=== PATIENT | male | born 1970 | race African-American/Black ===

== ENCOUNTER 2024-01-14 08:51 | Emergency (ER) | payer OTHER, SELFPAY ==
--- NOTE | 2024-01-14 08:54 | ED.EYEPROB ---
HPI - Eye Problem General Chief complaint: Eye Problems Stated complaint: Right Eye Irritation Time Seen by Provider: 01/14/24 08:54 Source: patient Mode of arrival: ambulatory Limitations: no limitations History of Present Illness HPI Narrative: Patient is a 53-year-old male that presents with right eye irritation since Saturday. Reports eye redness and mild drainage. Denies any pain, vision changes or foreign body sensation. Related Data Allergies Allergy/AdvReac Type Severity Reaction Status Date / Time No Known Allergies Allergy Verified 01/14/24 09:26 Review of Systems Review of Systems: All systems reviewed & are unremarkable except as noted in HPI and below Constitutional: Constitutional: Denies body ache(s), Denies fever(s), Denies headache(s), Denies malaise and Denies weakness Eyes: Eyes: Denies blurry vision, Reports eye discharge, Reports irritation, Reports itchy eyes, Denies loss of vision and Denies eye pain ENT: Denies otalgia, Denies headache(s), Denies nasal discharge, Denies sinus pain and Denies sore throat Cardiovascular: Cardiovascular: Denies chest pain, Denies irregular heart rhythm and Denies dyspnea Respiratory: Respiratory: Denies dyspnea Gastrointestinal: Gastrointestinal: Denies abdominal pain, Denies diarrhea, Denies nausea and Denies vomiting Musculoskeletal: Musculoskeletal: Denies back pain, Denies myalgias and Denies arthralgias Integumentary/Breasts: Skin/Breast: Denies pruritus and Denies rash Neurologic: Denies headache(s), Denies loss of vision and Denies weakness Psychiatric: Psychiatric: Reports no additional psychiatric complaints Allergic/Immunologic: Allergic/Immunologic: Reports itchy eyes PMFSH Comments At time of signature, agree with nursing past medical, surgical, social and family history. There is no relevant family history pertinent to the presenting complaint. Exam Const: General: cooperative, healthy appearing, comfortable, no acute distress and well nourished Nutritional Appearance: well nourished Orientation/consciousness: patient oriented x3 Limitations: no limitations HENMT: Head: normal to inspection, normocephalic and atraumatic Ears: external ears normal Face/Nose/Sinus: Normal external nose present, normal facial exam and face symmetric Face and sinus: normal facial exam and face symmetric Mouth: Yes lip normal Eyes: General: appearance normal, both eyes and all related structures Visual Lorenzana: normal visual lorenzana by confrontation Alignment and Position: alignment normal and position normal Periorbital: periorbital findings normal Eyelids: eyelids normal Conjunctivae: conjunctival abnormality right conjunctival injection diffuse Sclera: scleral abnormality right scleral injection diffuse Pupils: Equal, round and reactive pupils present EOM: EOMs intact bilaterally Direct Ophthalmoscopy: no photophobia Other: No hyphema, no foreign body under the lids. Neck: Neck: normal visual inspection, full ROM, no lymphadenopathy and no meningeal signs Chest: Chest palpation & inspection: normal inspection of the chest Resp: Effort & Inspection: normal respiratory effort and able to speak in complete sentences Auscultation: clear to auscultation bilaterally Cardio: Rate: regular rate Rhythm: regular rhythm Heart sounds: S1 normal heart sound present and S2 normal heart sound present GI: Inspection: normal to inspection Skin: General skin exam: normal color and no rashes or lesions noted Neuro: General: patient oriented x3, moves all extremities and no meningeal signs Cranial nerves: Yes Equal, round and reactive pupils present Speech: normal speech Gait exam (Neuro): Normal gait present Extrem: General: normal to inspection, full ROM and no edema Psych: Appearance: grossly normal and well kempt Mental Status: mental status grossly normal Speech and movement: Normal speech and movement present Affect: normal affect Attitude: cooperat
[2024-01-14 09:03] VITALS: BP 120/78; PULSE 90; RESP 18; TEMP 36.9; O2SAT 100
== END 2024-01-14 09:30 | disposition home or self-care (01) ==
PROVIDERS: Emergency Provider Nurse Practitioner Family
DX: H10.89 Other conjunctivitis (principal)
CPT/HCPCS: 99203; G0463

== ENCOUNTER 2024-06-23 17:04 | Inpatient (IN) | payer OTHER, SELFPAY ==
[2024-06-23] VITALS (11 sets, daily range): BP systolic 127–165; BP diastolic 76–93; PULSE 115–123; RESP 16–23; TEMP 37.1–38.3; O2SAT 97–99; BMI 24.6
--- NOTE | ~2024-06-23 | CT_ITS ---
EXAMINATION: CT LE RT wo con DATE: 06/23/2024 22:06 INDICATION: Right foot cellulitis. TECHNIQUE: Computed tomography (CT) of the right lower limb was performed without intravenous contras t. Automated exposure control and iterative reconstruction technique were employed. The dose-length p roduct was 772.27 mGy-cm. COMPARISON: Right foot radiographs 06/23/2024 FINDINGS: Partially visualizes da and screw fixation of right tibia. No acute fracture. There is a s oft tissue defect of the second digit. There is soft tissue gas in the second digit and dorsal to the second metatarsal. There is gas within the bones of the second proximal, middle, and distal phalange s, consistent with osteomyelitis. There is mild osteoarthritis of some of the midfoot joints and inte rphalangeal joints. IMPRESSION: 1. Osteomyelitis involving second proximal, middle, and distal phalanges. Reviewed, dictated and finalized at location A.
--- NOTE | ~2024-06-23 | US_ITS ---
EXAMINATION: US soft tissue LE RT DATE: 06/23/2024 20:34 INDICATION: Right upper thigh lump. TECHNIQUE: Multiple grayscale and Doppler ultrasound images of the right lower limb were obtained. COMPARISON: None FINDINGS: In the right upper thigh, there is a 3.1 x 1.7 x 3.2 cm lymph node. IMPRESSION: 1. Enlarged lymph node in the right upper thigh, likely reactive. Reviewed, dictated and finalized at location A.
--- NOTE | ~2024-06-23 | XR_ITS ---
EXAMINATION: XR foot RT min 3V DATE: 06/23/2024 18:55 INDICATION: Right foot infection. Diabetes. TECHNIQUE: 3 views of right foot were obtained. COMPARISON: None. FINDINGS: Alignment is normal. No fracture. There is mild osteoarthritis of many of the midfoot joint s and interphalangeal joint. There is rightward and screw fixation of tibia. There is an enthesophyte at aspect of calcaneal tuberosity. There is a soft tissue defect involving the second digit. There i s soft tissue gas in the second digit. IMPRESSION: 1. Soft tissue defect and soft tissue gas involving the second digit. No specific evidence of osteomy elitis. Reviewed, dictated and finalized at location A. IMPRESSION: 1. Soft tissue defect and soft tissue gas involving the second digit. No specif ic evidence of osteomyelitis.
--- NOTE | 2024-06-23 17:16 | ED.WOUNDLAC ---
HPI - Wound/Laceration General Chief Complaint: Wound/Laceration <Charu House APRN - Last Filed: 06/23/24 17:23> Stated Complaint: DIABETIC FOOT WOUND <Charu House APRN - Last Filed: 06/23/24 17:23> Time Seen by Provider: 06/23/24 17:15 <Charu House APRN - Last Filed: 06/23/24 17:23> Focused HPI: Patient is a 53-year-old male presents to the ER with a right foot wound. He reports he is diabetic but does not take medication to control his blood sugar. Patient reports I wore the wrong shoes about 30 days ago and now my big toe and 2nd toe are infected. He reports he has not had much to eat over the last couple of days besides some orange juice. Patient denies pain in his right foot, but reports he does have feeling in that foot. He also endorses having a right upper thigh boil. Patient reports he has a primary care doctor but does not have any method of checking his blood sugar at home. He denies chest pain, shortness of breath, other signs/symptoms of illness. GENERAL: Well-appearing, well-nourished, and in no acute distress. HEAD: Normocephalic, atraumatic. CHEST: Clear to auscultation. ?No respiratory distress. HEART: Tachycardia and regular rhythm.? NEURO: ?Alert and oriented x3. SKIN: Patient's 1st digit on his right foot is boggy with whitened skin. It is not warm to the touch. Cap refill returns in approximately 3 seconds. Patient's 2nd digit on his right foot is necrotic, unable to assess skin on this digit d/t necrosis. Patient screened in triage and initial orders placed.? ?Additional care and disposition to be based upon?diagnostic testing and treatment. <Charu House APRN - Last Filed: 06/23/24 17:23> Focused HPI: Patient is a 53-year-old male presents to the ER with a right foot wound. He reports he is diabetic but does not take medication to control his blood sugar. Patient reports I wore the wrong shoes about 30 days ago and now my big toe and 2nd toe are infected. He reports he has not had much to eat over the last couple of days besides some orange juice. Patient denies pain in his right foot, but reports he does have feeling in that foot. He also endorses having a right upper thigh boil. Patient reports he has a primary care doctor but does not have any method of checking his blood sugar at home. He denies chest pain, shortness of breath, other signs/symptoms of illness. GENERAL: Well-appearing, well-nourished, and in no acute distress. HEAD: Normocephalic, atraumatic. CHEST: Clear to auscultation. ?No respiratory distress. HEART: Tachycardia and regular rhythm.? NEURO: ?Alert and oriented x3. SKIN: Patient's 1st digit on his right foot is boggy with whitened skin. It is not warm to the touch. Cap refill returns in approximately 3 seconds. Patient's 2nd digit on his right foot is necrotic, unable to assess skin on this digit d/t necrosis. Patient screened in triage and initial orders placed.? ?Additional care and disposition to be based upon?diagnostic testing and treatment. <Grace Montoya PA-C - Last Filed: 06/23/24 21:59> Source: patient <Grace Montoya PA-C - Last Filed: 06/23/24 21:59> Mode of arrival: ambulatory <Grace Montoya PA-C - Last Filed: 06/23/24 21:59> Limitations: no limitations <Grace Montoya PA-C - Last Filed: 06/23/24 21:59> History of Present Illness HPI narrative: Agree with above HPI. The patient reports it has been over 1 year that he has been on diabetic medication. <Grace Montoya PA-C - Last Filed: 06/23/24 21:59> Related Data Home Medications: Home Medications Medication Instructions Recorded Confirmed No Home Medications 06/23/24 06/23/24 <Charu House APRN - Last Filed: 06/23/24 17:23> Allergies/Adverse Reactions: Allergies Allergy/AdvReac Type Severity Reaction Status Date / Time No Kno
[2024-06-23 17:17] LABS: Glucose Point of Care 305 mg/dl (65-105)
--- NOTE | 2024-06-23 17:30 | ECG_ITS ---
Test Date: 2024-06-23 17:25:34 Measurements Intervals [place] Rate: 119 P: 62 GA: 139 QRS: 251 QRSD: 140 T: 30 QT: 320 QTc: 451 Interpretive Statements SINUS TACHYCARDIA POSSIBLE LEFT ATRIAL ENLARGEMENT [-0.1mV P WAVE IN V1/V2] RIGHT BUNDLE BRANCH BLOCK No previous ECG available for comparison Electronically Signed On 06-24-2024 09:38:53 CDT by Amrita Rangel M.D.
[2024-06-23] MEDS: SODIUM CHLORIDE 0.9% IV 1,000 ML 999 ML IV CONT ×2 (17:59→18:23)
[2024-06-23 18:00] LABS: Hematocrit 31.9 % (42.0-52.0); Hemoglobin 11.3 g/dL (14.0-18.0); Mean Corpuscular HGB Conc 35.4 g/dl (32-36); Mean Corpuscular Hemoglobin 26.8 pg (26-34); Mean Corpuscular Volume 75.8 fl (80-100); Mean Platelet Volume 10.6 fl (7.4-10.4); Platelet Count Result 347 k/mm3 (150-375); Red Blood Count 4.21 M/mm3 (4.6-6.20); Red Cell Distribution Width 12.3 % (11.5-14.5); White Blood Count 24.9 K/mm3 (4.5-10.0)
[2024-06-23] MEDS: CEFEPIME 2 GM/NS 50 ML 2 GM/50 ML BAG IVPB (18:00)
[2024-06-23 18:11] LABS: INR 1.2; Prothrombin Time 15.3 Seconds (11.1-14.7)
[2024-06-23 18:12] LABS: Partial Thromboplastin Time 37.3 Seconds (22.3-36.8)
[2024-06-23 18:14] LABS: Lactic Acid Reflex 1.3 mmol/L (0.7-2.0)
[2024-06-23 18:15] LABS: Alanine Aminotransferase 19 U/L (6-50); Albumin Level 4.1 g/dL (3.5-5.1); Alkaline Phosphatase 120 U/L (38-126); Anion Gap 11 mmol/L (4-12); Aspartate Amino Transferase 23 U/L (17-59); Bilirubin,Total 1.1 mg/dL (0.2-1.3); Blood Urea Nitrogen 17 mg/dL (9-20); Calcium 9.4 mg/dL (8.4-10.2); Carbon Dioxide 26 mmol/L (22-30); Chloride 90 mmol/L (98-107); Estimated CRCL calculation 50 ml/min; Estimated Glomerular Filt Rate 52; Glucose 300 mg/dL (65-110); Potassium 4.4 mmol/L (3.4-5.0); Sodium 127 mmol/L (137-145)
[2024-06-23 18:21] LABS: Hemoglobin A1C 10.8 % (<5.7)
[2024-06-23] MEDS: metroNIDAZOLE 500 MG/ISO 100ML 500 MG/100 ML BAG 100 MG IVPB (18:23)
[2024-06-23 18:34] LABS: Band Neutrophils Percent 3 % (0-6); Basophils Absolute Manual 0.24 K/mm3 (0.0-0.1); Basophils Percent Manual 1 % (0-1); Eosinophils Absolute Manual 0.24 K/mm3 (0.02-0.50); Eosinophils Percent Manual 1 % (0-4); Lymphocytes Absolute Manual 0.99 K/mm3 (1.1-4.5); Monocytes Absolute Manual 1.24 K/mm3 (0.1-0.90); Monocytes Percent Manual 5 % (3-9); Neutrophils Absolute Manual 22.16 K/mm3 (1.3-6.7); Neutrophils Percent Manual 86 % (46-73); Total Cells Counted 100
[2024-06-23 18:35] LABS: Beta-Hydroxybutyrate/Acetoacetate 0.63 mmol/L (0.02-0.27); Platelet Estimate Adequate (Adequate); Schistocytes None Seen
[2024-06-23] MEDS: VANCOMYCIN 2,000 MG/NS 500 ML 2,000 MG/500 ML BAG 250 MG IVPB (19:11)
[2024-06-23 19:15] LABS: CRP 37.1 mg/dL (<1.0)
[2024-06-23] MEDS: ACETAMINOPHEN 500 MG TABLET 1000 MG PO (21:38)
[2024-06-23] MEDS: CLINDAMYCIN 900 MG/D5W 50 ML 900 MG/50 ML PIGGYBACK 50 MG IVPB (21:38)
--- NOTE | 2024-06-23 21:52 | PC.NURSE ---
pt states they are still unable to urinate at this time and is educated to use call light with any urge to provide UA
--- NOTE | 2024-06-23 22:06 | PM.IMHP ---
H&P: HPI History of Present Illness Date/Time: 06/23/24 20:06 Chief Complaint: Foot wound Narrative: 53-year-old noncompliant diabetic with associated diabetic peripheral neuropathy who presented to the ER with worsening foot wound. The patient reports that approximately month ago he noticed a blister on his left toe which he popped. He was applying dressings every other day to the toe. Approximately 2 weeks ago he noticed that his 2nd toe acutely became black and as time progressed he noticed that the shape of the toe which changing. He states that he was suspicious that the toe was already beyond the point of saving but he still the not come in to the ER. Over the last 2 weeks knee developed swelling up into the ankle and anterior riojas. Over the last 5-6 days he has had increasing malodorous drainage from the base of the 1st and 2nd toe. The great toe has remained moist white in swollen. The area of abnormal shape that he referred to on his toe is where he has bone exposed from the tip of the medial 2nd toe down to the base of said toe. He has minimal sensation in the foot he can feel his foot being touched but denies having pain. He has had associated weakness and intermittent fevers up to 102. He has been having fevers for at least 5 days. He told the ER provider that he has not actually seen his primary care doctor in year. He told me he last saw his primary care doctor in May but I assume that this was likely May 2023. He stated at that time the pharmacy did not have his insurance information and by the time he gave the pharmacy is insurance information he has same day had put the medications back in never bothered to follow-up. He has not been taking any medications for his diabetes. He denies a history of hypertension. In the ER patient's blood pressures have been ranging between 130/70 up to 160/86. On arrival to the ER patient was significantly tachycardic with heart rates in the 120s to 130s. Initially he was afebrile but repeat temperature was 101?. He does report associated fatigue, body aches and has had nausea vomiting and diarrhea for the last day or 2. He has acute kidney injury on labs. He denies history of kidney disease but again has not followed up with his doctor in a year. In the ER he received 2 L of isotonic fluids, cefepime and vancomycin. At the time of my evaluation I requested the addition of clindamycin. Patient's glucose in the ER was elevated to 300 which correlated with his hemoglobin A1c of 10.8. He denies any associated pain in the foot or leg. He did mention an area of lump in the right anterior thigh with soft tissue ultrasound demonstrating reactive lymph noted that location. Review of Systems Review of Systems: 12 systems were reviewed with pertinent positives and negatives per HPI. Except as documented in the HPI, all other systems were reviewed and are negative. [facility] Past Medical History Medical History (Updated 06/23/24 @ 22:39 by Cecile Matthews DO) Diabetic neuropathy Erectile dysfunction associated with type 2 diabetes mellitus Full dentures Type 2 diabetes mellitus Surgical History Surgical History (Updated 06/23/24 @ 22:39 by Cecile Matthews DO) Status post open reduction with internal fixation of fracture Right Tibial fracture Family History Family History (Updated 06/23/24 @ 22:35 by Cecile Matthews DO) Mother , At age 74 Diabetes mellitus Father Age older than 80 years Social History Social History (Updated 06/23/24 @ 22:44 by Cecile Matthews DO) Social History: Patient lives in his own home. He is engaged. He is a lifelong nonsmoker. He does drink approximately 2 alcoholic beverages a week. He used to smoke marijuana but has not done so in many years. 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 He has 4 adult daughters and several grandchildren. Code status: Full code Surrogate decision maker: Dario benavides)
--- NOTE | 2024-06-23 23:15 | ADMGEN ---
This patient, Cristofer Farnsworth Jr., was admitted to Medical Room 258-01. Patient/family oriented to hospital policies and general routines including ID bracelet, bed and alarms, visiting hours, pain management, procedures, bathroom and other care routines, personal items, smoking policy, room service/diet, and visiting hours. Information on how to activate the Rapid Response Team has been discussed. Patient/Family are encouraged to report perceived risks to care and to ask questions if they do not understand what they are told or what they should do.
[2024-06-23] MEDS: SODIUM CHLORIDE 0.9% IV 1,000 ML 150 ML IV CONT (23:46)
[2024-06-24] VITALS (9 sets, daily range): BP systolic 130–135; BP diastolic 64–74; PULSE 64–115; RESP 16–20; TEMP 36.2–38.2; O2SAT 97–100
[2024-06-24 00:09] LABS: Add Urine Microscopic? YES; Appearance Urine Cloudy (Clear); Bilirubin Urine Negative (Negative); Blood Urine 2+ (Negative); Color Urine Yellow (Yellow); Glucose Urine UA Trace mg/dL (Negative); Hyaline Casts Urine Present /lpf; Ketones Urine 1+ mg/dL (Negative); Leukocyte Esterase Ur 1+ LEU/UL (Negative); Need Manual Microscopic Reviewed; Nitrate Urine Negative (Negative); Non Pathogenic Casts >20; Protein Urine 2+ mg/dL (Negative); RBC Urine 0-2 /hpf (0-2); Specific Grav Ur 1.016 (1.001-1.035); Squamous Epithelial Cell Urine Few /hpf (Few); WBC Urine 21-50 /hpf (0-3)
[2024-06-24 00:12] LABS: Bacteria Urine Trace /hpf
[2024-06-24] MEDS: CLINDAMYCIN 900 MG/D5W 50 ML 900 MG/50 ML PIGGYBACK 50 MG IVPB (05:01)
[2024-06-24 05:14] LABS: Basophils Absolute Auto 0.1 K/mm3 (0.0-0.1); Basophils Percent Auto 0.3 % (0.2-1.2); Eosinophils Percent Auto 0.1 % (0-4.4); Hematocrit 26.6 % (42.0-52.0); Hemoglobin 9.1 g/dL (14.0-18.0); Immature Granulocyte Absolute 0.23 K/mm3 (0.00-0.031); Immature Granulocyte Percent A 1.2 % (0-0.5); Lymphocytes Absolute Auto 1.56 K/mm3 (0.9-3.2); Lymphocytes Percent Auto 8.3 % (18.3-44.2); Mean Corpuscular HGB Conc 34.2 g/dl (32-36); Mean Corpuscular Hemoglobin 26.2 pg (26-34); Mean Corpuscular Volume 76.7 fl (80-100); Mean Platelet Volume 10.4 fl (7.4-10.4); Monocytes Absolute Auto 1.6 K/mm3 (0.1-0.6); Monocytes Percent Auto 8.7 % (2.6-8.5); Neutrophils Absolute Auto 15.4 K/mm3 (1.3-6.7); Neutrophils Percent Auto 81.4 % (45.5-73.1); Platelet Count Result 274 k/mm3 (150-375); Red Blood Count 3.47 M/mm3 (4.6-6.20); Red Cell Distribution Width 12.5 % (11.5-14.5); White Blood Count 18.9 K/mm3 (4.5-10.0)
[2024-06-24 05:34] LABS: Anion Gap 7 mmol/L (4-12); Blood Urea Nitrogen 16 mg/dL (9-20); Calcium 8.6 mg/dL (8.4-10.2); Carbon Dioxide 24 mmol/L (22-30); Chloride 99 mmol/L (98-107); Estimated CRCL calculation 69 ml/min; Estimated Glomerular Filt Rate > 60; Glucose 226 mg/dL (65-110); Potassium 4.3 mmol/L (3.4-5.0); Sodium 130 mmol/L (137-145)
--- NOTE | 2024-06-24 07:33 | P.PNIM_ITS ---
Progress Note: A&P Assessment and Plan (1) Sepsis: Qualifiers: Sepsis acute organ dysfunction status: unspecified Sepsis type: sepsis due to unspecified organism Qualified Code(s): A41.9 - Sepsis, unspecified o rganism Code(s): A41.9 - Sepsis, unspecified organism Status: Acute Assessment and Plan: 06/24/24: * Patient initially meeting sepsis criteria with WBC 24.9,Temp 101, HR 123, RR 21, NORMAN with creatinine 1.70. * After receiving 2L NS heart rate improved to 99, RR 16, temp 97.2, creatinine 1.20 * Right lower extremity CT showing osteomyelitis involving the 2nd proximal, middle, and distal phalanges * Initial white blood cell count 24.9, now down to 18.9 today * Creatinine 2.2 0 today * CRP 37.1 initially * Blood and urine cultures were obtained and pending * Continue vancomycin, Flagyl, cefepime * Will discontinue Clindamycin * Continue cardiac monitoring for now (2) Osteomyelitis of foot, right, acute: Code(s): M86.171 - Other acute osteomyelitis, right ankle and foot Status: Acute Assessment and Plan: 06/24/24: * Right foot x-ray showing soft tissue defect and soft tissue gas involving the 2nd digit * Soft tissue ultrasound of the right lower extremity shows an enlarged lymph node in the right upper thigh likely reactive * Right lower extremity CT showing osteomyelitis involving 2nd proximal, middle, and distal phalanges * Continue pain control * General surgery consulted * Continue NPO status for now * Continue IV antibiotics * Blood sugar controlled (3) Diabetic wet gangrene of the foot: Code(s): E11.52 - Type 2 diabetes mellitus with diabetic peripheral angiopathy with gangrene Status: Acute Assessment and Plan: See above (4) Uncontrolled diabetes mellitus: Qualifiers: Diabetes mellitus type: type 2 Glycemic state: with hyperglycemia Qualified Code(s): E11.65 - Type 2 diabetes mellitus with hyperglycemia Status: Acute Assessment and Plan: 06/24/24: * Blood sugars ranging 226-300 * Hgb A1C 10.8 * Accu checks AC/HS * Mid dose SSI ordered * hypoglycemic protocol in place * Diabetic diet ordered * Patient not on any home medication * conservation educator consult * Dietitian consult (5) Elevated blood pressure reading: Code(s): R03.0 - Elevated blood-pressure reading, without diagnosis of hypertension Status: Acute Assessment and Plan: 06/24/24: * Blood pressure ranging 127/89-160/86 * Patient currently does not take any home medications * hypertension with diabetes education. * Patient started on amlodipine 5 mg daily (6) Acute kidney injury: Code(s): N17.9 - Acute kidney failure, unspecified Status: Acute Assessment and Plan: 06/24/24: * Initial creatinine 1.70 * After 2 L of normal saline creatinine corrected to 1.20 * Continue to trend (7) Anemia: Code(s): D64.9 - Anemia, unspecified Status: Acute Assessment and Plan: 06/24/24: * Hgb 11.3 initially, now down to 9.1 * Check Iron, Ferritin, Vitamin B12, folic acid, and TSH Time Spent With Patient Time with patient: Greater than 35 minutes Subjective Date/time seen: 06/24/24 07:33 Interval history: Interval history: This is a 53-year-old male who presented to the hospital on 06/23/2024 for evaluation of a left foot wound. Workup in the hospital included right foot x- ray which showed soft tissue defect and soft tissue gas involving the 2nd digit no specific evidence of osteomyelitis. Soft tissue
--- NOTE | 2024-06-24 07:33 | PM.IMPN ---
Progress Note: A&P Assessment and Plan (1) Sepsis: Qualifiers: Sepsis acute organ dysfunction status: unspecified Sepsis type: sepsis due to unspecified organism Qualified Code(s): A41.9 - Sepsis, unspecified organism Code(s): A41.9 - Sepsis, unspecified organism Status: Acute Assessment and Plan: 06/24/24: Patient initially meeting sepsis criteria with WBC 24.9,Temp 101, HR 123, RR 21, NORMAN with creatinine 1.70. After receiving 2L NS heart rate improved to 99, RR 16, temp 97.2, creatinine 1.[address] showing osteomyelitis involving the 2nd proximal, middle, and distal phalanges Initial white blood cell count 24.9, now down to 18.9 today Creatinine 2.2 0 today CRP 37.1 initially Blood and urine cultures were obtained and pending Continue vancomycin, Flagyl, cefepime Will discontinue Clindamycin Continue cardiac monitoring for now (2) Osteomyelitis of foot, right, acute: Code(s): M86.171 - Other acute osteomyelitis, right ankle and foot Status: Acute Assessment and Plan: 06/24/24: Right foot x-ray showing soft tissue defect and soft tissue gas involving the 2nd digit Soft tissue ultrasound of the right lower extremity shows an enlarged lymph node in the right upper thigh likely reactive Right lower extremity CT showing osteomyelitis involving 2nd proximal, middle, and distal phalanges Continue pain control General surgery consulted Continue NPO status for now Continue IV antibiotics Blood sugar controlled (3) Diabetic wet gangrene of the foot: Code(s): E11.52 - Type 2 diabetes mellitus with diabetic peripheral angiopathy with gangrene Status: Acute Assessment and Plan: See above (4) Uncontrolled diabetes mellitus: Qualifiers: Diabetes mellitus type: type 2 Glycemic state: with hyperglycemia Qualified Code(s): E11.65 - Type 2 diabetes mellitus with hyperglycemia Status: Acute Assessment and Plan: 06/24/24: Blood sugars ranging 226-300 Hgb A1C 10.8 Accu checks AC/HS Mid dose SSI ordered hypoglycemic protocol in place Diabetic diet ordered Patient not on any home medication coding educator consult Dietitian consult (5) Elevated blood pressure reading: Code(s): R03.0 - Elevated blood-pressure reading, without diagnosis of hypertension Status: Acute Assessment and Plan: 06/24/24: Blood pressure ranging 127/89-160/86 Patient currently does not take any home medications hypertension with diabetes education. Patient started on amlodipine 5 mg daily (6) Acute kidney injury: Code(s): N17.9 - Acute kidney failure, unspecified Status: Acute Assessment and Plan: 06/24/24: Initial creatinine 1.70 After 2 L of normal saline creatinine corrected to 1.20 Continue to trend (7) Anemia: Code(s): D64.9 - Anemia, unspecified Status: Acute Assessment and Plan: 06/24/24: Hgb 11.3 initially, now down to 9.1 Check Iron, Ferritin, Vitamin B12, folic acid, and TSH Time Spent With Patient Time with patient: Greater than 35 minutes Subjective Date/time seen: 06/24/24 07:33 Interval history: Interval history: This is a 53-year-old male who presented to the hospital on 06/23/2024 for evaluation of a left foot wound. Workup in the hospital included right foot x-ray which showed soft tissue defect and soft tissue gas involving the 2nd digit no specific evidence of osteomyelitis. Soft tissue ultrasound showed an enlarged lymph node in the right upper thigh likely reactive. Lower extremity CT showing osteomyelitis involving 2nd proximal, middle, and distal phalanges. Initial labs showed a white blood cell count of 24.9, hemoglobin 11.3, band neutrophils 3, sodium 127, chloride 90, creatinine 1.7, EGFR 52, blood sugar ranging 226-305, hemoglobin A1c 10.8, C reactive protein 37.1, beta hydroxybutyrate 0.63. UA showed cloudy appearance, 2+
[2024-06-24 08:20] LABS: Glucose Point of Care 256 mg/dl (65-105)
[2024-06-24] MEDS: SODIUM CHLORIDE 0.9% IV 1,000 ML 150 ML IV CONT (08:30)
[2024-06-24 09:01] LABS: Cholesterol 99 mg/dL (0-200); HDL Direct 18 mg/dL; Triglycerides 96 mg/dL (<150)
[2024-06-24 09:15] LABS: LDL Cholesterol Direct 51 mg/dL
[2024-06-24 09:32] LABS: Iron 25 ug/dL (49-181)
[2024-06-24 09:42] LABS: Percent Iron Saturation 15 % (20-50)
[2024-06-24] MEDS: INSULIN ASPART (*BKC) 100 UNITS/ML SUB-Q ×3 (09:47→17:38)
[2024-06-24] MEDS: amLODIPine BESYLATE 5 MG TABLET PO (09:47)
[2024-06-24 10:02] LABS: Vitamin B12 > 1000.0 pg/mL (239-931)
[2024-06-24 12:11] LABS: Glucose Point of Care 216 mg/dl (65-105)
[2024-06-24] MEDS: CEFEPIME 2 GM/NS 50 ML 2 GM/50 ML BAG IVPB (12:43)
[2024-06-24] MEDS: SACCHAROMYCES BOULARDII 250 MG CAPSULE PO ×2 (14:00→17:37)
[2024-06-24] MEDS: metroNIDAZOLE 500 MG/ISO 100ML 500 MG/100 ML BAG 100 MG IVPB ×2 (14:00→21:44)
[2024-06-24] MEDS: VANCOMYCIN 1,500 MG/NS 500 ML 1,500 MG/500 ML BAG 250 MG IVPB (15:07)
--- NOTE | 2024-06-24 15:10 | PM.CNGS ---
Assessment and Plan Assessment and plan (1) Gangrene of toe of right foot: Code(s): I96 - Gangrene, not elsewhere classified Status: Acute Assessment and Plan: I have reviewed the CT and discussed the findings with the patient. He has a gangrenous necrotic 2nd toe right foot require amputation. CT does show proximally to the other digits. Will attempt to perform amputation the 2nd toe and avoid any further amputations at this time. I discussed with patient that this may require the wound to be left open to continue healing due to the infection. This might also require further amputations if the infection is not under control. Patient has hardware in his right tibia which would make below-knee amputation very difficult. I stressed the importance to the patient about adequate diabetes control to prevent future wound complications like this. Will plan for right 2nd toe ray amputation and incision and drainage of right 1st toe tomorrow. I discussed the procedure, risks, benefits, alternatives. Questions were answered. (2) Osteomyelitis of foot, right, acute: Code(s): M86.171 - Other acute osteomyelitis, right ankle and foot Status: Acute (3) Uncontrolled diabetes mellitus: Qualifiers: Diabetes mellitus type: type 2 Glycemic state: with hyperglycemia Qualified Code(s): E11.65 - Type 2 diabetes mellitus with hyperglycemia Status: Acute (4) Sepsis: Qualifiers: Sepsis acute organ dysfunction status: unspecified Sepsis type: sepsis due to unspecified organism Qualified Code(s): A41.9 - Sepsis, unspecified organism Code(s): A41.9 - Sepsis, unspecified organism Status: Acute History of Present Illness Consult details Consult date: 06/24/24 Reason for consult: other (Gangrene of 2nd toe of right foot) Requesting physician: Grace Montoya PA-C Narrative: This is a 53-year-old man who presented to the emergency department overnight with a right foot wound that was worsening. His right 2nd toe become turning necrotic about 1 month ago. He tried just treating this on his own at home but the toe continued to worsen. Over the past week there has been a very foul smell to the toe. He is also now getting some swelling and pain to the 1st and 3rd digits. He is diabetic has not been on any medication for long period of time. He was on metformin before this was causing significant diarrhea and he was then switched to [place] but had difficulty with insurance coverage. He knows that he has not been taking care this blood sugars. He was found to necrotic 2nd toe emergency depart x-ray confirmed evidence of osteomyelitis involving that toe. He was also showing signs of sepsis. Was then admitted for further treatment. Review of Systems Review of Systems: All systems reviewed & are unremarkable except as noted in HPI and below Constitutional: Constitutional: Reports fever(s) Eyes: Eyes: Denies change in vision ENT: Denies hearing loss, Denies neck pain and Denies sore throat Cardiovascular: Cardiovascular: Denies chest pain and Denies dyspnea Respiratory: Respiratory: Denies cough, Denies dyspnea and Denies wheezing Gastrointestinal: Gastrointestinal: Denies abdominal pain and Denies change in bowel habits Genitourinary: Genitourinary: Denies hematuria and Denies dysuria Musculoskeletal: Musculoskeletal: Reports as per HPI and Denies neck pain Allergic/Immunologic: Allergic/Immunologic: Denies wheezing [facility], [facility] Past Medical History Medical History (Updated 06/24/24 @ 08:22 by Bonnie York APRN) Diabetic neuropathy Erectile dysfunction associated with type 2 diabetes mellitus Full dentures Type 2 diabetes mellitus Surgical History Surgical History (Updated 06/23/24 @ 22:39 by Cecile Matthews DO) Status post open reduction with internal fixation of fracture Right Tibial fracture Family History Family History (Updated 06/23/24 @ 22:35 by Shannan
[2024-06-24 17:07] LABS: Glucose Point of Care 213 mg/dl (65-105)
[2024-06-24 20:16] LABS: Glucose Point of Care 181 mg/dl (65-105)
[2024-06-25] VITALS (19 sets, daily range): BP systolic 95–158; BP diastolic 65–80; PULSE 88–106; RESP 14–18; TEMP 36.2–38.3; O2SAT 95–100
[2024-06-25] MEDS: SODIUM CHLORIDE 0.9% IV 1,000 ML 100 ML IV CONT (00:01)
[2024-06-25] MEDS: ACETAMINOPHEN 500 MG TABLET 1000 MG PO (00:08)
[2024-06-25] MEDS: CEFEPIME 2 GM/NS 50 ML 2 GM/50 ML BAG IVPB ×2 (00:50→13:00)
[2024-06-25] MEDS: metroNIDAZOLE 500 MG/ISO 100ML 500 MG/100 ML BAG 100 MG IVPB ×3 (05:54→22:42)
[2024-06-25 05:59] LABS: Basophils Absolute Auto 0.1 K/mm3 (0.0-0.1); Basophils Percent Auto 0.3 % (0.2-1.2); Eosinophils Percent Auto 0.2 % (0-4.4); Hematocrit 26.8 % (42.0-52.0); Hemoglobin 9.3 g/dL (14.0-18.0); Immature Granulocyte Absolute 0.18 K/mm3 (0.00-0.031); Lymphocytes Absolute Auto 1.34 K/mm3 (0.9-3.2); Lymphocytes Percent Auto 7.7 % (18.3-44.2); Mean Corpuscular HGB Conc 34.7 g/dl (32-36); Mean Corpuscular Hemoglobin 26.7 pg (26-34); Mean Platelet Volume 10.1 fl (7.4-10.4); Monocytes Absolute Auto 1.5 K/mm3 (0.1-0.6); Monocytes Percent Auto 8.5 % (2.6-8.5); Neutrophils Absolute Auto 14.3 K/mm3 (1.3-6.7); Neutrophils Percent Auto 82.3 % (45.5-73.1); Platelet Count Result 269 k/mm3 (150-375); Red Blood Count 3.48 M/mm3 (4.6-6.20); Red Cell Distribution Width 12.6 % (11.5-14.5); White Blood Count 17.4 K/mm3 (4.5-10.0)
[2024-06-25 06:14] LABS: Alanine Aminotransferase 18 U/L (6-50); Albumin Level 3.2 g/dL (3.5-5.1); Alkaline Phosphatase 99 U/L (38-126); Anion Gap 6 mmol/L (4-12); Aspartate Amino Transferase 26 U/L (17-59); Bilirubin,Total 0.7 mg/dL (0.2-1.3); Blood Urea Nitrogen 12 mg/dL (9-20); Calcium 8.6 mg/dL (8.4-10.2); Carbon Dioxide 25 mmol/L (22-30); Chloride 101 mmol/L (98-107); Estimated CRCL calculation 91 ml/min; Estimated Glomerular Filt Rate > 60; Glucose 194 mg/dL (65-110); Sodium 132 mmol/L (137-145)
[2024-06-25 06:20] LABS: Vancomycin Trough 7.8 ug/mL (10.0-20.0)
[2024-06-25] MEDS: VANCOMYCIN 2,000 MG/NS 500 ML 2,000 MG/500 ML BAG 250 MG IVPB (07:37)
--- NOTE | 2024-06-25 07:49 | P.PNIM_ITS ---
Progress Note: A&P Assessment and Plan (1) Sepsis: Qualifiers: Sepsis acute organ dysfunction status: unspecified Sepsis type: sepsis due to unspecified organism Qualified Code(s): A41.9 - Sepsis, unspecified o rganism Code(s): A41.9 - Sepsis, unspecified organism Status: Acute Assessment and Plan: 06/24/24: * Patient initially meeting sepsis criteria with WBC 24.9,Temp 101, HR 123, RR 21, NORMAN with creatinine 1.70. * After receiving 2L NS heart rate improved to 99, RR 16, temp 97.2, creatinine 1.20 * Right lower extremity CT showing osteomyelitis involving the 2nd proximal, middle, and distal phalanges * Initial white blood cell count 24.9, now down to 18.9 today * Creatinine 2.2 today * CRP 37.1 initially * Blood and urine cultures were obtained and pending * Continue vancomycin, Flagyl, cefepime * Will discontinue Clindamycin * Continue cardiac monitoring for now 06/25/24: * Blood culture showing no growth today on preliminary read. * Urine culture negative. * Continue vancomycin, Flagyl, cefepime * White blood cell count down to 17.4, creatinine 0.90 * We can go ahead and DC continuous process mechanic (2) Osteomyelitis of foot, right, acute: Code(s): M86.171 - Other acute osteomyelitis, right ankle and foot Status: Acute Assessment and Plan: 06/24/24: * Right foot x-ray showing soft tissue defect and soft tissue gas involving the 2nd digit * Soft tissue ultrasound of the right lower extremity shows an enlarged lymph node in the right upper thigh likely reactive * Right lower extremity CT showing osteomyelitis involving 2nd proximal, middle, and distal phalanges * Continue pain control * General surgery consulted * Continue NPO status for now * Continue IV antibiotics * Blood sugar controlled 06/25/24: * Plan for surgery today with General surgery * Remain NPO * Continue IV fluids for now * Continue IV antibiotics * Continue pain control (3) Diabetic wet gangrene of the foot: Code(s): E11.52 - Type 2 diabetes mellitus with diabetic peripheral angiopathy with gangrene Status: Acute Assessment and Plan: See above (4) Uncontrolled diabetes mellitus: Qualifiers: Diabetes mellitus type: type 2 Glycemic state: with hyperglycemia Qualified Code(s): E11.65 - Type 2 diabetes mellitus with hyperglycemia Status: Acute Assessment and Plan: 06/24/24: * Blood sugars ranging 226-300 * Hgb A1C 10.8 * Accu checks AC/HS * Mid dose SSI ordered * hypoglycemic protocol in place * Diabetic diet ordered * Patient not on any home medication * geothermal powerplant mechanic helper consult * Dietitian consult 06/25/24: * Blood sugars ranging 181-197 * Will add Lantus 8 units tonight (5) Elevated blood pressure reading: Code(s): R03.0 - Elevated blood-pressure reading, without diagnosis of hypertension Status: Acute Assessment and Plan: 06/24/24: * Blood pressure ranging 127/89-160/86 * Patient currently does not take any home medications * hypertension with diabetes education. * Patient started on amlodipine 5 mg daily 06/25/24: * Continue amlodipine (6) Acute kidney injury: Code(s): N17.9 - Acute kidney failure, unspecified Status: Acute Assessment and Plan: 06/24/24: * Initial creatinine 1.70 * After 2 L of normal saline creatinine corrected to 1.20 * Continue to trend 06/25/24: * Creatinine 0.90 today (7) Anemia: Code(s): D64.9 - Anemia, unspecified
--- NOTE | 2024-06-25 07:49 | PM.IMPN ---
Progress Note: A&P Assessment and Plan (1) Sepsis: Qualifiers: Sepsis acute organ dysfunction status: unspecified Sepsis type: sepsis due to unspecified organism Qualified Code(s): A41.9 - Sepsis, unspecified organism Code(s): A41.9 - Sepsis, unspecified organism Status: Acute Assessment and Plan: 06/24/24: Patient initially meeting sepsis criteria with WBC 24.9,Temp 101, HR 123, RR 21, NORMAN with creatinine 1.70. After receiving 2L NS heart rate improved to 99, RR 16, temp 97.2, creatinine 1.[address] showing osteomyelitis involving the 2nd proximal, middle, and distal phalanges Initial white blood cell count 24.9, now down to 18.9 today Creatinine 2.2 today CRP 37.1 initially Blood and urine cultures were obtained and pending Continue vancomycin, Flagyl, cefepime Will discontinue Clindamycin Continue cardiac monitoring for now 06/25/24: Blood culture showing no growth today on preliminary read. Urine culture negative. Continue vancomycin, Flagyl, cefepime White blood cell count down to 17.4, creatinine 0.90 We can go ahead and DC continuous naturalization examiner (2) Osteomyelitis of foot, right, acute: Code(s): M86.171 - Other acute osteomyelitis, right ankle and foot Status: Acute Assessment and Plan: 06/24/24: Right foot x-ray showing soft tissue defect and soft tissue gas involving the 2nd digit Soft tissue ultrasound of the right lower extremity shows an enlarged lymph node in the right upper thigh likely reactive Right lower extremity CT showing osteomyelitis involving 2nd proximal, middle, and distal phalanges Continue pain control General surgery consulted Continue NPO status for now Continue IV antibiotics Blood sugar controlled 06/25/24: Plan for surgery today with General surgery Remain NPO Continue IV fluids for now Continue IV antibiotics Continue pain control (3) Diabetic wet gangrene of the foot: Code(s): E11.52 - Type 2 diabetes mellitus with diabetic peripheral angiopathy with gangrene Status: Acute Assessment and Plan: See above (4) Uncontrolled diabetes mellitus: Qualifiers: Diabetes mellitus type: type 2 Glycemic state: with hyperglycemia Qualified Code(s): E11.65 - Type 2 diabetes mellitus with hyperglycemia Status: Acute Assessment and Plan: 06/24/24: Blood sugars ranging 226-300 Hgb A1C 10.8 Accu checks AC/HS Mid dose SSI ordered hypoglycemic protocol in place Diabetic diet ordered Patient not on any home medication peer educator consult Dietitian consult 06/25/24: Blood sugars ranging 181-197 Will add Lantus 8 units tonight (5) Elevated blood pressure reading: Code(s): R03.0 - Elevated blood-pressure reading, without diagnosis of hypertension Status: Acute Assessment and Plan: 06/24/24: Blood pressure ranging 127/89-160/86 Patient currently does not take any home medications hypertension with diabetes education. Patient started on amlodipine 5 mg daily 06/25/24: Continue amlodipine (6) Acute kidney injury: Code(s): N17.9 - Acute kidney failure, unspecified Status: Acute Assessment and Plan: 06/24/24: Initial creatinine 1.70 After 2 L of normal saline creatinine corrected to 1.20 Continue to trend 06/25/24: Creatinine 0.90 today (7) Anemia: Code(s): D64.9 - Anemia, unspecified Status: Acute Assessment and Plan: 06/24/24: Hgb 11.3 initially, now down to 9.1 Check Iron, Ferritin, Vitamin B12, folic acid, and TSH 06/25/24: Iron 25, TIBC 165, iron saturation 15, ferritin 928, vitamin B 12 greater than a 1000, folate 12.0, TSH 1.850 Continue to trend Time Spent With Patient Time with patient: 25 - 35 minutes Subjective Date/time seen: 06/25/24 07:49 Interval history: Interval history: This is a 53-year-old male who presented to the hospital on
[2024-06-25 08:00] LABS: Glucose Point of Care 197 mg/dl (65-105)
[2024-06-25] MEDS: amLODIPine BESYLATE 5 MG TABLET PO (08:11)
[2024-06-25 12:23] LABS: Glucose Point of Care 172 mg/dl (65-105)
[2024-06-25] MEDS: LACTATED RINGERS 1,000 ML 30 ML IV CONT (12:30)
--- NOTE | 2024-06-25 12:47 | WPDHPUPDATE1 ---
History and Physical Update Update Date/Time: 06/25/24 12:47 History and Physical has been reviewed, including an updated exam of the patient. There are NO changes in the patient's condition. Risks, benefits, and alternatives have been discussed and questions answered. Patient agrees to proceed with procedure.
--- NOTE | 2024-06-25 13:00 | WPDANESEPPF ---
Anes - Initial Pre Proc Eval Procedure: Operation Date: 06/25/24 12:30 Proposed Procedures p Right Second Toe Ray Amputation, - Tevin Briscoe DO s Incision and Drainage Right First Toe - Tevin Briscoe DO Date/Time: 06/25/24 13:00 Surgeon: Cecile Matthews DO Pre Op Diagnosis: Necrotic Diabetic Toe Wounds/Sepsis Patient Data Age: 53 Gender: M Height: 1.8 m Weight: 80.1 kg Last Vital Signs Temp 36.4 C L 06/25/24 08:09 Pulse 96 06/25/24 08:09 Resp 16 06/25/24 08:09 BP 158/80 H 06/25/24 08:09 Pulse Ox 100 06/25/24 08:09 O2 Del Method Room Air 06/25/24 07:37 Allergies Allergy/AdvReac Type Severity Reaction Status Date / Time No Known Allergies Allergy Verified 06/23/24 22:36 Home Medications Medication Instructions Recorded Confirmed Type No Home Medications 06/23/24 06/23/24 History Laboratory Tests 06/24/24 06/24/24 06/25/24 16:58 19:44 05:53 WBC 17.4 H K/mm3 (4.5-10.0) RBC 3.48 L M/mm3 (4.6-6.20) Hgb 9.3 L g/dL (14.0-18.0) Hct 26.8 L % (42.0-52.0) MCV 77.0 L fl (80-100) MCH 26.7 pg (26-34) MCHC 34.7 g/dl (32-36) RDW 12.6 % (11.5-14.5) Plt Count 269 k/mm3 (150-375) MPV 10.1 fl (7.4-10.4) Immature Gran % (Auto) 1.0 H % (0-0.5) Neut % (Auto) 82.3 H % (45.5-73.1) Lymph % (Auto) 7.7 L % (18.3-44.2) Chester % (Auto) 8.5 % (2.6-8.5) Eos % (Auto) 0.2 % (0-4.4) Baso % (Auto) 0.3 % (0.2-1.2) Lymph # (Auto) 1.34 K/mm3 (0.9-3.2) Chester # (Auto) 1.5 H K/mm3 (0.1-0.6) Eos # (Auto) 0.0 K/mm3 (0-0.3) Baso # (Auto) 0.1 K/mm3 (0.0-0.1) Abs Immat Gran (auto) 0.18 H K/mm3 (0.00-0.031) Absolute Neuts (auto) 14.3 H K/mm3 (1.3-6.7) Absolute Nucleated RBC 0.000 K/mm3 (0.0-0.012) Nucleated RBC % 0.0 % (0.0-0.2) Sodium 132 L mmol/L (137-145) Potassium 4.0 mmol/L (3.4-5.0) Chloride 101 mmol/L (98-107) Carbon Dioxide 25 mmol/L (22-30) Anion Gap 6 mmol/L (4-12) BUN 12 mg/dL (9-20) Creatinine 0.90 mg/dL (0.7-1.3) Estim Creat Clear Calc 91 ml/min Estimated GFR > 60 (59 - ) Glucose 194 H mg/dL (65-110) POC Capillary Glucose 213 H mg/dl 181 H mg/dl (65-105) (65-105) Calcium 8.6 mg/dL (8.4-10.2) Total Bilirubin 0.7 mg/dL (0.2-1.3) AST 26 U/L (17-59) ALT 18 U/L (6-50) Alkaline Phosphatase 99 U/L (38-126) Total Protein 7.0 g/dL (6.3-8.2) Albumin 3.2 L g/dL (3.5-5.1) Vancomycin Trough 7.8 L ug/mL (10.0-20.0) 06/25/24 06/25/24 07:51 12:04 WBC RBC Hgb Hct MCV MCH MCHC RDW Plt Count MPV Immature Gran % (Auto) Neut % (Auto) Lymph % (Auto) Chester % (Auto) Eos % (Auto) Baso % (Auto) Lymph # (Auto) Chester # (Auto) Eos # (Auto) Baso # (Auto) Abs Immat Gran (auto) Absolute Neuts (auto) Absolute Nucleated RBC Nucleated RBC % Sodium Potassium Chloride Carbon Dioxide Anion Gap BUN Creatinine Estim Creat Clear Calc Estimated GFR Glucose POC Capillary Glucose 197 H mg/dl 172 H mg/dl (65-105) (65-105) Calcium Total Bilirubin AST ALT Alkaline Phosphatase Total Protein Albumin Vancomycin Trough Patient hx anesthesia problems: none Family hx anesthesia problems: none Results Review: All pre-operati
[2024-06-25] MEDS: BUPIVACAINE/EPINEPHRINE 0.5% 50 ML VIAL 20 ML INFILTRATE (13:32)
--- NOTE | 2024-06-25 14:23 | W.PM.PROC2 ---
Procedure Note - Detailed Date of Procedure 06/25/24 Pre-op Diagnosis Necrotic Diabetic Toe Wounds/Sepsis Post-op Diagnosis Same Procedure Performed Right 2nd toe ray amputation, incision and drainage of right 1st toe abscess Surgeon Tevin Briscoe, DO Anesthesia General and Local (0.5% bupivacaine with epinephrine) Indications This is a 53-year-old man who presented to the emergency department with a necrotic right 2nd toe. This was showing signs of with gangrene and x-rays confirmed osteomyelitis involving the phalanx as well. The infection was spreading proximally onto the base of the toe and there was also some swelling and fluctuance to the right 1st toe. He was admitted and placed on broad-spectrum IV antibiotics. Discussed with patient treatment options and decision was made to proceed with right 2nd toe ray amputation and incision and drainage of right 1st toe abscess. Findings Right 2nd toe ray amputation was performed. The infection was predominantly within the right 2nd toe but also was progressing proximally on to the subcutaneous space within forefoot. A ray amputation was performed of the right 2nd toe and I transected the metatarsal just proximal to the metatarsal head. I also made an incision over the lateral surface of the right great toe and drained some of the infection involving the right great toe. There was also a lot of callus that was carefully peeled away to adequately visualized the skin around the toe and forefoot. Due to the ongoing infection, I placed a Barby drain within the subcutaneous space of the forefoot and partially closed the incision with 3-0 nylon simple interrupted sutures. The right 2nd toe was sent to the lab for pathology. Description of Procedure Procedure as well as risks, benefits, and alternatives were discussed with the patient. Written consent was obtained prior to procedure. Patient was brought back to surgical suite. He was placed supine on operating table. Time-out was done to confirm patient and procedure. He was then intubated by anesthesia department. His right foot was prepped and draped in sterile fashion using Betadine prep. 0.5% bupivacaine with epinephrine was infiltrated locally around the forefoot and toe. A racquet incision was made around the right 2nd toe using a 15 blade scalpel. Electrocautery was used for hemostasis and for dissection through the subcutaneous tissue. I dissected through the tendinous and ligamentous attachments down to the metatarsal head. I then dissected just proximal to the 2nd metatarsal head using electrocautery. I then used a bone elevator to free up the tissue around the metatarsal. A small Haslet saw was then used to transect the metatarsal bone just proximal to the metatarsal head. The remaining tendinous attachments were taken down using electrocautery. This freed up the toe completely and it was removed and sent the lab for pathology. The wound was then probed for any further areas of purulent fluid. There was some tunneling along subcutaneous space on the proximal dorsal surface of forefoot. This was then irrigated with sterile saline. No other abnormalities were identified. I then made an incision over the lateral surface of the right great toe using a 15 blade scalpel. A curette was then used to strip away some of the necrotic skin on the surface. No deeper areas of purulent fluid were identified. The callus around the great toe and forefoot the 1st and 2nd digits was carefully peeled away. No other significant abnormalities were seen. The wound was then irrigated 1 final time. Barby drain was then placed within the subcutaneous space of forefoot this was then secured in place using a 3-0 nylon drain stitch. I then partially closed the incision along the dorsum and plantar surface using 3-0 nylon simple interrupted sutures. This was left partially open to allow infection to continue to drain. Xeroform gauze was then applied followed
[2024-06-25 14:25] LABS: Glucose Point of Care 165 mg/dl (65-105)
[2024-06-25 16:31] LABS: Glucose Point of Care 139 mg/dl (65-105)
[2024-06-25] MEDS: LACTATED RINGERS 1,000 ML 100 ML IV CONT (16:47)
[2024-06-25] MEDS: SACCHAROMYCES BOULARDII 250 MG CAPSULE PO (16:50)
[2024-06-25] MEDS: VANCOMYCIN 2,000 MG/NS 500 ML 2,000 MG/500 ML BAG 200 MG IVPB (20:09)
[2024-06-25 20:32] LABS: Glucose Point of Care 194 mg/dl (65-105)
[2024-06-25] MEDS: INSULIN GLARGINE (*BKC) 100 UNITS/ML 8 UNITS SUB-Q (20:52)
[2024-06-26] MEDS: CEFEPIME 2 GM/NS 50 ML 2 GM/50 ML BAG IVPB ×2 (00:37→13:06)
[2024-06-26 00:53] VITALS: BP 162/77; PULSE 106; RESP 18; TEMP 36.9; O2SAT 98
[2024-06-26 04:10] VITALS: BP 150/61; PULSE 95; RESP 18; TEMP 36.8; O2SAT 97
[2024-06-26 05:13] LABS: Basophils Percent Auto 0.3 % (0.2-1.2); Eosinophils Percent Auto 0.3 % (0-4.4); Hematocrit 26.7 % (42.0-52.0); Hemoglobin 9.2 g/dL (14.0-18.0); Immature Granulocyte Absolute 0.15 K/mm3 (0.00-0.031); Lymphocytes Absolute Auto 1.36 K/mm3 (0.9-3.2); Lymphocytes Percent Auto 9.4 % (18.3-44.2); Mean Corpuscular HGB Conc 34.5 g/dl (32-36); Mean Corpuscular Hemoglobin 26.4 pg (26-34); Mean Corpuscular Volume 76.7 fl (80-100); Mean Platelet Volume 10.2 fl (7.4-10.4); Monocytes Absolute Auto 1.3 K/mm3 (0.1-0.6); Monocytes Percent Auto 8.9 % (2.6-8.5); Neutrophils Absolute Auto 11.6 K/mm3 (1.3-6.7); Neutrophils Percent Auto 80.1 % (45.5-73.1); Platelet Count Result 306 k/mm3 (150-375); Red Blood Count 3.48 M/mm3 (4.6-6.20); Red Cell Distribution Width 12.7 % (11.5-14.5); White Blood Count 14.5 K/mm3 (4.5-10.0)
[2024-06-26 05:20] LABS: Alanine Aminotransferase 18 U/L (6-50); Albumin Level 3.2 g/dL (3.5-5.1); Alkaline Phosphatase 112 U/L (38-126); Anion Gap 7 mmol/L (4-12); Aspartate Amino Transferase 21 U/L (17-59); Bilirubin,Total 0.6 mg/dL (0.2-1.3); Blood Urea Nitrogen 10 mg/dL (9-20); Calcium 8.6 mg/dL (8.4-10.2); Carbon Dioxide 26 mmol/L (22-30); Chloride 98 mmol/L (98-107); Estimated CRCL calculation 82 ml/min; Estimated Glomerular Filt Rate > 60; Glucose 175 mg/dL (65-110); Potassium 3.7 mmol/L (3.4-5.0); Sodium 131 mmol/L (137-145)
[2024-06-26] MEDS: metroNIDAZOLE 500 MG/ISO 100ML 500 MG/100 ML BAG 100 MG IVPB (06:23)
[2024-06-26 07:54] LABS: Glucose Point of Care 194 mg/dl (65-105)
--- NOTE | 2024-06-26 08:00 | P.PNIM_ITS ---
Progress Note: A&P Assessment and Plan (1) Sepsis: Qualifiers: Sepsis acute organ dysfunction status: unspecified Sepsis type: sepsis due to unspecified organism Qualified Code(s): A41.9 - Sepsis, unspecified o rganism Code(s): A41.9 - Sepsis, unspecified organism Status: Acute Assessment and Plan: 06/24/24: * Patient initially meeting sepsis criteria with WBC 24.9,Temp 101, HR 123, RR 21, NORMAN with creatinine 1.70. * After receiving 2L NS heart rate improved to 99, RR 16, temp 97.2, creatinine 1.20 * Right lower extremity CT showing osteomyelitis involving the 2nd proximal, middle, and distal phalanges * Initial white blood cell count 24.9, now down to 18.9 today * Creatinine 2.2 today * CRP 37.1 initially * Blood and urine cultures were obtained and pending * Continue vancomycin, Flagyl, cefepime * Will discontinue Clindamycin * Continue cardiac monitoring for now 06/25/24: * Blood culture showing no growth today on preliminary read. * Urine culture negative. * Continue vancomycin, Flagyl, cefepime * White blood cell count down to 17.4, creatinine 0.90 * We can go ahead and DC continuous mine production engineer 06/26/24: * Blood cultures still showing no growth on preliminary read * Urine culture was negative * Continue vancomycin, Flagyl, cefepime * White blood cell count continues to trend down currently 14.5 (2) Osteomyelitis of foot, right, acute: Code(s): M86.171 - Other acute osteomyelitis, right ankle and foot Status: Acute Assessment and Plan: 06/24/24: * Right foot x-ray showing soft tissue defect and soft tissue gas involving the 2nd digit * Soft tissue ultrasound of the right lower extremity shows an enlarged lymph node in the right upper thigh likely reactive * Right lower extremity CT showing osteomyelitis involving 2nd proximal, middle, and distal phalanges * Continue pain control * General surgery consulted * Continue NPO status for now * Continue IV antibiotics * Blood sugar controlled 06/25/24: * Plan for surgery today with General surgery * Remain NPO * Continue IV fluids for now * Continue IV antibiotics * Continue pain control 06/26/24: * Patient is postop day 1 from a right 2nd toe amputation, incision and drainage of right 1st toe abscess * Continue IV antibiotics * DC IV fluids * Increase diet back to regular diabetic diet * Continue pain control * General surgery following (3) Diabetic wet gangrene of the foot: Code(s): E11.52 - Type 2 diabetes mellitus with diabetic peripheral angiopathy with gangrene Status: Acute Assessment and Plan: See above (4) Uncontrolled diabetes mellitus: Qualifiers: Diabetes mellitus type: type 2 Glycemic state: with hyperglycemia Qualified Code(s): E11.65 - Type 2 diabetes mellitus with hyperglycemia Status: Acute Assessment and Plan: 06/24/24: * Blood sugars ranging 226-300 * Hgb A1C 10.8 * Accu checks AC/HS * Mid dose SSI ordered * hypoglycemic protocol in place * Diabetic diet ordered * Patient not on any home medication * wealth management director consult * Dietitian consult 06/25/24: * Blood sugars ranging 181-197 * Will add Lantus 8 units tonight 06/26/24: * Blood sugars ranging 108 to 150 * Continue with current treatment plan (5) Elevated blood pressure reading: Code(s): R03.0 - Elevated blood-pressure reading, without diagnosis of hypertension Status: Acute Assessment and Plan: 06/24/24: * Blood pressure ran
--- NOTE | 2024-06-26 08:00 | PM.IMPN ---
Progress Note: A&P Assessment and Plan (1) Sepsis: Qualifiers: Sepsis acute organ dysfunction status: unspecified Sepsis type: sepsis due to unspecified organism Qualified Code(s): A41.9 - Sepsis, unspecified organism Code(s): A41.9 - Sepsis, unspecified organism Status: Acute Assessment and Plan: 06/24/24: Patient initially meeting sepsis criteria with WBC 24.9,Temp 101, HR 123, RR 21, NORMAN with creatinine 1.70. After receiving 2L NS heart rate improved to 99, RR 16, temp 97.2, creatinine 1.[address] showing osteomyelitis involving the 2nd proximal, middle, and distal phalanges Initial white blood cell count 24.9, now down to 18.9 today Creatinine 2.2 today CRP 37.1 initially Blood and urine cultures were obtained and pending Continue vancomycin, Flagyl, cefepime Will discontinue Clindamycin Continue cardiac monitoring for now 06/25/24: Blood culture showing no growth today on preliminary read. Urine culture negative. Continue vancomycin, Flagyl, cefepime White blood cell count down to 17.4, creatinine 0.90 We can go ahead and DC continuous radiographer cardiac catheterization 06/26/24: Blood cultures still showing no growth on preliminary read Urine culture was negative Continue vancomycin, Flagyl, cefepime White blood cell count continues to trend down currently 14.5 (2) Osteomyelitis of foot, right, acute: Code(s): M86.171 - Other acute osteomyelitis, right ankle and foot Status: Acute Assessment and Plan: 06/24/24: Right foot x-ray showing soft tissue defect and soft tissue gas involving the 2nd digit Soft tissue ultrasound of the right lower extremity shows an enlarged lymph node in the right upper thigh likely reactive Right lower extremity CT showing osteomyelitis involving 2nd proximal, middle, and distal phalanges Continue pain control General surgery consulted Continue NPO status for now Continue IV antibiotics Blood sugar controlled 06/25/24: Plan for surgery today with General surgery Remain NPO Continue IV fluids for now Continue IV antibiotics Continue pain control 06/26/24: Patient is postop day 1 from a right 2nd toe amputation, incision and drainage of right 1st toe abscess Continue IV antibiotics DC IV fluids Increase diet back to regular diabetic diet Continue pain control General surgery following (3) Diabetic wet gangrene of the foot: Code(s): E11.52 - Type 2 diabetes mellitus with diabetic peripheral angiopathy with gangrene Status: Acute Assessment and Plan: See above (4) Uncontrolled diabetes mellitus: Qualifiers: Diabetes mellitus type: type 2 Glycemic state: with hyperglycemia Qualified Code(s): E11.65 - Type 2 diabetes mellitus with hyperglycemia Status: Acute Assessment and Plan: 06/24/24: Blood sugars ranging 226-300 Hgb A1C 10.8 Accu checks AC/HS Mid dose SSI ordered hypoglycemic protocol in place Diabetic diet ordered Patient not on any home medication certified diabetes educator consult Dietitian consult 06/25/24: Blood sugars ranging 181-197 Will add Lantus 8 units tonight 06/26/24: Blood sugars ranging 108 to 150 Continue with current treatment plan (5) Elevated blood pressure reading: Code(s): R03.0 - Elevated blood-pressure reading, without diagnosis of hypertension Status: Acute Assessment and Plan: 06/24/24: Blood pressure ranging 127/89-160/86 Patient currently does not take any home medications hypertension with diabetes education. Patient started on amlodipine 5 mg daily 06/25/24: Continue amlodipine 06/26/24: Blood pressures ranging 106/41 to 158/78 Continue amlodipine (6) Acute kidney injury: Code(s): N17.9 - Acute kidney failure, unspecified Status: Acute Assessment and Plan: 06/24/24: Initial creatinine 1.70 After 2 L of normal saline creatinine corrected to 1.20
[2024-06-26 09:26] VITALS: BP 158/78; PULSE 100; RESP 16; TEMP 36.9; O2SAT 98
[2024-06-26] MEDS: amLODIPine BESYLATE 5 MG TABLET PO (09:30)
[2024-06-26] MEDS: SACCHAROMYCES BOULARDII 250 MG CAPSULE PO ×3 (09:30→17:37)
[2024-06-26] MEDS: ENOXAPARIN 40 MG/0.4 ML SYRINGE SUB-Q (09:30)
[2024-06-26] MEDS: VANCOMYCIN 2,000 MG/NS 500 ML 2,000 MG/500 ML BAG 200 MG IVPB ×2 (09:30→21:14)
[2024-06-26] MEDS: EMPAGLIFLOZIN 10 MG TABLET PO (09:30)
[2024-06-26 11:30] LABS: Glucose Point of Care 150 mg/dl (65-105)
--- NOTE | 2024-06-26 11:41 | WPDANESPN ---
Anes - Prog Note Post-Op Date/Time: 06/26/24 11:41 Cardiovascular status: normal Respiratory status: normal Airway patency: baseline Mental status: baseline Post-Op hydration status: normal Vital Signs: Last Vital Signs Temp 36.9 C 06/26/24 09:26 Pulse 100 06/26/24 09:26 Resp 16 06/26/24 09:26 BP 158/78 H 06/26/24 09:26 Pulse Ox 98 06/26/24 09:26 O2 Del Method Room Air 06/26/24 09:30 O2 Flow Rate 10 06/25/24 14:45 Pain Score (VAS): 2 I/O: Intake & Output 06/25/24 06/26/24 06/26/24 23:59 07:59 15:59 Intake Total 2200 700 480 Output Total 1700 Balance 2200 -1000 480 Laboratory Tests 06/26/24 04:41 06/26/24 04:41 06/25/24 06/25/24 06/25/24 12:04 14:22 16:27 WBC RBC Hgb Hct MCV MCH MCHC RDW Plt Count MPV Immature Gran % (Auto) Neut % (Auto) Lymph % (Auto) [place] % (Auto) Eos % (Auto) Baso % (Auto) Lymph # (Auto) [place] # (Auto) Eos # (Auto) Baso # (Auto) Abs Immat Gran (auto) Absolute Neuts (auto) Absolute Nucleated RBC Nucleated RBC % Sodium Potassium Chloride Carbon Dioxide Anion Gap BUN Creatinine Estim Creat Clear Calc Estimated GFR Glucose POC Capillary Glucose 172 H 165 H 139 H Calcium Total Bilirubin AST ALT Alkaline Phosphatase Total Protein Albumin 06/25/24 06/26/24 06/26/24 20:18 04:41 07:44 WBC 14.5 H RBC 3.48 L Hgb 9.2 L Hct 26.7 L MCV 76.7 L MCH 26.4 MCHC 34.5 RDW 12.7 Plt Count 306 MPV 10.2 Immature Gran % (Auto) 1.0 H Neut % (Auto) 80.1 H Lymph % (Auto) 9.4 L [place] % (Auto) 8.9 H Eos % (Auto) 0.3 Baso % (Auto) 0.3 Lymph # (Auto) 1.36 [place] # (Auto) 1.3 H Eos # (Auto) 0.0 Baso # (Auto) 0.0 Abs Immat Gran (auto) 0.15 H Absolute Neuts (auto) 11.6 H Absolute Nucleated RBC 0.000 Nucleated RBC % 0.0 Sodium 131 L Potassium 3.7 Chloride 98 Carbon Dioxide 26 Anion Gap 7 BUN 10 Creatinine 1.00 Estim Creat Clear Calc 82 Estimated GFR > 60 Glucose 175 H POC Capillary Glucose 194 H 194 H Calcium 8.6 Total Bilirubin 0.6 AST 21 ALT 18 Alkaline Phosphatase 112 Total Protein 7.0 Albumin 3.2 L 06/26/24 11:27 WBC RBC Hgb Hct MCV MCH MCHC RDW Plt Count MPV Immature Gran % (Auto) Neut % (Auto) Lymph % (Auto) [place] % (Auto) Eos % (Auto) Baso % (Auto) Lymph # (Auto) [place] # (Auto) Eos # (Auto) Baso # (Auto) Abs Immat Gran (auto) Absolute Neuts (auto) Absolute Nucleated RBC Nucleated RBC % Sodium Potassium Chloride Carbon Dioxide Anion Gap BUN Creatinine Estim Creat Clear Calc Estimated GFR Glucose POC Capillary Glucose 150 H Calcium Total Bilirubin AST ALT Alkaline Phosphatase Total Protein Albumin Microbiology 06/23/24 23:40 Urine Clean Catch Urine Culture - Final Post-procedural complaints: none Patient Feedback: Patient satisfied with anesthetic care.
[2024-06-26] MEDS: metroNIDAZOLE 500 MG TABLET PO ×2 (13:06→21:13)
--- NOTE | 2024-06-26 13:18 | PM.PNGS ---
Progress Note: A&P Assessment and Plan (1) Gangrene of toe of right foot: Code(s): I96 - Gangrene, not elsewhere classified Status: Acute Assessment and Plan: Continue local wound care. Apply silver gel to great toe wounds, followed by Xerofoam gauze, 4x4s, and Kerlix wrap. Continue antibiotics Non-weight bearing, PT eval for crutch use and ambulation. (2) Osteomyelitis of foot, right, acute: Code(s): M86.171 - Other acute osteomyelitis, right ankle and foot Status: Acute (3) Uncontrolled diabetes mellitus: Qualifiers: Diabetes mellitus type: type 2 Glycemic state: with hyperglycemia Qualified Code(s): E11.65 - Type 2 diabetes mellitus with hyperglycemia Status: Acute Subjective Subjective Date/Time Seen: 06/26/24 13:18 Interval history: Doing well on POD#1. Pain controlled. No fevers. Exam Extrem: Other: Right foot dressing removed. Serous drainage with scant purulence. Bar[place] drain in place. Minimal erythema along incision. Great toe with yellow exudate at wound base along medial and lateral side. No signs of necrosis. Objective Data Vital Signs Vital Signs: Vital Signs - 24 hr 06/25/24 14:16 06/25/24 14:30 06/25/24 14:45 Temperature 97.2 F L Pulse Rate 90 88 92 Respiratory Rate 15 15 16 Blood Pressure 97/66 L 95/67 L 110/70 Pulse Oximetry 100 100 100 Oxygen Delivery Simple Face Mask Simple Face Mask Simple Face Mask Oxygen Flow Rate 10 10 10 06/25/24 15:00 06/25/24 15:15 06/25/24 15:30 Temperature Pulse Rate 94 93 Respiratory Rate 14 14 14 Blood Pressure 108/69 108/72 117/74 Pulse Oximetry 97 97 97 Oxygen Delivery Room Air Room Air Room Air Oxygen Flow Rate 06/25/24 15:41 06/25/24 16:07 06/25/24 16:26 Temperature 98.2 F 97.1 F L 98.0 F Pulse Rate 94 93 95 Respiratory Rate 14 16 16 Blood Pressure 129/74 141/76 H 127/71 Pulse Oximetry 97 96 97 Oxygen Delivery Oxygen Flow Rate 06/25/24 17:26 06/25/24 21:26 06/26/24 00:53 Temperature 97.6 F 99.3 F 98.4 F Pulse Rate 95 100 106 H Respiratory Rate 16 18 18 Blood Pressure 142/79 H 142/65 H 162/77 H Pulse Oximetry 97 97 98 Oxygen Delivery Oxygen Flow Rate 06/26/24 04:10 06/26/24 09:26 06/26/24 09:30 Temperature 98.3 F 98.4 F Pulse Rate 95 100 Respiratory Rate 18 16 Blood Pressure 150/61 H 158/78 H Pulse Oximetry 97 98 Oxygen Delivery Room Air Oxygen Flow Rate Intake/Output Intake/Output: Intake & Output 06/23/24 06/24/24 06/25/24 06/26/24 23:59 23:59 23:59 23:59 Intake Total 2700 2000 3180 1730 Output Total 200 1700 2400 1700 Balance 2500 300 780 30 Meds/Results Medications: Active Medications Generic Name Dose Route Start Last Admin Trade Name Freq PRN Reason Stop Dose Admin Acetaminophen 500 mg 06/25/24 15:41 Acetaminophen 500 Mg Tablet PO Q6H PRN Pain Rated 1-3 Hydrocodone Bitart/Acetaminophen 1 tab 06/25/24 15:41 Hydrocodone/Acetaminophen (*Crx) 5-325 Mg Tablet PO Q4H PRN Pain Rated 4-6 Hydrocodone Bitart/Acetaminophen 1 tab 06/25/24 15:41 Hydrocodone/Acetaminophen (*Crx) 7.5-325 Mg Tablet PO Q4H PRN Pain Rated 7-10 Amlodipine Besylate 5 mg 06/24/24 09:00 06/26/24 09:30 Amlodipine Besylate 5 Mg Tablet PO 5 mg DAILY MALINI Administration Dextrose 12.5 gm 06/23/24 23:05 Dextrose 50% 25 Gm/50 Ml Syringe IV PUSH PRN PRN Hypoglycemia Protocol Empagliflozin 10 mg 06/25/24 09:00 06/26/24 09:30 Empagliflozin 10 Mg Tablet PO 10 mg DAILY MALINI Administration Enoxaparin Sodium 40 mg 06/26/24 09:00 06/26/24 09:30 Enoxaparin 40 Mg/0.4 Ml Syringe SUB-Q 40 mg DAILY MALINI Administration Glucagon 1 mg 06/23/24 23:05 Glucagon For Inj 1 Mg Vial IM PRN PRN Hypoglycemia Protocol Glucose 15 gm 06/23/24 23:05 Glucose Oral Gel 15 Gm Of Glucse In 37.5 Gm Tube PO PRN PRN Hypoglycemia Pr
[2024-06-26 13:26] VITALS: BP 106/41; PULSE 98; RESP 18; TEMP 37.1; O2SAT 100
[2024-06-26 15:35] VITALS: BMI 24.6
[2024-06-26 16:31] LABS: Glucose Point of Care 108 mg/dl (65-105)
[2024-06-26 17:26] VITALS: BP 156/79; PULSE 98; RESP 16; TEMP 37.1; O2SAT 98
[2024-06-26 19:55] LABS: Vancomycin Trough 18.2 ug/mL (10.0-20.0)
[2024-06-26 20:46] LABS: Glucose Point of Care 97 mg/dl (65-105)
[2024-06-26 21:08] VITALS: BP 157/83; PULSE 101; RESP 18; TEMP 36.6; O2SAT 98
[2024-06-27] MEDS: CEFEPIME 2 GM/NS 50 ML 2 GM/50 ML BAG IVPB ×2 (01:17→13:39)
[2024-06-27 05:53] VITALS: BP 144/81; PULSE 97; RESP 18; TEMP 36.2; O2SAT 99
[2024-06-27 06:08] LABS: Basophils Absolute Auto 0.1 K/mm3 (0.0-0.1); Basophils Percent Auto 0.3 % (0.2-1.2); Eosinophils Absolute Auto 0.1 K/mm3 (0-0.3); Eosinophils Percent Auto 0.8 % (0-4.4); Hematocrit 26.6 % (42.0-52.0); Hemoglobin 9.1 g/dL (14.0-18.0); Immature Granulocyte Absolute 0.16 K/mm3 (0.00-0.031); Lymphocytes Absolute Auto 1.54 K/mm3 (0.9-3.2); Lymphocytes Percent Auto 9.8 % (18.3-44.2); Mean Corpuscular HGB Conc 34.2 g/dl (32-36); Mean Corpuscular Hemoglobin 26.3 pg (26-34); Mean Corpuscular Volume 76.9 fl (80-100); Mean Platelet Volume 9.7 fl (7.4-10.4); Monocytes Absolute Auto 1.5 K/mm3 (0.1-0.6); Monocytes Percent Auto 9.3 % (2.6-8.5); Neutrophils Absolute Auto 12.3 K/mm3 (1.3-6.7); Neutrophils Percent Auto 78.8 % (45.5-73.1); Platelet Count Result 367 k/mm3 (150-375); Red Blood Count 3.46 M/mm3 (4.6-6.20); Red Cell Distribution Width 12.8 % (11.5-14.5); White Blood Count 15.7 K/mm3 (4.5-10.0)
[2024-06-27 06:23] LABS: Alanine Aminotransferase 24 U/L (6-50); Albumin Level 3.2 g/dL (3.5-5.1); Alkaline Phosphatase 132 U/L (38-126); Anion Gap 9 mmol/L (4-12); Aspartate Amino Transferase 34 U/L (17-59); Bilirubin,Total 0.6 mg/dL (0.2-1.3); Blood Urea Nitrogen 11 mg/dL (9-20); Calcium 8.9 mg/dL (8.4-10.2); Carbon Dioxide 27 mmol/L (22-30); Chloride 97 mmol/L (98-107); Estimated CRCL calculation 91 ml/min; Estimated Glomerular Filt Rate > 60; Glucose 93 mg/dL (65-110); Potassium 3.8 mmol/L (3.4-5.0); Sodium 133 mmol/L (137-145)
[2024-06-27] MEDS: metroNIDAZOLE 500 MG TABLET PO ×3 (06:27→20:55)
--- NOTE | 2024-06-27 06:51 | P.PNIM_ITS ---
Progress Note: A&P Assessment and Plan (1) Sepsis: Qualifiers: Sepsis acute organ dysfunction status: unspecified Sepsis type: sepsis due to unspecified organism Qualified Code(s): A41.9 - Sepsis, unspecified o rganism Code(s): A41.9 - Sepsis, unspecified organism Status: Acute Assessment and Plan: 06/24/24: * Patient initially meeting sepsis criteria with WBC 24.9,Temp 101, HR 123, RR 21, NORMAN with creatinine 1.70. * After receiving 2L NS heart rate improved to 99, RR 16, temp 97.2, creatinine 1.20 * Right lower extremity CT showing osteomyelitis involving the 2nd proximal, middle, and distal phalanges * Initial white blood cell count 24.9, now down to 18.9 today * Creatinine 2.2 today * CRP 37.1 initially * Blood and urine cultures were obtained and pending * Continue vancomycin, Flagyl, cefepime * Will discontinue Clindamycin * Continue cardiac monitoring for now 06/25/24: * Blood culture showing no growth today on preliminary read. * Urine culture negative. * Continue vancomycin, Flagyl, cefepime * White blood cell count down to 17.4, creatinine 0.90 * We can go ahead and DC continuous monitoring manager 06/26/24: * Blood cultures still showing no growth on preliminary read * Urine culture was negative * Continue vancomycin, Flagyl, cefepime * White blood cell count continues to trend down currently 14.5 06/27/24: * Blood culture still showing no growth on preliminary read * Continue vancomycin, Flagyl, cefepime * White blood cell count 15.7 * Continue wound care (2) Osteomyelitis of foot, right, acute: Code(s): M86.171 - Other acute osteomyelitis, right ankle and foot Status: Acute Assessment and Plan: 06/24/24: * Right foot x-ray showing soft tissue defect and soft tissue gas involving the 2nd digit * Soft tissue ultrasound of the right lower extremity shows an enlarged lymph node in the right upper thigh likely reactive * Right lower extremity CT showing osteomyelitis involving 2nd proximal, middle, and distal phalanges * Continue pain control * General surgery consulted * Continue NPO status for now * Continue IV antibiotics * Blood sugar controlled 06/25/24: * Plan for surgery today with General surgery * Remain NPO * Continue IV fluids for now * Continue IV antibiotics * Continue pain control 06/26/24: * Patient is postop day 1 from a right 2nd toe amputation, incision and drainage of right 1st toe abscess * Continue IV antibiotics * DC IV fluids * Increase diet back to regular diabetic diet * Continue pain control * General surgery following 06/27/24: * Patient is postop day 2 * Continue IV antibiotics * Advanced diet as tolerated to a regular diabetic diet * Continue glycemic control * Continue pain control * General surgery following * Blood cultures showing no growth on preliminary read (3) Diabetic wet gangrene of the foot: Code(s): E11.52 - Type 2 diabetes mellitus with diabetic peripheral angiopathy with gangrene Status: Acute Assessment and Plan: See above (4) Uncontrolled diabetes mellitus: Qualifiers: Diabetes mellitus type: type 2 Glycemic state: with hyperglycemia Qualified Code(s): E11.65 - Type 2 diabetes mellitus with hyperglycemia Status: Acute Assessment and Plan: 06/24/24: * Blood sugars ranging 226-300 * Hgb A1C 10.8 * Accu checks AC/HS * Mid dose SSI ordered * hypoglycemic protocol in place * Diabetic diet ordered * Patient not on any home medication *
--- NOTE | 2024-06-27 06:51 | PM.IMPN ---
Progress Note: A&P Assessment and Plan (1) Sepsis: Qualifiers: Sepsis acute organ dysfunction status: unspecified Sepsis type: sepsis due to unspecified organism Qualified Code(s): A41.9 - Sepsis, unspecified organism Code(s): A41.9 - Sepsis, unspecified organism Status: Acute Assessment and Plan: 06/24/24: Patient initially meeting sepsis criteria with WBC 24.9,Temp 101, HR 123, RR 21, NORMAN with creatinine 1.70. After receiving 2L NS heart rate improved to 99, RR 16, temp 97.2, creatinine 1.[address] showing osteomyelitis involving the 2nd proximal, middle, and distal phalanges Initial white blood cell count 24.9, now down to 18.9 today Creatinine 2.2 today CRP 37.1 initially Blood and urine cultures were obtained and pending Continue vancomycin, Flagyl, cefepime Will discontinue Clindamycin Continue cardiac monitoring for now 06/25/24: Blood culture showing no growth today on preliminary read. Urine culture negative. Continue vancomycin, Flagyl, cefepime White blood cell count down to 17.4, creatinine 0.90 We can go ahead and DC continuous potato peeler 06/26/24: Blood cultures still showing no growth on preliminary read Urine culture was negative Continue vancomycin, Flagyl, cefepime White blood cell count continues to trend down currently 14.5 06/27/24: Blood culture still showing no growth on preliminary read Continue vancomycin, Flagyl, cefepime White blood cell count 15.7 Continue wound care (2) Osteomyelitis of foot, right, acute: Code(s): M86.171 - Other acute osteomyelitis, right ankle and foot Status: Acute Assessment and Plan: 06/24/24: Right foot x-ray showing soft tissue defect and soft tissue gas involving the 2nd digit Soft tissue ultrasound of the right lower extremity shows an enlarged lymph node in the right upper thigh likely reactive Right lower extremity CT showing osteomyelitis involving 2nd proximal, middle, and distal phalanges Continue pain control General surgery consulted Continue NPO status for now Continue IV antibiotics Blood sugar controlled 06/25/24: Plan for surgery today with General surgery Remain NPO Continue IV fluids for now Continue IV antibiotics Continue pain control 06/26/24: Patient is postop day 1 from a right 2nd toe amputation, incision and drainage of right 1st toe abscess Continue IV antibiotics DC IV fluids Increase diet back to regular diabetic diet Continue pain control General surgery following 06/27/24: Patient is postop day 2 Continue IV antibiotics Advanced diet as tolerated to a regular diabetic diet Continue glycemic control Continue pain control General surgery following Blood cultures showing no growth on preliminary read (3) Diabetic wet gangrene of the foot: Code(s): E11.52 - Type 2 diabetes mellitus with diabetic peripheral angiopathy with gangrene Status: Acute Assessment and Plan: See above (4) Uncontrolled diabetes mellitus: Qualifiers: Diabetes mellitus type: type 2 Glycemic state: with hyperglycemia Qualified Code(s): E11.65 - Type 2 diabetes mellitus with hyperglycemia Status: Acute Assessment and Plan: 06/24/24: Blood sugars ranging 226-300 Hgb A1C 10.8 Accu checks AC/HS Mid dose SSI ordered hypoglycemic protocol in place Diabetic diet ordered Patient not on any home medication adaptive physical educator consult Dietitian consult 06/25/24: Blood sugars ranging 181-197 Will add Lantus 8 units tonight 06/26/24: Blood sugars ranging 108 to 150 Continue with current treatment plan 06/27/24: Blood sugars ranging 93-108 Hold Jardiance for now (5) Elevated blood pressure reading: Code(s): R03.0 - Elevated blood-pressure reading, without diagnosis of hypertension Status: Acute Assessment and Plan: 06/24/24: Blood pressure ranging 127/89-16
[2024-06-27 08:08] LABS: Glucose Point of Care 89 mg/dl (65-105)
[2024-06-27 09:38] VITALS: BP 146/81; PULSE 98
[2024-06-27] MEDS: ENOXAPARIN 40 MG/0.4 ML SYRINGE SUB-Q (09:39)
[2024-06-27] MEDS: SACCHAROMYCES BOULARDII 250 MG CAPSULE PO ×3 (09:39→17:53)
[2024-06-27] MEDS: hydroCHLOROthiazide 6.25 MG TABLET PO (09:39)
[2024-06-27] MEDS: VANCOMYCIN 2,000 MG/NS 500 ML 2,000 MG/500 ML BAG 200 MG IVPB ×2 (09:39→20:55)
[2024-06-27] MEDS: amLODIPine BESYLATE 5 MG TABLET PO (09:39)
[2024-06-27 12:03] LABS: Glucose Point of Care 84 mg/dl (65-105)
--- NOTE | 2024-06-27 14:08 | PM.PNGS ---
Progress Note: A&P Assessment and Plan (1) Gangrene of toe of right foot: Code(s): I96 - Gangrene, not elsewhere classified Status: Acute Assessment and Plan: Amputation looked wound looks good. Patient has little sensation in the foot so no discomfort. Continue silver gel to open area 1st and 3rd toes. Continue Xeroform gauze to wound. Wound redressed and doing well. (2) Uncontrolled diabetes mellitus: Qualifiers: Diabetes mellitus type: type 2 Glycemic state: with hyperglycemia Qualified Code(s): E11.65 - Type 2 diabetes mellitus with hyperglycemia Status: Acute Assessment and Plan: Blood sugars improving steadily since admission. Subjective Subjective Date/Time Seen: 06/27/24 14:08 Post Op day: 2 Patient reports: no new complaints Exam Extrem: Right lower extremity: foot ([place] in place, wound sutured closed, no purulent drainage, doing well) Objective Data Vital Signs Vital Signs: Vital Signs - 24 hr 06/26/24 17:26 06/26/24 21:08 06/26/24 20:00 Temperature 37.1 C 36.6 C Pulse Rate 98 101 H Respiratory Rate 16 18 Blood Pressure 156/79 H 157/83 H Pulse Oximetry 98 98 Oxygen Delivery Room Air 06/27/24 05:53 06/27/24 09:38 06/27/24 09:45 Temperature 36.2 C L Pulse Rate 97 98 Respiratory Rate 18 Blood Pressure 144/81 H 146/81 H Pulse Oximetry 99 Oxygen Delivery Room Air Intake/Output Intake/Output: Intake & Output 06/24/24 06/25/24 06/26/24 06/27/24 23:59 23:59 23:59 23:59 Intake Total 1999 3180 2280 950 Output Total 1700 2400 1700 700 Balance 300 780 580 250 Meds/Results Medications: Active Medications Generic Name Dose Route Start Last Admin Trade Name Freq PRN Reason Stop Dose Admin Acetaminophen 500 mg 06/25/24 15:41 Acetaminophen 500 Mg Tablet PO Q6H PRN Pain Rated 1-3 Hydrocodone Bitart/Acetaminophen 1 tab 06/25/24 15:41 Hydrocodone/Acetaminophen (*Crx) 5-325 Mg Tablet PO Q4H PRN Pain Rated 4-6 Hydrocodone Bitart/Acetaminophen 1 tab 06/25/24 15:41 Hydrocodone/Acetaminophen (*Crx) 7.5-325 Mg Tablet PO Q4H PRN Pain Rated 7-10 Amlodipine Besylate 5 mg 06/24/24 09:00 06/27/24 09:39 Amlodipine Besylate 5 Mg Tablet PO 5 mg DAILY MALINI Administration Dextrose 12.5 gm 06/23/24 23:05 Dextrose 50% 25 Gm/50 Ml Syringe IV PUSH PRN PRN Hypoglycemia Protocol Empagliflozin 10 mg 06/25/24 09:00 06/26/24 09:30 Empagliflozin 10 Mg Tablet PO 10 mg DAILY MALINI Administration Enoxaparin Sodium 40 mg 06/26/24 09:00 06/27/24 09:39 Enoxaparin 40 Mg/0.4 Ml Syringe SUB-Q 40 mg DAILY MALINI Administration Glucagon 1 mg 06/23/24 23:05 Glucagon For Inj 1 Mg Vial IM PRN PRN Hypoglycemia Protocol Glucose 15 gm 06/23/24 23:05 Glucose Oral Gel 15 Gm Of Glucse In 37.5 Gm Tube PO PRN PRN Hypoglycemia Protocol Hydrochlorothiazide 6.25 mg 06/27/24 09:00 06/27/24 09:39 Hydrochlorothiazide 6.25 Mg Tablet PO 6.25 mg QAM MALINI Administration Dextrose 1,000 mls @ 100 mls/hr 06/23/24 23:05 Dextrose 5% 1,000 Ml IVPB PRN PRN Hypoglycemia Protocol Cefepime HCl 2 gm in 50 mls @ 100 mls/hr 06/24/24 13:00 06/27/24 13:39 Maxipime 2 Gm/Ns 50 Ml IVPB 100 mls/hr Q12H MALINI Administration Vancomycin HCl 2,000 mg in 500 mls @ 250 mls/hr 06/26/24 22:00 06/27/24 12:09 Vancomycin 2,000 Mg/Ns 500 Ml IVPB Infused Q12H MALINI Infusion Insulin Aspart 3 - 6 units 06/24/24 08:00 06/27/24 12:28 Insulin Aspart (*Bkc) 100 Units/Ml SUB-Q Not Given TIDWM [facility] Protocol Insulin Aspart 1 - 3 units 06/24/24 21:00 06/26/24 21:36 Insulin Aspart (*Bkc) 100 Units/Ml SUB-Q Not Given HS [facility] Protocol Insulin Glargine 8 units 06/25/24 21:00 06/26/24 21:36 Insulin Glargine (*Bkc) 100 Units/Ml SUB-Q Not Given HS [facility] Metronidazole 500 mg 06/26/24 14:
[2024-06-27 15:07] VITALS: BP 151/77; PULSE 92; RESP 28; TEMP 36.3; O2SAT 100
[2024-06-27 16:44] LABS: Glucose Point of Care 94 mg/dl (65-105)
[2024-06-27 18:48] VITALS: RESP 20; O2SAT 96
[2024-06-27 19:57] LABS: Glucose Point of Care 132 mg/dl (65-105)
[2024-06-27] MEDS: INSULIN GLARGINE (*BKC) 100 UNITS/ML 8 UNITS SUB-Q (20:55)
[2024-06-28] MEDS: CEFEPIME 2 GM/NS 50 ML 2 GM/50 ML BAG IVPB ×2 (00:58→12:36)
[2024-06-28 06:07] LABS: Basophils Absolute Auto 0.1 K/mm3 (0.0-0.1); Basophils Percent Auto 0.3 % (0.2-1.2); Eosinophils Absolute Auto 0.2 K/mm3 (0-0.3); Eosinophils Percent Auto 1.2 % (0-4.4); Hematocrit 27.3 % (42.0-52.0); Hemoglobin 9.4 g/dL (14.0-18.0); Immature Granulocyte Percent A 1.4 % (0-0.5); Lymphocytes Absolute Auto 1.53 K/mm3 (0.9-3.2); Lymphocytes Percent Auto 10.4 % (18.3-44.2); Mean Corpuscular HGB Conc 34.4 g/dl (32-36); Mean Corpuscular Hemoglobin 26.3 pg (26-34); Mean Corpuscular Volume 76.3 fl (80-100); Mean Platelet Volume 9.7 fl (7.4-10.4); Monocytes Absolute Auto 1.6 K/mm3 (0.1-0.6); Monocytes Percent Auto 10.8 % (2.6-8.5); Neutrophils Absolute Auto 11.2 K/mm3 (1.3-6.7); Neutrophils Percent Auto 75.9 % (45.5-73.1); Platelet Count Result 414 k/mm3 (150-375); Red Blood Count 3.58 M/mm3 (4.6-6.20); Red Cell Distribution Width 12.6 % (11.5-14.5); White Blood Count 14.8 K/mm3 (4.5-10.0)
[2024-06-28] MEDS: metroNIDAZOLE 500 MG TABLET PO ×3 (06:16→20:33)
[2024-06-28 06:21] LABS: Alanine Aminotransferase 27 U/L (6-50); Albumin Level 3.2 g/dL (3.5-5.1); Alkaline Phosphatase 115 U/L (38-126); Anion Gap 7 mmol/L (4-12); Aspartate Amino Transferase 38 U/L (17-59); Bilirubin,Total 0.5 mg/dL (0.2-1.3); Blood Urea Nitrogen 12 mg/dL (9-20); Calcium 8.8 mg/dL (8.4-10.2); Carbon Dioxide 28 mmol/L (22-30); Chloride 96 mmol/L (98-107); Estimated CRCL calculation 91 ml/min; Estimated Glomerular Filt Rate > 60; Glucose 112 mg/dL (65-110); Potassium 3.4 mmol/L (3.4-5.0); Sodium 131 mmol/L (137-145)
[2024-06-28 06:39] VITALS: BP 151/80; PULSE 93; RESP 18; TEMP 36.9; O2SAT 99
[2024-06-28 07:48] LABS: Glucose Point of Care 122 mg/dl (65-105)
[2024-06-28 09:18] VITALS: BP 157/74; PULSE 95; RESP 16; TEMP 36.3; O2SAT 100
[2024-06-28] MEDS: hydroCHLOROthiazide 6.25 MG TABLET PO (09:20)
[2024-06-28] MEDS: amLODIPine BESYLATE 5 MG TABLET PO (09:20)
[2024-06-28] MEDS: SACCHAROMYCES BOULARDII 250 MG CAPSULE PO ×3 (09:20→17:13)
[2024-06-28] MEDS: ENOXAPARIN 40 MG/0.4 ML SYRINGE SUB-Q (09:20)
[2024-06-28] MEDS: VANCOMYCIN 2,000 MG/NS 500 ML 2,000 MG/500 ML BAG 250 MG IVPB (09:24)
--- NOTE | 2024-06-28 10:25 | P.PNIM_ITS ---
Progress Note: A&P Assessment and Plan (1) Sepsis: Qualifiers: Sepsis acute organ dysfunction status: unspecified Sepsis type: sepsis due to unspecified organism Qualified Code(s): A41.9 - Sepsis, unspecified o rganism Code(s): A41.9 - Sepsis, unspecified organism Status: Acute Assessment and Plan: 06/24/24: * Patient initially meeting sepsis criteria with WBC 24.9,Temp 101, HR 123, RR 21, NORMAN with creatinine 1.70. * After receiving 2L NS heart rate improved to 99, RR 16, temp 97.2, creatinine 1.20 * Right lower extremity CT showing osteomyelitis involving the 2nd proximal, middle, and distal phalanges * Initial white blood cell count 24.9, now down to 18.9 today * Creatinine 2.2 today * CRP 37.1 initially * Blood and urine cultures were obtained and pending * Continue vancomycin, Flagyl, cefepime * Will discontinue Clindamycin * Continue cardiac monitoring for now 06/25/24: * Blood culture showing no growth today on preliminary read. * Urine culture negative. * Continue vancomycin, Flagyl, cefepime * White blood cell count down to 17.4, creatinine 0.90 * We can go ahead and DC continuous radiation monitor 06/26/24: * Blood cultures still showing no growth on preliminary read * Urine culture was negative * Continue vancomycin, Flagyl, cefepime * White blood cell count continues to trend down currently 14.5 06/27/24: * Blood culture still showing no growth on preliminary read * Continue vancomycin, Flagyl, cefepime * White blood cell count 15.7 * Continue wound care 06/28/24: * Blood culture still showing no growth to date on preliminary read * Continue vancomycin, cefepime, Flagyl per general surgery team they would still like to stick with the IV antibiotics for now * White blood cell count down to 14.8 today * Nursing to teach wound care to patient and significant other * Will touch base with Dr. Greene tomorrow regarding antibiotics (2) Osteomyelitis of foot, right, acute: Code(s): M86.171 - Other acute osteomyelitis, right ankle and foot Status: Acute Assessment and Plan: 06/24/24: * Right foot x-ray showing soft tissue defect and soft tissue gas involving the 2nd digit * Soft tissue ultrasound of the right lower extremity shows an enlarged lymph node in the right upper thigh likely reactive * Right lower extremity CT showing osteomyelitis involving 2nd proximal, middle, and distal phalanges * Continue pain control * General surgery consulted * Continue NPO status for now * Continue IV antibiotics * Blood sugar controlled 06/25/24: * Plan for surgery today with General surgery * Remain NPO * Continue IV fluids for now * Continue IV antibiotics * Continue pain control 06/26/24: * Patient is postop day 1 from a right 2nd toe amputation, incision and drainage of right 1st toe abscess * Continue IV antibiotics * DC IV fluids * Increase diet back to regular diabetic diet * Continue pain control * General surgery following 06/27/24: * Patient is postop day 2 * Continue IV antibiotics * Advanced diet as tolerated to a regular diabetic diet * Continue glycemic control * Continue pain control * General surgery following * Blood cultures showing no growth on preliminary read 06/28/24: * Post op day 3 * Continue IV antibiotics per general surgery recommendation * General surgery following * Teach wound care and dressing changes to patient and significant other (3) Diabetic wet gangrene of the foot: Code(s): E11.52 - Type 2 diabetes mellitus with d
--- NOTE | 2024-06-28 10:25 | PM.IMPN ---
Progress Note: A&P Assessment and Plan (1) Sepsis: Qualifiers: Sepsis acute organ dysfunction status: unspecified Sepsis type: sepsis due to unspecified organism Qualified Code(s): A41.9 - Sepsis, unspecified organism Code(s): A41.9 - Sepsis, unspecified organism Status: Acute Assessment and Plan: 06/24/24: Patient initially meeting sepsis criteria with WBC 24.9,Temp 101, HR 123, RR 21, NORMAN with creatinine 1.70. After receiving 2L NS heart rate improved to 99, RR 16, temp 97.2, creatinine 1.[address] showing osteomyelitis involving the 2nd proximal, middle, and distal phalanges Initial white blood cell count 24.9, now down to 18.9 today Creatinine 2.2 today CRP 37.1 initially Blood and urine cultures were obtained and pending Continue vancomycin, Flagyl, cefepime Will discontinue Clindamycin Continue cardiac monitoring for now 06/25/24: Blood culture showing no growth today on preliminary read. Urine culture negative. Continue vancomycin, Flagyl, cefepime White blood cell count down to 17.4, creatinine 0.90 We can go ahead and DC continuous radiation monitor 06/26/24: Blood cultures still showing no growth on preliminary read Urine culture was negative Continue vancomycin, Flagyl, cefepime White blood cell count continues to trend down currently 14.5 06/27/24: Blood culture still showing no growth on preliminary read Continue vancomycin, Flagyl, cefepime White blood cell count 15.7 Continue wound care 06/28/24: Blood culture still showing no growth to date on preliminary read Continue vancomycin, cefepime, Flagyl per general surgery team they would still like to stick with the IV antibiotics for now White blood cell count down to 14.8 today Nursing to teach wound care to patient and significant other Will touch base with Dr. Greene tomorrow regarding antibiotics (2) Osteomyelitis of foot, right, acute: Code(s): M86.171 - Other acute osteomyelitis, right ankle and foot Status: Acute Assessment and Plan: 06/24/24: Right foot x-ray showing soft tissue defect and soft tissue gas involving the 2nd digit Soft tissue ultrasound of the right lower extremity shows an enlarged lymph node in the right upper thigh likely reactive Right lower extremity CT showing osteomyelitis involving 2nd proximal, middle, and distal phalanges Continue pain control General surgery consulted Continue NPO status for now Continue IV antibiotics Blood sugar controlled 06/25/24: Plan for surgery today with General surgery Remain NPO Continue IV fluids for now Continue IV antibiotics Continue pain control 06/26/24: Patient is postop day 1 from a right 2nd toe amputation, incision and drainage of right 1st toe abscess Continue IV antibiotics DC IV fluids Increase diet back to regular diabetic diet Continue pain control General surgery following 06/27/24: Patient is postop day 2 Continue IV antibiotics Advanced diet as tolerated to a regular diabetic diet Continue glycemic control Continue pain control General surgery following Blood cultures showing no growth on preliminary read 06/28/24: Post op day 3 Continue IV antibiotics per general surgery recommendation General surgery following Teach wound care and dressing changes to patient and significant other (3) Diabetic wet gangrene of the foot: Code(s): E11.52 - Type 2 diabetes mellitus with diabetic peripheral angiopathy with gangrene Status: Acute Assessment and Plan: See above (4) Uncontrolled diabetes mellitus: Qualifiers: Diabetes mellitus type: type 2 Glycemic state: with hyperglycemia Qualified Code(s): E11.65 - Type 2 diabetes mellitus with hyperglycemia Status: Acute Assessment and Plan: 06/24/24: Blood sugars ranging 226-300 Hgb A1C 10.8 Accu checks AC/HS Mid dose SSI ordered hypoglycemic protocol in
[2024-06-28 12:01] LABS: Glucose Point of Care 136 mg/dl (65-105)
[2024-06-28 12:39] VITALS: BP 139/80; PULSE 85; RESP 16; O2SAT 97
[2024-06-28] MEDS: amLODIPine BESYLATE 2.5 MG TABLET PO (12:40)
--- NOTE | 2024-06-28 13:28 | PM.PNGS ---
Progress Note: A&P Assessment and Plan (1) Sepsis: Qualifiers: Sepsis acute organ dysfunction status: unspecified Sepsis type: sepsis due to unspecified organism Qualified Code(s): A41.9 - Sepsis, unspecified organism Code(s): A41.9 - Sepsis, unspecified organism Status: Acute Assessment and Plan: White blood cell count continues to decrease, 14,800 today. On cefepime, vancomycin, metronidazole. (2) Gangrene of toe of right foot: Code(s): I96 - Gangrene, not elsewhere classified Status: Acute Assessment and Plan: Second toe amputation healing well for the most part, plantar aspect of incision shows darkened skin and very soft under the incision. May need a suture or 2 removed from here. (3) Diabetic toe ulcer: Qualifiers: Diabetes mellitus type: type 2 Laterality: right Non-pressure ulcer stage: unspecified non-pressure ulcer stage Qualified Code(s): E11.621 - Type 2 diabetes mellitus with foot ulcer; L97.519 - Non-pressure chronic ulcer of other part of right foot with unspecified severity Code(s): E11.621 - Type 2 diabetes mellitus with foot ulcer; L97.509 - Non-pressure chronic ulcer of other part of unspecified foot with unspecified severity Status: Chronic Assessment and Plan: First and 3rd toe ulcers clean and slowly healing Subjective Subjective Date/Time Seen: 06/28/24 13:28 Post Op day: 3 Patient reports: no new complaints, tolerating a regular diet and afebrile Exam Const: General: cooperative and comfortable Extrem: Right lower extremity: foot (Posterior or plantar wound with darkened skin, soft) Details: no edema and other (Barby intact, anterior incision good, toe wounds clean); no tenderness and no unusual warmth Objective Data Vital Signs Vital Signs: Vital Signs - 24 hr 06/27/24 14:42 06/27/24 15:07 06/27/24 18:48 Temperature 36.3 C L Pulse Rate 92 Respiratory Rate 28 H 20 Blood Pressure 151/77 H Pulse Oximetry 100 96 Oxygen Delivery Room Air 06/27/24 20:00 06/28/24 06:39 06/28/24 09:18 Temperature 36.9 C 36.3 C L Pulse Rate 93 95 Respiratory Rate 18 16 Blood Pressure 151/80 H 157/74 H Pulse Oximetry 99 100 Oxygen Delivery Room Air 06/28/24 09:20 06/28/24 12:39 Temperature Pulse Rate 85 Respiratory Rate 16 Blood Pressure 139/80 Pulse Oximetry 97 Oxygen Delivery Room Air Intake/Output Intake/Output: Intake & Output 06/25/24 06/26/24 06/27/24 06/28/24 23:59 23:59 23:59 23:59 Intake Total 3180 2280 2220 170 Output Total 2400 1700 700 Balance 099 493 3236 170 Meds/Results Medications: Active Medications Generic Name Dose Route Start Last Admin Trade Name Freq PRN Reason Stop Dose Admin Acetaminophen 500 mg 06/25/24 15:41 Acetaminophen 500 Mg Tablet PO Q6H PRN Pain Rated 1-3 Hydrocodone Bitart/Acetaminophen 1 tab 06/25/24 15:41 Hydrocodone/Acetaminophen (*Crx) 5-325 Mg Tablet PO Q4H PRN Pain Rated 4-6 Hydrocodone Bitart/Acetaminophen 1 tab 06/25/24 15:41 Hydrocodone/Acetaminophen (*Crx) 7.5-325 Mg Tablet PO Q4H PRN Pain Rated 7-10 Amlodipine Besylate 7.5 mg 06/29/24 09:00 Amlodipine Besylate 2.5 Mg Tablet PO DAILY MALINI Dextrose 12.5 gm 06/23/24 23:05 Dextrose 50% 25 Gm/50 Ml Syringe IV PUSH PRN PRN Hypoglycemia Protocol Empagliflozin 10 mg 06/25/24 09:00 06/26/24 09:30 Empagliflozin 10 Mg Tablet PO 10 mg DAILY MALINI Administration Enoxaparin Sodium 40 mg 06/26/24 09:00 06/28/24 09:20 Enoxaparin 40 Mg/0.4 Ml Syringe SUB-Q 40 mg DAILY MALINI Administration Glucagon 1 mg 06/23/24 23:05 Glucagon For Inj 1 Mg Vial IM PRN PRN Hypoglycemia Protocol Glucose 15 gm 06/23/24 23:05 Glucose Oral Gel 15 Gm Of Glucse In 37.5 Gm Tube PO PRN PRN Hypoglycemia Protocol Hydrochlorothiazide 12.5 mg 06/29/24 09:00 Hydr
[2024-06-28 16:41] LABS: Glucose Point of Care 142 mg/dl (65-105)
[2024-06-28] MEDS: METOCLOPRAMIDE HCL INJ 10 MG/2 ML VIAL 5 MG IV PUSH (17:13)
[2024-06-28 20:00] VITALS: PULSE 92; RESP 20; O2SAT 99
[2024-06-28 20:08] VITALS: BP 158/79; PULSE 92; RESP 20; TEMP 37; O2SAT 99
[2024-06-28] MEDS: INSULIN GLARGINE (*BKC) 100 UNITS/ML 8 UNITS SUB-Q (20:33)
[2024-06-28 20:50] LABS: Glucose Point of Care 157 mg/dl (65-105)
[2024-06-28 21:44] LABS: Vancomycin Trough 19.3 ug/mL (10.0-20.0)
[2024-06-28] MEDS: VANCOMYCIN 1,750 MG/NS 500 ML 1,750 MG/500 ML BAG 250 MG IVPB (22:50)
[2024-06-29] VITALS (7 sets, daily range): BP systolic 129–153; BP diastolic 61–77; PULSE 86–90; RESP 12–16; TEMP 36.2–36.7; O2SAT 95–100
[2024-06-29] MEDS: METOCLOPRAMIDE HCL INJ 10 MG/2 ML VIAL 5 MG IV PUSH ×4 (00:34→17:10)
[2024-06-29] MEDS: CEFEPIME 2 GM/NS 50 ML 2 GM/50 ML BAG IVPB ×2 (00:34→13:19)
[2024-06-29 05:41] LABS: Basophils Absolute Auto 0.1 K/mm3 (0.0-0.1); Basophils Percent Auto 0.6 % (0.2-1.2); Eosinophils Absolute Auto 0.1 K/mm3 (0-0.3); Eosinophils Percent Auto 1.2 % (0-4.4); Hematocrit 30.6 % (42.0-52.0); Hemoglobin 10.2 g/dL (14.0-18.0); Immature Granulocyte Absolute 0.19 K/mm3 (0.00-0.031); Immature Granulocyte Percent A 1.6 % (0-0.5); Lymphocytes Percent Auto 12.8 % (18.3-44.2); Mean Corpuscular HGB Conc 33.3 g/dl (32-36); Mean Corpuscular Hemoglobin 25.6 pg (26-34); Mean Corpuscular Volume 76.9 fl (80-100); Mean Platelet Volume 9.5 fl (7.4-10.4); Monocytes Absolute Auto 1.6 K/mm3 (0.1-0.6); Monocytes Percent Auto 13.3 % (2.6-8.5); Neutrophils Absolute Auto 8.2 K/mm3 (1.3-6.7); Neutrophils Percent Auto 70.5 % (45.5-73.1); Platelet Count Result 470 k/mm3 (150-375); Red Blood Count 3.98 M/mm3 (4.6-6.20); Red Cell Distribution Width 12.7 % (11.5-14.5); White Blood Count 11.7 K/mm3 (4.5-10.0)
[2024-06-29 05:50] LABS: Alanine Aminotransferase 27 U/L (6-50); Albumin Level 3.3 g/dL (3.5-5.1); Alkaline Phosphatase 115 U/L (38-126); Anion Gap 6 mmol/L (4-12); Aspartate Amino Transferase 37 U/L (17-59); Bilirubin,Total 0.5 mg/dL (0.2-1.3); Blood Urea Nitrogen 9 mg/dL (9-20); Calcium 8.7 mg/dL (8.4-10.2); Carbon Dioxide 31 mmol/L (22-30); Chloride 95 mmol/L (98-107); Estimated CRCL calculation 82 ml/min; Estimated Glomerular Filt Rate > 60; Glucose 202 mg/dL (65-110); Potassium 3.1 mmol/L (3.4-5.0); Sodium 132 mmol/L (137-145)
[2024-06-29] MEDS: metroNIDAZOLE 500 MG TABLET PO ×3 (06:32→20:38)
[2024-06-29 07:14] LABS: Glucose Point of Care 174 mg/dl (65-105)
[2024-06-29 08:11] LABS: Glucose Point of Care 174 mg/dl (65-105)
[2024-06-29] MEDS: POTASSIUM CHLORIDE 20 MEQ ER TABLET 40 MEQ PO (09:35)
[2024-06-29] MEDS: ENOXAPARIN 40 MG/0.4 ML SYRINGE SUB-Q (09:36)
[2024-06-29] MEDS: hydroCHLOROthiazide 12.5 MG CAPSULE PO (09:36)
[2024-06-29] MEDS: SACCHAROMYCES BOULARDII 250 MG CAPSULE PO ×3 (09:36→17:11)
[2024-06-29] MEDS: amLODIPine BESYLATE 2.5 MG TABLET 7.5 MG PO (09:36)
[2024-06-29 11:47] LABS: Glucose Point of Care 166 mg/dl (65-105)
[2024-06-29] MEDS: VANCOMYCIN 1,750 MG/NS 500 ML 1,750 MG/500 ML BAG 250 MG IVPB ×2 (13:52→23:15)
--- NOTE | 2024-06-29 14:29 | P.PNIM_ITS ---
Progress Note: A&P Assessment and Plan (1) Sepsis: Qualifiers: Sepsis acute organ dysfunction status: unspecified Sepsis type: sepsis due to unspecified organism Qualified Code(s): A41.9 - Sepsis, unspecified o rganism Code(s): A41.9 - Sepsis, unspecified organism Status: Acute Assessment and Plan: 06/24/24: * Patient initially meeting sepsis criteria with WBC 24.9,Temp 101, HR 123, RR 21, NORMAN with creatinine 1.70. * After receiving 2L NS heart rate improved to 99, RR 16, temp 97.2, creatinine 1.20 * Right lower extremity CT showing osteomyelitis involving the 2nd proximal, middle, and distal phalanges * Initial white blood cell count 24.9, now down to 18.9 today * Creatinine 2.2 today * CRP 37.1 initially * Blood and urine cultures were obtained and pending * Continue vancomycin, Flagyl, cefepime * Will discontinue Clindamycin * Continue cardiac monitoring for now 06/25/24: * Blood culture showing no growth today on preliminary read. * Urine culture negative. * Continue vancomycin, Flagyl, cefepime * White blood cell count down to 17.4, creatinine 0.90 * We can go ahead and DC continuous threat monitoring analyst 06/26/24: * Blood cultures still showing no growth on preliminary read * Urine culture was negative * Continue vancomycin, Flagyl, cefepime * White blood cell count continues to trend down currently 14.5 06/27/24: * Blood culture still showing no growth on preliminary read * Continue vancomycin, Flagyl, cefepime * White blood cell count 15.7 * Continue wound care 06/28/24: * Blood culture still showing no growth to date on preliminary read * Continue vancomycin, cefepime, Flagyl per general surgery team they would still like to stick with the IV antibiotics for now * White blood cell count down to 14.8 today * Nursing to teach wound care to patient and significant other * Will touch base with Dr. Greene tomorrow regarding antibiotics 06/29/24: * Blood cultures negative on final read * Will discuss antibiotic choice with General surgery team today and will plan to transition to oral if okay with the general surgery team * White blood cell count down to 11.7 today (2) Osteomyelitis of foot, right, acute: Code(s): M86.171 - Other acute osteomyelitis, right ankle and foot Status: Acute Assessment and Plan: 06/24/24: * Right foot x-ray showing soft tissue defect and soft tissue gas involving the 2nd digit * Soft tissue ultrasound of the right lower extremity shows an enlarged lymph node in the right upper thigh likely reactive * Right lower extremity CT showing osteomyelitis involving 2nd proximal, middle, and distal phalanges * Continue pain control * General surgery consulted * Continue NPO status for now * Continue IV antibiotics * Blood sugar controlled 06/25/24: * Plan for surgery today with General surgery * Remain NPO * Continue IV fluids for now * Continue IV antibiotics * Continue pain control 06/26/24: * Patient is postop day 1 from a right 2nd toe amputation, incision and drainage of right 1st toe abscess * Continue IV antibiotics * DC IV fluids * Increase diet back to regular diabetic diet * Continue pain control * General surgery following 06/27/24: * Patient is postop day 2 * Continue IV antibiotics * Advanced diet as tolerated to a regular diabetic diet * Continue glycemic control * Continue pain control * General surgery following * Blood cultures showing no growth on preliminary read 06/28/24: * Post op day 3 * Continue IV antibiotics per
--- NOTE | 2024-06-29 14:29 | PM.IMPN ---
Progress Note: A&P Assessment and Plan (1) Sepsis: Qualifiers: Sepsis acute organ dysfunction status: unspecified Sepsis type: sepsis due to unspecified organism Qualified Code(s): A41.9 - Sepsis, unspecified organism Code(s): A41.9 - Sepsis, unspecified organism Status: Acute Assessment and Plan: 06/24/24: Patient initially meeting sepsis criteria with WBC 24.9,Temp 101, HR 123, RR 21, ONRMAN with creatinine 1.70. After receiving 2L NS heart rate improved to 99, RR 16, temp 97.2, creatinine 1.[address] showing osteomyelitis involving the 2nd proximal, middle, and distal phalanges Initial white blood cell count 24.9, now down to 18.9 today Creatinine 2.2 today CRP 37.1 initially Blood and urine cultures were obtained and pending Continue vancomycin, Flagyl, cefepime Will discontinue Clindamycin Continue cardiac monitoring for now 06/25/24: Blood culture showing no growth today on preliminary read. Urine culture negative. Continue vancomycin, Flagyl, cefepime White blood cell count down to 17.4, creatinine 0.90 We can go ahead and DC continuous lunchroom monitor 06/26/24: Blood cultures still showing no growth on preliminary read Urine culture was negative Continue vancomycin, Flagyl, cefepime White blood cell count continues to trend down currently 14.5 06/27/24: Blood culture still showing no growth on preliminary read Continue vancomycin, Flagyl, cefepime White blood cell count 15.7 Continue wound care 06/28/24: Blood culture still showing no growth to date on preliminary read Continue vancomycin, cefepime, Flagyl per general surgery team they would still like to stick with the IV antibiotics for now White blood cell count down to 14.8 today Nursing to teach wound care to patient and significant other Will touch base with Dr. Greene tomorrow regarding antibiotics 06/29/24: Blood cultures negative on final read Will discuss antibiotic choice with General surgery team today and will plan to transition to oral if okay with the general surgery team White blood cell count down to 11.7 today (2) Osteomyelitis of foot, right, acute: Code(s): M86.171 - Other acute osteomyelitis, right ankle and foot Status: Acute Assessment and Plan: 06/24/24: Right foot x-ray showing soft tissue defect and soft tissue gas involving the 2nd digit Soft tissue ultrasound of the right lower extremity shows an enlarged lymph node in the right upper thigh likely reactive Right lower extremity CT showing osteomyelitis involving 2nd proximal, middle, and distal phalanges Continue pain control General surgery consulted Continue NPO status for now Continue IV antibiotics Blood sugar controlled 06/25/24: Plan for surgery today with General surgery Remain NPO Continue IV fluids for now Continue IV antibiotics Continue pain control 06/26/24: Patient is postop day 1 from a right 2nd toe amputation, incision and drainage of right 1st toe abscess Continue IV antibiotics DC IV fluids Increase diet back to regular diabetic diet Continue pain control General surgery following 06/27/24: Patient is postop day 2 Continue IV antibiotics Advanced diet as tolerated to a regular diabetic diet Continue glycemic control Continue pain control General surgery following Blood cultures showing no growth on preliminary read 06/28/24: Post op day 3 Continue IV antibiotics per general surgery recommendation General surgery following Teach wound care and dressing changes to patient and significant other 06/29/24: Postop day 4 Will discuss antibiotics with General surgery team General surgery following Continue wound care (3) Diabetic wet gangrene of the foot: Code(s): E11.52 - Type 2 diabetes mellitus with diabetic peripheral angiopathy with gangrene Status: Acute Assessment and Plan: See above (4) Uncontrolle
--- NOTE | 2024-06-29 15:47 | PM.PNGS ---
Progress Note: A&P Assessment and Plan (1) Sepsis: Qualifiers: Sepsis acute organ dysfunction status: unspecified Sepsis type: sepsis due to unspecified organism Qualified Code(s): A41.9 - Sepsis, unspecified organism Code(s): A41.9 - Sepsis, unspecified organism Status: Acute Assessment and Plan: Resolving s/p source control. WBC continues to trend down. Continue IV antibiotics. Blood cx negative. (2) Gangrene of toe of right foot: Code(s): I96 - Gangrene, not elsewhere classified Status: Acute Assessment and Plan: Status post right 2nd toe ray amputation with inder drain in place. Overall improving and doing well. WBC count trending down. Will reassess again tomorrow and may need to remove a few sutures on the plantar aspect of the wound or between the toes. Continue local wound care Continue IV antibiotics (3) Diabetic toe ulcer: Qualifiers: Diabetes mellitus type: type 2 Laterality: right Non-pressure ulcer stage: unspecified non-pressure ulcer stage Qualified Code(s): E11.621 - Type 2 diabetes mellitus with foot ulcer; L97.519 - Non-pressure chronic ulcer of other part of right foot with unspecified severity Code(s): E11.621 - Type 2 diabetes mellitus with foot ulcer; L97.509 - Non-pressure chronic ulcer of other part of unspecified foot with unspecified severity Status: Chronic Plan I have discussed the patient's case and plan of care with Dr. Briscoe. Subjective Subjective Date/Time Seen: 06/29/24 15:47 Post Op day: 4 (Right 2nd toe ray amputation, incision and drainage of right 1st toe abscess) Patient reports: afebrile Interval history: No new complaints overnight. Denies any pain. White blood cell count down to 11,000 today. Exam Const: General: comfortable and no acute distress Orientation/consciousness: patient oriented x3 Extrem: Right lower extremity: foot Details: normal capillary refill and vascular exam Details: dorsalis pedis pulse present and posterior tibial pulse present Left lower extremity: foot Details: edema and vascular exam Details: dorsalis pedis pulse present and posterior tibial pulse present Other: Right foot dressing removed. Minimal serosanguineous drainage on the dressing. Inder drain in place. Great toe wound extending to the medial and lateral side with minimal yellow slough in the wound bed on the medial side and dry, firm tran wound base on the medial side. Amputation incision with suture intact and inder drain in place, there is a small amount of cloudy serosanguineous drainage coming from between the 1st and 3rd toe at the incision when expressed. The bottom of the incision on the plantar aspect has a small circular area of dark skin that is soft and boggy, no purulent drainage or crepitus. The dorsal aspect of the incision is dry and sutures intact. The 3rd toe is darkened with some erythema and blistering of the skin. No tenderness on exam. Sensation greatly decreased with no light-touch sensation of his toes. Objective Data Vital Signs Vital Signs: Vital Signs - 24 hr 06/28/24 20:08 06/28/24 20:00 06/29/24 09:09 Temperature 98.6 F Pulse Rate 92 92 Respiratory Rate 20 20 Blood Pressure 158/79 H Pulse Oximetry 99 99 95 Oxygen Delivery Room Air Room Air Fraction of Inspired Oxygen 21 06/29/24 09:33 06/29/24 09:36 06/29/24 13:53 Temperature 97.6 F 97.2 F L Pulse Rate 86 90 Respiratory Rate 16 12 Blood Pressure 153/77 H 138/76 Pulse Oximetry 99 99 99 Oxygen Delivery Room Air Fraction of Inspired Oxygen Intake/Output Intake/Output: Intake & Output 06/26/24 06/27/24 06/28/24 06/29/24 23:59 23:59 23:59 23:59 Intake Total 2280 2220 1080 1270 Output Total 1700 700 Balance 580 1520 1080 1270 Meds/Results Medications: Active Medications Generic Name Dose Route Start Last Admin Trade Name Freq PRN Reason Stop Dose Admin Acetaminophen 500 m
[2024-06-29 17:03] LABS: Glucose Point of Care 232 mg/dl (65-105)
[2024-06-29] MEDS: INSULIN ASPART (*BKC) 100 UNITS/ML SUB-Q (17:14)
[2024-06-29] MEDS: INSULIN GLARGINE (*BKC) 100 UNITS/ML 10 UNITS SUB-Q (20:38)
[2024-06-29 20:51] LABS: Glucose Point of Care 191 mg/dl (65-105)
[2024-06-29 23:06] LABS: Vancomycin Trough 20.3 ug/mL (10.0-20.0)
[2024-06-30] MEDS: CEFEPIME 2 GM/NS 50 ML 2 GM/50 ML BAG IVPB ×2 (01:29→12:13)
[2024-06-30] MEDS: METOCLOPRAMIDE HCL INJ 10 MG/2 ML VIAL 5 MG IV PUSH ×4 (01:29→17:16)
[2024-06-30 04:24] VITALS: BP 126/75; PULSE 84; RESP 18; TEMP 36.9; O2SAT 99
[2024-06-30 04:35] LABS: Glucose Point of Care 141 mg/dl (65-105)
[2024-06-30 05:02] LABS: Basophils Absolute Auto 0.1 K/mm3 (0.0-0.1); Basophils Percent Auto 0.5 % (0.2-1.2); Eosinophils Absolute Auto 0.1 K/mm3 (0-0.3); Eosinophils Percent Auto 1.2 % (0-4.4); Hematocrit 30.1 % (42.0-52.0); Hemoglobin 10.1 g/dL (14.0-18.0); Immature Granulocyte Absolute 0.21 K/mm3 (0.00-0.031); Immature Granulocyte Percent A 1.9 % (0-0.5); Lymphocytes Absolute Auto 1.85 K/mm3 (0.9-3.2); Lymphocytes Percent Auto 16.9 % (18.3-44.2); Mean Corpuscular HGB Conc 33.6 g/dl (32-36); Mean Corpuscular Hemoglobin 26.1 pg (26-34); Mean Corpuscular Volume 77.8 fl (80-100); Mean Platelet Volume 9.3 fl (7.4-10.4); Monocytes Absolute Auto 1.3 K/mm3 (0.1-0.6); Neutrophils Absolute Auto 7.4 K/mm3 (1.3-6.7); Neutrophils Percent Auto 67.5 % (45.5-73.1); Platelet Count Result 453 k/mm3 (150-375); Red Blood Count 3.87 M/mm3 (4.6-6.20); Red Cell Distribution Width 12.7 % (11.5-14.5)
[2024-06-30 05:15] LABS: Alanine Aminotransferase 28 U/L (6-50); Albumin Level 3.3 g/dL (3.5-5.1); Alkaline Phosphatase 105 U/L (38-126); Anion Gap 5 mmol/L (4-12); Aspartate Amino Transferase 41 U/L (17-59); Bilirubin,Total 0.5 mg/dL (0.2-1.3); Blood Urea Nitrogen 7 mg/dL (9-20); Calcium 8.6 mg/dL (8.4-10.2); Carbon Dioxide 32 mmol/L (22-30); Chloride 95 mmol/L (98-107); Estimated CRCL calculation 82 ml/min; Estimated Glomerular Filt Rate > 60; Glucose 143 mg/dL (65-110); Potassium 3.2 mmol/L (3.4-5.0); Sodium 132 mmol/L (137-145)
[2024-06-30] MEDS: metroNIDAZOLE 500 MG TABLET PO ×3 (05:53→20:59)
[2024-06-30 07:50] LABS: Glucose Point of Care 129 mg/dl (65-105)
[2024-06-30 08:53] VITALS: BP 118/73; PULSE 85; RESP 14; TEMP 36.2; O2SAT 99
[2024-06-30] MEDS: VANCOMYCIN 1,750 MG/NS 500 ML 1,750 MG/500 ML BAG 250 MG IVPB (08:55)
[2024-06-30 08:58] VITALS: O2SAT 99
[2024-06-30] MEDS: hydroCHLOROthiazide 12.5 MG CAPSULE PO (08:58)
[2024-06-30] MEDS: SACCHAROMYCES BOULARDII 250 MG CAPSULE PO ×3 (08:58→17:17)
[2024-06-30] MEDS: amLODIPine BESYLATE 2.5 MG TABLET 7.5 MG PO (08:59)
[2024-06-30] MEDS: ENOXAPARIN 40 MG/0.4 ML SYRINGE SUB-Q (09:00)
--- NOTE | 2024-06-30 10:41 | PCNWS ---
Weekly nutritional screen. Patient is tolerating current Diabetic diet with adequate intake 100% of meals. No questions or concerns regarding diet. No weight loss reported. No nutritional needs at this time.
[2024-06-30 11:44] LABS: Glucose Point of Care 130 mg/dl (65-105)
[2024-06-30 13:45] VITALS: BP 121/66; PULSE 92; RESP 18; TEMP 36.4; O2SAT 100
--- NOTE | 2024-06-30 14:36 | PM.IMPN ---
Progress Note: A&P Assessment and Plan (1) Sepsis: Qualifiers: Sepsis acute organ dysfunction status: unspecified Sepsis type: sepsis due to unspecified organism Qualified Code(s): A41.9 - Sepsis, unspecified organism Code(s): A41.9 - Sepsis, unspecified organism Status: Acute Assessment and Plan: Patient met sepsis criteria with WBC 24.9 temperature 101? heart rate 123 respiratory rate 21 NORMAN with creatinine of 1.7 received IV fluid resuscitation Right lower extremity CT showed osteomyelitis involving 2nd proximal middle and distal phalanges. CRP 37.1 WBC continues to improve Panculture Vancomycin Flagyl and cefepime started. Blood culture no growth to date status post amputation of Right 2nd to ray amputation I&D of right 1st toe abscess Oral antibiotics would be broad-spectrum as well as no cultures positive which would include Levaquin Flagyl and doxycycline to cover potential bacteria. anticipate Two weeks from date of surgery (2) Osteomyelitis of foot, right, acute: Code(s): M86.171 - Other acute osteomyelitis, right ankle and foot Status: Acute Assessment and Plan: Right foot x-ray showing soft tissue defect and soft tissue gas involving the 2nd digit Soft tissue ultrasound of the right lower extremity shows an enlarged lymph node in the right upper thigh likely reactive Right lower extremity CT showing osteomyelitis involving 2nd proximal, middle, and distal phalanges status post right 2nd toe amputation, incision and drainage of right 1st toe abscess 06/25/2024 continue antibiotics as above (3) Diabetic wet gangrene of the foot: Code(s): E11.52 - Type 2 diabetes mellitus with diabetic peripheral angiopathy with gangrene Status: Acute Assessment and Plan: See above (4) Uncontrolled diabetes mellitus: Qualifiers: Diabetes mellitus type: type 2 Glycemic state: with hyperglycemia Qualified Code(s): E11.65 - Type 2 diabetes mellitus with hyperglycemia Status: Acute Assessment and Plan: Hgb A1C 10.8 Accu-Cheks AC and HS On Jardiance Lantus (5) Elevated blood pressure reading: Code(s): R03.0 - Elevated blood-pressure reading, without diagnosis of hypertension Status: Acute Assessment and Plan: on amlodipine hydrochlorothiazide (6) Anemia: Code(s): D64.9 - Anemia, unspecified Status: Acute Assessment and Plan: mild some postoperative anemia Continue to monitor Subjective Date/time seen: 10/22/24 14:36 Interval history: No overnight events. Postoperative day 5 remains on IV antibiotics. Pain controlled. No shortness of breath or chest pain. Review of Systems Review of Systems: All systems reviewed & are unremarkable except as noted in HPI and below Exam Narrative: General: In no acute distress Cardiac: Normal S1 and S2. Irregular rhythm, audible gallop. Respiratory: Lungs clear to auscultation, no adventitious lung sounds, currently on room air Gastrointestinal: soft, non-distended, non-tender, normoactive bowel sounds. : voiding without difficulty. Extremities: moves all extremities well, mild right LE edema Skin: Dressing in place, inder drain in place to great toe. Neuro: Alert and oriented x4 Objective Data Vital Signs Vital Signs: Vital Signs - 24 hr 06/29/24 20:00 06/29/24 20:23 06/29/24 23:03 Temperature 98.1 F 97.7 F Pulse Rate 90 88 88 Respiratory Rate 12 16 16 Blood Pressure 129/61 139/76 Pulse Oximetry 99 99 100 Oxygen Delivery Room Air Fraction of Inspired Oxygen 21 06/30/24 04:24 06/30/24 08:53 06/30/24 08:58 Temperature 98.5 F 97.2 F L Pulse Rate 84 85 Respiratory Rate 18 14 Blood Pressure 126/75 118/73 Pulse Oximetry 99 99 99 Oxygen Delivery Room Air Fraction of Inspired Oxygen 06/30/24 13:45 Temperature 97.5 F L Pulse Rate 92 Respiratory Rate 18 Blood Pressure 121/66 Pulse Oxim
--- NOTE | 2024-06-30 14:40 | PM.PNGS ---
Progress Note: A&P Assessment and Plan (1) Gangrene of toe of right foot: Code(s): I96 - Gangrene, not elsewhere classified Status: Acute Assessment and Plan: Status post right 2nd toe ray amputation with inder drain in place. Two sutures removed today. Overall healing well. WBC count trending down. Continue local wound care with silver gel dressing changes Continue IV antibiotics If he continues to improve, then he may be able to discharge home in the next few days. Will reassess tomorrow. (2) Diabetic toe ulcer: Qualifiers: Diabetes mellitus type: type 2 Laterality: right Non-pressure ulcer stage: unspecified non-pressure ulcer stage Qualified Code(s): E11.621 - Type 2 diabetes mellitus with foot ulcer; L97.519 - Non-pressure chronic ulcer of other part of right foot with unspecified severity Code(s): E11.621 - Type 2 diabetes mellitus with foot ulcer; L97.509 - Non-pressure chronic ulcer of other part of unspecified foot with unspecified severity Status: Chronic (3) Sepsis: Qualifiers: Sepsis acute organ dysfunction status: unspecified Sepsis type: sepsis due to unspecified organism Qualified Code(s): A41.9 - Sepsis, unspecified organism Code(s): A41.9 - Sepsis, unspecified organism Status: Acute Assessment and Plan: Resolved s/p 2nd toe ray amputation Plan I have discussed the patient's case and plan of care with Dr. Briscoe. Subjective Subjective Date/Time Seen: 06/30/24 14:40 Post Op day: 5 (Right 2nd toe ray amputation, incision and drainage of right 1st toe abscess) Patient reports: no new complaints and afebrile Interval history: Patient seen today. No events overnight. Doing well without any specific complaints. Patient seen with dr. Briscoe. Exam Const: General: comfortable and no acute distress Orientation/consciousness: patient oriented x3 Extrem: Other: Right foot dressing removed. Minimal serosanguineous drainage on the dressing. Great toe wound extending to the medial and lateral side with minimal yellow slough in the wound bed on the lateral side and dry, firm tran wound base on the medial side. Amputation incision with sutures intact and inder drain in place, there is a scant amount of cloudy serosanguineous drainage coming from between the 1st and 3rd toe at the incision when expressed. The bottom of the incision on the plantar aspect has a small circular area of dark skin that is soft, no purulent drainage or crepitus. Two sutures removed on the plantar aspect of the incision in this area and a small area of the necrotic skin was debrided. There is some callus that is peeling off around the 3rd toe and dorsal aspect of the foot that was removed. Dressing was then reapplied. Objective Data Vital Signs Vital Signs: Vital Signs - 24 hr 06/29/24 20:00 06/29/24 20:23 06/29/24 23:03 Temperature 98.1 F 97.7 F Pulse Rate 90 88 88 Respiratory Rate 12 16 16 Blood Pressure 129/61 139/76 Pulse Oximetry 99 99 100 Oxygen Delivery Room Air Fraction of Inspired Oxygen 21 06/30/24 04:24 06/30/24 08:53 06/30/24 08:58 Temperature 98.5 F 97.2 F L Pulse Rate 84 85 Respiratory Rate 18 14 Blood Pressure 126/75 118/73 Pulse Oximetry 99 99 99 Oxygen Delivery Room Air Fraction of Inspired Oxygen 06/30/24 13:45 Temperature 97.5 F L Pulse Rate 92 Respiratory Rate 18 Blood Pressure 121/66 Pulse Oximetry 100 Oxygen Delivery Fraction of Inspired Oxygen Intake/Output Intake/Output: Intake & Output 06/27/24 06/28/24 06/29/24 06/30/24 23:59 23:59 23:59 23:59 Intake Total 2220 1080 2550 970 Output Total 700 500 Balance 1520 1080 2550 470 Meds/Results Medications: Active Medications Generic Name Dose Route Start Last Admin Trade Name Freq PRN Reason Stop Dose Admin Acetaminophen 500 mg 06/25/24 15:41 Acetaminophen 500 Mg Tablet PO Q6H PRN Pain Rated 1-3 Hydrocod
[2024-06-30] MEDS: POTASSIUM CHLORIDE 20 MEQ ER TABLET 40 MEQ PO (15:12)
[2024-06-30 16:41] LABS: Glucose Point of Care 136 mg/dl (65-105)
[2024-06-30 20:13] VITALS: BP 145/86; PULSE 90; RESP 18; TEMP 36.5; O2SAT 100
[2024-06-30] MEDS: INSULIN GLARGINE (*BKC) 100 UNITS/ML 10 UNITS SUB-Q (20:58)
[2024-06-30 21:30] VITALS: O2SAT 99
[2024-07-01] MEDS: CEFEPIME 2 GM/NS 50 ML 2 GM/50 ML BAG IVPB ×2 (00:49→12:42)
[2024-07-01] MEDS: METOCLOPRAMIDE HCL INJ 10 MG/2 ML VIAL 5 MG IV PUSH ×4 (00:49→18:15)
[2024-07-01] MEDS: VANCOMYCIN 1,750 MG/NS 500 ML 1,750 MG/500 ML BAG 250 MG IVPB (01:19)
[2024-07-01] MEDS: metroNIDAZOLE 500 MG TABLET PO ×3 (05:26→21:26)
[2024-07-01 05:32] VITALS: BP 132/81; PULSE 89; RESP 20; TEMP 36.6; O2SAT 98
[2024-07-01 05:48] LABS: Basophils Absolute Auto 0.1 K/mm3 (0.0-0.1); Basophils Percent Auto 0.5 % (0.2-1.2); Eosinophils Absolute Auto 0.1 K/mm3 (0-0.3); Eosinophils Percent Auto 1.2 % (0-4.4); Hematocrit 30.9 % (42.0-52.0); Hemoglobin 10.2 g/dL (14.0-18.0); Immature Granulocyte Absolute 0.26 K/mm3 (0.00-0.031); Immature Granulocyte Percent A 2.3 % (0-0.5); Lymphocytes Absolute Auto 1.82 K/mm3 (0.9-3.2); Lymphocytes Percent Auto 16.2 % (18.3-44.2); Mean Corpuscular Hemoglobin 25.7 pg (26-34); Mean Corpuscular Volume 77.8 fl (80-100); Mean Platelet Volume 9.2 fl (7.4-10.4); Monocytes Absolute Auto 1.3 K/mm3 (0.1-0.6); Monocytes Percent Auto 11.6 % (2.6-8.5); Neutrophils Absolute Auto 7.7 K/mm3 (1.3-6.7); Neutrophils Percent Auto 68.2 % (45.5-73.1); Platelet Count Result 472 k/mm3 (150-375); Red Blood Count 3.97 M/mm3 (4.6-6.20); Red Cell Distribution Width 12.9 % (11.5-14.5); White Blood Count 11.2 K/mm3 (4.5-10.0)
[2024-07-01 05:59] LABS: Alanine Aminotransferase 32 U/L (6-50); Albumin Level 3.3 g/dL (3.5-5.1); Alkaline Phosphatase 100 U/L (38-126); Anion Gap 5 mmol/L (4-12); Aspartate Amino Transferase 47 U/L (17-59); Bilirubin,Total 0.4 mg/dL (0.2-1.3); Blood Urea Nitrogen 9 mg/dL (9-20); Calcium 8.7 mg/dL (8.4-10.2); Carbon Dioxide 35 mmol/L (22-30); Chloride 93 mmol/L (98-107); Estimated CRCL calculation 75 ml/min; Estimated Glomerular Filt Rate > 60; Glucose 197 mg/dL (65-110); Magnesium 2.1 mg/dL (1.6-2.3); Potassium 3.4 mmol/L (3.4-5.0); Sodium 133 mmol/L (137-145)
[2024-07-01 08:16] LABS: Glucose Point of Care 174 mg/dl (65-105)
[2024-07-01 08:47] VITALS: BP 129/80; PULSE 87; RESP 16; O2SAT 100
[2024-07-01] MEDS: ENOXAPARIN 40 MG/0.4 ML SYRINGE SUB-Q (08:49)
[2024-07-01] MEDS: SACCHAROMYCES BOULARDII 250 MG CAPSULE PO ×3 (08:49→16:43)
[2024-07-01] MEDS: amLODIPine BESYLATE 2.5 MG TABLET 7.5 MG PO (08:49)
[2024-07-01] MEDS: hydroCHLOROthiazide 12.5 MG CAPSULE PO (08:49)
--- NOTE | 2024-07-01 11:21 | PM.PNGS ---
Progress Note: A&P Assessment and Plan (1) Gangrene of toe of right foot: Code(s): I96 - Gangrene, not elsewhere classified Status: Acute Assessment and Plan: Status post right 2nd toe ray amputation with inder drain in place. Continue local wound care with silver gel and gauze. Will probably remove [place] drain tomorrow. OK to discharge tomorrow if otherwise doing well. (2) Diabetic toe ulcer: Qualifiers: Diabetes mellitus type: type 2 Laterality: right Non-pressure ulcer stage: unspecified non-pressure ulcer stage Qualified Code(s): E11.621 - Type 2 diabetes mellitus with foot ulcer; L97.519 - Non-pressure chronic ulcer of other part of right foot with unspecified severity Code(s): E11.621 - Type 2 diabetes mellitus with foot ulcer; L97.509 - Non-pressure chronic ulcer of other part of unspecified foot with unspecified severity Status: Chronic (3) Sepsis: Qualifiers: Sepsis acute organ dysfunction status: unspecified Sepsis type: sepsis due to unspecified organism Qualified Code(s): A41.9 - Sepsis, unspecified organism Code(s): A41.9 - Sepsis, unspecified organism Status: Acute Assessment and Plan: Resolved s/p 2nd toe ray amputation Subjective Subjective Date/Time Seen: 07/01/24 11:21 Interval history: Doing well. No new complaints. Exam Extrem: Other: Right foot dressing removed. Minimal serosanguineous drainage on the dressing. Great toe wound extending to the medial and lateral side with minimal yellow slough in the wound bed on the lateral side and dry, firm tran wound base on the medial side. Amputation incision with sutures intact and inder drain in place, there is a scant amount of cloudy serosanguineous drainage coming from between the 1st and 3rd toe at the incision when expressed. The bottom of the incision on the plantar aspect has a small circular area of dark skin that is soft, no purulent drainage or crepitus. Two sutures removed on the plantar aspect of the incision in this area and a small area of the necrotic skin was debrided. There is some callus that is peeling off around the 3rd toe and dorsal aspect of the foot that was removed. Dressing was then reapplied. Objective Data Vital Signs Vital Signs: Vital Signs - 24 hr 06/30/24 13:45 06/30/24 20:13 06/30/24 20:00 Temperature 97.5 F L 97.7 F Pulse Rate 92 90 Respiratory Rate 18 18 Blood Pressure 121/66 145/86 H Pulse Oximetry 100 100 Oxygen Delivery Room Air 06/30/24 21:30 07/01/24 05:32 07/01/24 08:47 Temperature 97.9 F Pulse Rate 89 87 Respiratory Rate 20 16 Blood Pressure 132/81 129/80 Pulse Oximetry 99 98 100 Oxygen Delivery Room Air 07/01/24 08:56 Temperature Pulse Rate Respiratory Rate Blood Pressure Pulse Oximetry Oxygen Delivery Room Air Intake/Output Intake/Output: Intake & Output 06/28/24 06/29/24 06/30/24 07/01/24 23:59 23:59 23:59 23:59 Intake Total 1080 2550 2400 740 Output Total 1000 Balance 1080 2550 1400 740 Meds/Results Medications: Active Medications Generic Name Dose Route Start Last Admin Trade Name Freq PRN Reason Stop Dose Admin Acetaminophen 500 mg 06/25/24 15:41 Acetaminophen 500 Mg Tablet PO Q6H PRN Pain Rated 1-3 Hydrocodone Bitart/Acetaminophen 1 tab 06/25/24 15:41 Hydrocodone/Acetaminophen (*Crx) 5-325 Mg Tablet PO Q4H PRN Pain Rated 4-6 Hydrocodone Bitart/Acetaminophen 1 tab 06/25/24 15:41 Hydrocodone/Acetaminophen (*Crx) 7.5-325 Mg Tablet PO Q4H PRN Pain Rated 7-10 Amlodipine Besylate 7.5 mg 06/29/24 09:00 07/01/24 08:49 Amlodipine Besylate 2.5 Mg Tablet PO 7.5 mg DAILY MALINI Administration Dextrose 12.5 gm 06/23/24 23:05 Dextrose 50% 25 Gm/50 Ml Syringe IV PUSH PRN PRN Hypoglycemia Protocol Empagliflozin 10 mg 06/25/24 09:00 06/26/24 09:30 Empagliflozin 10 Mg Tablet PO
[2024-07-01 12:03] LABS: Glucose Point of Care 168 mg/dl (65-105)
--- NOTE | 2024-07-01 13:04 | PM.IMPN ---
Progress Note: A&P Assessment and Plan (1) Sepsis: Qualifiers: Sepsis acute organ dysfunction status: unspecified Sepsis type: sepsis due to unspecified organism Qualified Code(s): A41.9 - Sepsis, unspecified organism Code(s): A41.9 - Sepsis, unspecified organism Status: Acute Assessment and Plan: Patient met sepsis criteria with WBC 24.9 temperature 101? heart rate 123 respiratory rate 21 NORMAN with creatinine of 1.7 received IV fluid resuscitation Right lower extremity CT showed osteomyelitis involving 2nd proximal middle and distal phalanges. CRP 37.1 WBC continues to improve Panculture Vancomycin Flagyl and cefepime started. Blood culture negative status post amputation of Right 2nd to ray amputation I&D of right 1st toe abscess Oral antibiotics would be broad-spectrum as well as no cultures positive Anticipate Two weeks from date of surgery Plan discharge tomorrow. Drain out tomorrow. (2) Osteomyelitis of foot, right, acute: Code(s): M86.171 - Other acute osteomyelitis, right ankle and foot Status: Acute Assessment and Plan: Right foot x-ray showing soft tissue defect and soft tissue gas involving the 2nd digit Soft tissue ultrasound of the right lower extremity shows an enlarged lymph node in the right upper thigh likely reactive Right lower extremity CT showing osteomyelitis involving 2nd proximal, middle, and distal phalanges status post right 2nd toe amputation, incision and drainage of right 1st toe abscess 06/25/2024 continue antibiotics as above Remove drain tomorrow (3) Diabetic wet gangrene of the foot: Code(s): E11.52 - Type 2 diabetes mellitus with diabetic peripheral angiopathy with gangrene Status: Acute Assessment and Plan: See above (4) Uncontrolled diabetes mellitus: Qualifiers: Diabetes mellitus type: type 2 Glycemic state: with hyperglycemia Qualified Code(s): E11.65 - Type 2 diabetes mellitus with hyperglycemia Status: Acute Assessment and Plan: A1C 10.8%. The patient's blood glucose was reviewed on 07/01 Glucose remains reasonably well controlled. Diab diet Continue AccuCheks covering with sliding scale. Hypoglycemia protocol available as needed. Continue Lantus. Resume empagliflozin. Add metformin (5) Elevated blood pressure reading: Code(s): R03.0 - Elevated blood-pressure reading, without diagnosis of hypertension Status: Acute Assessment and Plan: Patient's blood pressure was reviewed on 07/01 Blood pressure remains well controlled. On HCTZ and Norvasc. Follow (6) Anemia: Code(s): D64.9 - Anemia, unspecified Status: Acute Assessment and Plan: Hgb 11.2 but dropped to the 9 range. Hgb better in the 10 range now. Probably mild postoperative anemia Continue to monitor Plan DVT prophylaxis - Lovenox Code status - Full Subjective Date/time seen: 07/01/24 13:04 Interval history: 53yo male with DM on no medications here for foot wound. Assuming care. Chart reveiwed. No problems overnight. No pain in the foot. No CP, abdominal pain or back pain. Walking with crutches. Exam Narrative: AF 97.9 129/80 87 16 100% ra Gen - NARD Chest - CTA bilaterally, nml RR CV - RRR S1/S2 Abd - Soft, NT/ND, Positive BS Ext - No pedal edema. Right foot dressing is clean, dry and intact. 2+ PT pulses bilaterally. [place] drain in place Psych - Nml mood and affect Skin - Warm and dry Objective Data Vital Signs Vital Signs: Vital Signs - 24 hr 06/30/24 13:45 06/30/24 20:13 06/30/24 20:00 Temperature 97.5 F L 97.7 F Pulse Rate 92 90 Respiratory Rate 18 18 Blood Pressure 121/66 145/86 H Pulse Oximetry 100 100 Oxygen Delivery Room Air 06/30/24 21:30 07/01/24 05:32 07/01/24 08:47 Temperature 97.9 F Pulse Rate 89 87 Respiratory Rate 20 16 Blood Pressure 132/81 129/80 Pulse Oximetry 99
[2024-07-01 14:00] VITALS: BP 112/73; PULSE 91; RESP 16; TEMP 36.6; O2SAT 99
[2024-07-01] MEDS: POTASSIUM CHLORIDE 20 MEQ ER TABLET 40 MEQ PO (15:53)
[2024-07-01] MEDS: metFORMIN HCL 250 MG TABLET PO (16:43)
[2024-07-01 17:10] LABS: Glucose Point of Care 163 mg/dl (65-105)
[2024-07-01 20:03] VITALS: BP 140/82; PULSE 93; RESP 16; TEMP 36.9; O2SAT 99
[2024-07-01 20:25] LABS: Glucose Point of Care 190 mg/dl (65-105)
[2024-07-01] MEDS: INSULIN GLARGINE (*BKC) 100 UNITS/ML 10 UNITS SUB-Q (21:26)
[2024-07-01] MEDS: VANCOMYCIN 2,000 MG/NS 500 ML 2,000 MG/500 ML BAG 250 MG IVPB (21:26)
[2024-07-02] MEDS: METOCLOPRAMIDE HCL INJ 10 MG/2 ML VIAL 5 MG IV PUSH ×3 (00:30→12:04)
[2024-07-02] MEDS: CEFEPIME 2 GM/NS 50 ML 2 GM/50 ML BAG IVPB ×2 (00:30→12:04)
[2024-07-02 04:59] VITALS: BP 118/68; PULSE 85; RESP 17; TEMP 36.5; O2SAT 99
[2024-07-02] MEDS: metroNIDAZOLE 500 MG TABLET PO ×2 (05:47→13:15)
[2024-07-02 05:55] LABS: Anion Gap 5 mmol/L (4-12); Blood Urea Nitrogen 9 mg/dL (9-20); Calcium 8.6 mg/dL (8.4-10.2); Carbon Dioxide 33 mmol/L (22-30); Chloride 94 mmol/L (98-107); Estimated CRCL calculation 69 ml/min; Estimated Glomerular Filt Rate > 60; Glucose 180 mg/dL (65-110); Potassium 3.7 mmol/L (3.4-5.0); Sodium 132 mmol/L (137-145)
[2024-07-02 07:35] LABS: Glucose Point of Care 156 mg/dl (65-105)
[2024-07-02] MEDS: EMPAGLIFLOZIN 10 MG TABLET PO (08:28)
[2024-07-02] MEDS: amLODIPine BESYLATE 2.5 MG TABLET 7.5 MG PO (08:28)
[2024-07-02] MEDS: SACCHAROMYCES BOULARDII 250 MG CAPSULE PO ×2 (08:29→12:04)
[2024-07-02] MEDS: metFORMIN HCL 250 MG TABLET PO (08:29)
[2024-07-02] MEDS: hydroCHLOROthiazide 12.5 MG CAPSULE PO (08:29)
[2024-07-02] MEDS: ENOXAPARIN 40 MG/0.4 ML SYRINGE SUB-Q (08:33)
[2024-07-02 08:37] VITALS: RESP 18; O2SAT 99
[2024-07-02 11:41] LABS: Glucose Point of Care 143 mg/dl (65-105)
--- NOTE | 2024-07-02 12:54 | PM.PNGS ---
Progress Note: A&P Assessment and Plan (1) Gangrene of toe of right foot: Code(s): I96 - Gangrene, not elsewhere classified Status: Acute Assessment and Plan: Status post right 2nd toe ray amputation [place] drain removed today and wound appears to be healing well Change dressing daily with quarter-inch iodoform gauze packing, silver gel, 4 x 4 gauze, and Kerlix wrap Will also order postop shoe. Patient to remain nonweightbearing with crutches until wound is mostly healed. Okay to discharge home today, will follow up with patient in office in 2 weeks. (2) Diabetic toe ulcer: Qualifiers: Diabetes mellitus type: type 2 Laterality: right Non-pressure ulcer stage: unspecified non-pressure ulcer stage Qualified Code(s): E11.621 - Type 2 diabetes mellitus with foot ulcer; L97.519 - Non-pressure chronic ulcer of other part of right foot with unspecified severity Code(s): E11.621 - Type 2 diabetes mellitus with foot ulcer; L97.509 - Non-pressure chronic ulcer of other part of unspecified foot with unspecified severity Status: Chronic (3) Sepsis: Qualifiers: Sepsis acute organ dysfunction status: unspecified Sepsis type: sepsis due to unspecified organism Qualified Code(s): A41.9 - Sepsis, unspecified organism Code(s): A41.9 - Sepsis, unspecified organism Status: Acute Assessment and Plan: Resolved s/p 2nd toe ray amputation Subjective Subjective Date/Time Seen: 07/02/24 12:54 Interval history: Patient continuing to do well. No significant pain. No redness or swelling to the foot. Exam Extrem: Other: [place] drain removed from right foot wound. Plantar surface appearing slightly more firm, but still soft neared the inter digit region. No purulent drainage. Wound packed with silver gel and quarter-inch iodoform gauze. Great toe with medial and lateral superficial ulceration, but no sign of deeper infection or osteomyelitis. Silver gel applied along with 4 x 4 gauze and Kerlix wrap. Objective Data Vital Signs Vital Signs: Vital Signs - 24 hr 07/01/24 14:00 07/01/24 20:03 07/01/24 20:00 Temperature 97.8 F 98.5 F Pulse Rate 91 93 Respiratory Rate 16 16 Blood Pressure 112/73 140/82 Pulse Oximetry 99 99 Oxygen Delivery Room Air 07/02/24 04:59 07/02/24 08:37 Temperature 97.7 F Pulse Rate 85 Respiratory Rate 17 18 Blood Pressure 118/68 Pulse Oximetry 99 99 Oxygen Delivery Room Air Intake/Output Intake/Output: Intake & Output 06/29/24 06/30/24 07/01/24 07/02/24 23:59 23:59 23:59 23:59 Intake Total 2550 2400 1930 690 Output Total 1000 Balance 2550 1400 1930 690 Meds/Results Medications: Active Medications Generic Name Dose Route Start Last Admin Trade Name Freq PRN Reason Stop Dose Admin Acetaminophen 500 mg 06/25/24 15:41 Acetaminophen 500 Mg Tablet PO Q6H PRN Pain Rated 1-3 Hydrocodone Bitart/Acetaminophen 1 tab 06/25/24 15:41 Hydrocodone/Acetaminophen (*Crx) 5-325 Mg Tablet PO Q4H PRN Pain Rated 4-6 Hydrocodone Bitart/Acetaminophen 1 tab 06/25/24 15:41 Hydrocodone/Acetaminophen (*Crx) 7.5-325 Mg Tablet PO Q4H PRN Pain Rated 7-10 Amlodipine Besylate 7.5 mg 06/29/24 09:00 07/02/24 08:28 Amlodipine Besylate 2.5 Mg Tablet PO 7.5 mg DAILY MALINI Administration Dextrose 12.5 gm 06/23/24 23:05 Dextrose 50% 25 Gm/50 Ml Syringe IV PUSH PRN PRN Hypoglycemia Protocol Empagliflozin 10 mg 06/25/24 09:00 07/02/24 08:28 Empagliflozin 10 Mg Tablet PO 10 mg DAILY MALINI Administration Enoxaparin Sodium 40 mg 06/26/24 09:00 07/02/24 08:33 Enoxaparin 40 Mg/0.4 Ml Syringe SUB-Q 40 mg DAILY MALINI Administration Glucagon 1 mg 06/23/24 23:05 Glucagon For Inj 1 Mg Vial IM PRN PRN Hypoglycemia Protocol Glucose 15 gm 06/23/24 23:05 Glucose Oral Gel 15 Gm Of Glucse In 37.5 Gm Tube PO
--- NOTE | 2024-07-02 12:58 | PM.DS ---
DS: Admitting Diagnosis Discharge Date 07/02/24 Admitting Diagnosis Foot wound DS: Discharge Diagnosis Discharge Diagnosis (1) Sepsis: Qualifiers: Sepsis acute organ dysfunction status: unspecified Sepsis type: sepsis due to unspecified organism Qualified Code(s): A41.9 - Sepsis, unspecified organism Code(s): A41.9 - Sepsis, unspecified organism Status: Acute (2) Osteomyelitis of foot, right, acute: Code(s): M86.171 - Other acute osteomyelitis, right ankle and foot Status: Acute (3) Diabetic wet gangrene of the foot: Code(s): E11.52 - Type 2 diabetes mellitus with diabetic peripheral angiopathy with gangrene Status: Acute (4) Uncontrolled diabetes mellitus: Qualifiers: Diabetes mellitus type: type 2 Glycemic state: with hyperglycemia Qualified Code(s): E11.65 - Type 2 diabetes mellitus with hyperglycemia Status: Acute (5) Elevated blood pressure reading: Code(s): R03.0 - Elevated blood-pressure reading, without diagnosis of hypertension Status: Acute (6) Anemia: Code(s): D64.9 - Anemia, unspecified Status: Acute DS: Summary Hospital Course Reason for hospitalization: 53yo male with DM on no medications here for foot wound. Please see H&P for details. Hospital Course: Patient met sepsis criteria on admission with WBC 24.9, fever, tachycardia, tachypnea and NORMAN. He received IV fluid resuscitation. Right lower extremity CT showed osteomyelitis involving 2nd proximal, middle and distal phalanges. CRP 37. Broad spectrum abx started after cultures obtained. Blood and Urine cultures were negative. WBC trended down. Patient underwent amputation of right 2nd toe ray amputation and I&D of right 1st toe abscess on 06/25/24. He completed 7 days of IV abx after source control with plans for oral antibiotics as broad-spectrum as no cultures positive for one more week. Drain was removed on 07/02. A1C 10.8%. The patient's blood glucose was monitored with AccuCheks covering with sliding scale. Hypoglycemia protocol was available as needed. Treated with Lantus, empagliflozin and metformin. Patient's blood pressure was monitored and noted to be elevated. HCTZ and Norvasc added. Blood pressure remains well controlled now. Hgb 11.2 but dropped to the 9 range possibly post-op anemia and/or dilution. Hgb better in the 10 range now. He is up ambulating with crutches. He plans to do dressing changes at home. He overall did well and was able to be discharged home on 07/02/24. Discharge instructions including medications discussed in detail. All questions answered. Status at Discharge Cognitive/behavioral status at discharge: stable Time Spent with Patient Time attestation: Total time spent providing and/or coordinating discharge services: 34 minutes Time spent: Greater than 30 minutes Exam Narrative: AF 97.7 118/68 85 18 99% ra Gen - NARD Chest - CTA bilaterally, nml RR CV - RRR S1/S2 Abd - Soft, NT/ND, Positive BS Ext - No pedal edema. 2+ rt DP pulse. [place] drain in place. Right great toe dusky appearing. large medial foot ulcer with clean base. Amp site with yellowish exudate at site. Psych - Nml mood and affect Skin - Warm and dry DS: Data Data Completed and Pending Completed studies during hospitalization: Pending at discharge 06/25/24 13:42 Surgical [PTH] Routine Labs on day of discharge: Labs from last 24 hours 07/02/24 07/02/24 07/02/24 11:38 07:29 05:20 Sodium 132 L Potassium 3.7 Chloride 94 L Carbon Dioxide 33 H Anion Gap 5 BUN 9 Creatinine 1.20 Estim Creat Clear Calc 69 Estimated GFR > 60 Glucose 180 H POC Capillary Glucose 143 H 156 H Calcium 8.6 Vancomycin Trough 07/01/24 07/01/24 07/01/24 19:37 18:55 17:04 Sodium Potassium Chloride Carbon Dioxide Anion Gap BUN Creatinine Estim Creat Clear Calc Est
[2024-07-02 14:00] VITALS: BP 124/73; PULSE 92; RESP 16; TEMP 36.9; O2SAT 99
[2024-07-02] MEDS: INFLUENZA TRIVALENT VACCINE 45 MCG/0.5 ML SYRINGE IM (14:00)
[2024-07-06 03:26] LABS: Glucose Point of Care 130 mg/dl (65-105)
== END 2024-07-02 15:15 | disposition home or self-care (01) | DRG 854 ==
LOC: ANHED 19:20 → ANH2MED 22:24
PROVIDERS: Nurse Practitioner Acute Care; Registered Nurse; Surgery; Admitting Provider Internal Medicine; Emergency Provider Physician Assistant; Visit Provider Internal Medicine
PROC: 0Y6M0ZB Detachment at Right Foot, Partial 2nd Ray, Open Approach (ICD-10-PCS; principal; 2024-06-25 12:30)
PROC: 0Y6M0ZB Detachment at Right Foot, Partial 2nd Ray, Open Approach (ICD-10-PCS; 2024-06-25 12:30)
DX: A41.9 Sepsis, unspecified organism (principal); E11.52 Type 2 diabetes mellitus with diabetic peripheral angiopathy with gangrene; M86.171 Other acute osteomyelitis, right ankle and foot; N17.9 Acute kidney failure, unspecified; I96 Gangrene, not elsewhere classified; E87.1 Hypo-osmolality and hyponatremia; L02.611 Cutaneous abscess of right foot; D64.89 Other specified anemias; E86.0 Dehydration; E11.42 Type 2 diabetes mellitus with diabetic polyneuropathy; L97.519 Non-pressure chronic ulcer of other part of right foot with unspecified severity; E11.65 Type 2 diabetes mellitus with hyperglycemia; E11.621 Type 2 diabetes mellitus with foot ulcer; R03.0 Elevated blood-pressure reading, without diagnosis of hypertension; Z23 Encounter for immunization; Z91.199 Patient's noncompliance with other medical treatment and regimen due to unspecified reason
CPT/HCPCS: 36415; 73630; 73700; 76882; 80048; 80053; 80061; 80202; 81001; 82010; 82607; 82728; 82746; 82948; 83036; 83540; 83550; 83605; 83735; 84443; 85025; 85610; 85730; 86140; 87040; 87086; 88305; 88311; 90471; 90656; 93005; 96361; 96365; 96367; 97161; 99285; A9270; G0008; J0692; J1650; J1815; J1836; J2250; J2270; J2405; J2704; J2765; J3370; J7030; J7120

== ENCOUNTER 2024-11-11 07:57 | Outpatient (RCR) | payer OTHER, SELFPAY ==
[2024-11-11 08:00] VITALS: BMI 25.1
== END 2025-01-25 12:20 | disposition home or self-care (01) ==
LOC: ANHWOC 07:57
PROVIDERS: Visit Provider Surgery
DX: M86.171 Other acute osteomyelitis, right ankle and foot (principal)
CPT/HCPCS: 99215; A9270; G0463

== ENCOUNTER 2024-11-25 03:29 | Observation (INO) | payer OTHER, SELFPAY ==
--- NOTE | ~2024-11-25 | XR_ITS ---
Left foot Technique: AP, oblique, and lateral views were obtained. Clinical History: Diabetic ulcer Findings: No acute fracture or dislocation is seen. Osseous alignment is anatomic. Joint spaces are p reserved without erosive or degenerative change. Soft tissue ulcer present at the plantar aspect of t he midfoot. Impression: No osseous or articular abnormality. Soft tissue ulcer to plantar aspect of the midfoot. Reviewed, dictated and finalized at location . Impression: No osseous or articular abnormality. Soft tissue ulcer to plantar aspect of the midfoot.
--- NOTE | ~2024-11-25 | CT_ITS ---
CT scan of the left foot CLINICAL HISTORY: Diabetic ulcer TECHNIQUE: Following intravenous administration of 100 cc of Omnipaque 350 contrast material, axial i maging of the left foot was performed. Sagittal and coronal reformatted images were performed. Dose r eduction technique was used on this scan by utilizing automated exposure control and iterative recons truction technique. The dose-length product (DLP) was 542.61 mGy-cm. Findings: Osseous structures are intact. No fracture or destructive change. No evidence for osteitis. Visualized joint spaces are intact. Intrinsic musculature of the foot is grossly unremarkable. There is probable shallow soft tissue ulce r to plantar aspect of the midfoot. There is mild stranding of the subcutaneous soft tissues at plant ar aspect of foot which could reflect cellulitis. No abscess evident. IMPRESSION: Shallow soft tissue ulcer to plantar aspect of the midfoot with probable surrounding cellulitis. No a bscess. No evidence for osteomyelitis. Reviewed, dictated and finalized at location . IMPRESSION: Shallow soft tissue ulcer to plantar aspect of the midfoot with probable surrou nding cellulitis. No abscess. No evidence for osteomyelitis.
--- OUTSIDE RECORDS SUMMARY | 2024-11-25 03:31 | XMS_ITS | Continuity of Care Document ---
Author Organization [facility] Address [address] [place] [address] Phone Care Team Providers Care Medical Malpractice Paralegal Name Role Phone Tosin Edward Unavailable Unavailable Allergies, Adverse Reactions, Alerts Substance Reaction Status Criticality metformin Diarrhea(moderate) Active No Inform ation Medications Medication Instructions Dosage Effective Dates (start - stop) Status Comments rosuvastatin 20 mg tablet take 1 tablet by oral route every day 20 MG - Active pantoprazole 40 mg tablet,delayed release take 1 tablet by oral route every day 40 MG - Active Procedures Procedure Date Pt inelig neg scrn depres CBC, INC PLATELETS AND DIFFERENTIAL COMPREHEN METABOLIC PANEL CMP HEMOGLOBIN A1C HGA1C, GLYCO LIPID PANEL MICROALBUMIN, QN (URINE) CREATININE, (U-R) ROUTINE VENIPUNCTURE OFFICE [id number] BODY MASS INDEX DOCD SYST BP LT 130 MM HG DIAST BP < 80 MM HG BASIC METABOLIC PANEL(BMP) HEMOGLOBIN A1C HGA1C, GLYCO MICROALBUMIN, QN (URINE) CREATININE, (U-R) ROUTINE VENIPUNCTURE OFFICE [id number] SCREENING COLONOSCOPY (NOT HIGH RISK) Au Brief Emotional/Behavioral A ssessment, With Scoring/Doct, Per Stndrd Instrument COMPREHEN METABOLIC PANEL CMP HEMOGLOBIN A1C HGA1C, GLYCO LIPID PANEL ROUTINE VENIPUNCTURE PREVENTATIVE-NEW: 40-64 Advance Directives Directive Yes / No Effective Date File Name No Information Encounters Encounter Description Practice Location Reason(s) For Visit Diagnoses Date Provider Providers Copied on Encounter [facility], [address], [place], [place], [address] , tel:[phone] [facility] Office No Information 4 Kashmir Leahy. [address], [place], [place], [address], [place]. tel:[phone] [facility] [address], [place], [place], [address] , [phone] [facility] Office Chronic Conditions (chief complaint) Type 2 diabetes mellitus with diabetic polyneuropathyHyper lipidemia, unspecifiedGastro-e sophageal reflux disease without esophagitisBody mass index [BMI] 26.0-26.9, adult May- 4 Kashmir Leahy. [address], [place], [place], [address], [place]. tel:[phone] Referring Provider: Aldo Cabral, [address], [place], [address] . tel:[phone] OFFICE [facility], [address], [place], [place], [address] , [place] [phone] [facility] Office Chronic Conditions (chief complaint) Body mass index [BMI] 25.0-25.9, adultType 2 diabetes mellitus with diabetic polyneuropathyHyper lipidemia, unspecifiedGastro-e sophageal reflux disease without esophagitisProstate cancer screening 3 Misha Carlson. [address], [place], [place], [address], [place]. tel:[phone] Referring Provider: Aldo Cabral, [address], [place], [address] . tel:[phone] [facility], [address], [place], [place], [address] , [place] tel:[phone] [facility] No Information 3 Dewayne Alexander. [address] [facility], [address], [place], [place], [address], [place]. tel:[phone] Referring Provider: Aldo Cabral, [address], [place], [address] . tel:[phone] PREVENTATIVE -NEW: 40-64 [facility], [address], [place], [place], [address] , [place] tel:[phone] [facility] Office preventive exam (chief complaint) Body mass index [BMI] 25.0-25.9, adultEncounter for general adult medical examination without abnormal findingsDiabetic polyneuropathy associated with type 2 diabetes mellitus 3 Misha Carlson. [address], [place], [place], [address], [place]. tel:[phone] Referring Provider: Aldo Cabral, [address], [place], [address] . tel:[phone] Family History Family Member Type Diagnosis Age At Onset Mother Problem Diabetes mellitus Father Problem Hypertension Mother Problem Hypertension Payers Payer name Insurance type Covered libertarian ID Varshaalberto caruso(s) [employer] NAP [id number] Social History Type Description Quantity Date Captured Comments Alcohol Use Details Unknown Caffeine Use Details Unknown Tobacco Use Status No Information Smoking Status No Information Sex Male Sexual Orientation Straight or heterosexual Gender Identity Male Chief Complaint And Reason For Visit No Information Reason For Referral Reason For Referral No Information Plan Of Treatment Date Type Action Status Goal Dietary manageme nt education, guidance, and counseling completed Goal Dietary manageme nt education, guidance, and counseling completed Goal Dietary manageme nt education, guidance, and counseling completed Referral Referred To: Alli Castro MD [address] [facility]
[place], [phone] Ordered: Referrals: *[facility]. Alli Castro MD. Diagnostic testing ordered Patient Education High Cholesterol: Care Instructions completed History Of Present Illness Encounter Date Complaint History Of Prese nt Illness Chronic Conditions *See Chronic Conditions HPI Comments: States his girlfriend and neighbor recommended he get PSA. Would like to have done. No issues with urination. No FH prostate CA. Chronic Conditions preventive exam Men's preventive visit. Patient is on a high calorie diet. The patient has no weight gain/loss. Marital status: Single. Concern(s)/Requests Detail: Here for PE. Has history of DM (complains of tingling in feet) for which he took metformin. This gave him diarrhea so he stopped taking and did not return to prior PCP as felt he did not listen to his concern. No current DM treatment, not really watching diet. Relevant history is positive for alcohol use. Relevant history is negative for tobacco use, passive smoke exposure, passive vaping exposure. Functional Status Date Functional Assessmen t No Information Instructions Date Instruction Additional Infor mation START Rosuvastatin 20mg once jarrod ly Related to Hyperlipidemia, unspecified START Mounjaro 2.5mg once weekly for 4 weeks, then increase to 5mg once weekly. Return to office in 2 months to discuss medication effectiveness and to determine if dosing needs to be adjusted. Contact office for any questions of concerns you have with new medication. Please call to schedule annual dilated eye exam. Related to Type 2 diabetes mellitus with diabetic polyneuropathy START Pantoprazole 4 0mg once daily every morning before breakfast. Schedule follow up appointment with Dr. Cabral in 3 months; August 2024. Related to Gastro-esophageal reflux disease without esophagitis Dietary management e ducation, guidance, and counseling Related to Body mass index (BMI) 26.0-26.9, adult Check PSA Related to Prost ate cancer screening Encourage healthy diet and exerc ise. Related to Body mass index [BMI] 25.0-25.9, adult Resend glipizide. Fo llow diabetic diet. Recheck a1c, microalbumin. Try to get eye exam from [facility] Check feet daily and do not go barefoot. You need to protect your feet: Wear socks and shoes at all times, even at home Choose flat and comfortable shoes. Wear shoes with closed toes and closed heels. Wash your feet each day, this includes between your toes. Put lotion on the top and bottom of your feet, but not between your toes. Look for small cuts or scratches. If you think you have a foot infection or something is not healing, call us at [phone] right away. Related to Type 2 diabetes mellitus with diabetic polyneuropathy Stop famotidine. Ely nge to omeprazole. Avoid trigger foods such as tomato products, onions, mints, caffeinated foods and drinks. Try not to lie down after eating. Related to Gastro-esophageal reflux disease without esophagitis continue atorvastati n. I encourage you to follow a low fat, low cholesterol diet. Related to Hyperlipidemia, unspecified Dietary management e ducation, guidance, and counseling Related to Body mass index (BMI) 25.0-25.9, adult Handout Giving encouragement to exercise Related to Body mass index (BMI) 25.0-25.9, adult Will check A1c, urin e micro, cmp, lipid. Discuss starting a different medication once labs back. Get copy of recent eye exam Check feet daily and do not go barefoot. You need to protect your feet: Wear socks and shoes at all times, even at home Choose flat and comfortable shoes. Wear shoes with closed toes and closed heels. Wash your feet each day, this includes between your toes. Put lotion on the top and bottom of your feet, but not between your toes. Look for small cuts or scratches. If you think you have a foot infection or something is not healing, call us at [phone] right away. Related to Diabetic polyneuropathy associated with type 2 diabetes mellitus Encourage healthy diet and exerc ise. Related to Body mass index [BMI] 25.0-25.9, adult Patient advised to m aintain a healthy, balanced diet. Patient advised to maintain a regular cardiovascular exercise program by exercising 3-5 times per week for 30-45 minutes each time. Recommend see dentist every 6 months. Get copy of eye exam from last weekcheck CMP, lipid, A1c, urine protein Related to Encounter for general adult medical examination without abnormal findings Dietary management e ducation, guidance, and counseling Related to Body mass index (BMI) 25.0-25.9, adult Diabetic diet Giving encouragement to exercise Related to Body mass index (BMI) 25.0-25.9, adult Assessments Type Assessment Date No Information Patient Care Teams Name Effective Dates (start - stop) Status Members No Information
--- OUTSIDE RECORDS SUMMARY | 2024-11-25 03:31 | XMS_ITS | Clinical Summary ---
Author Organization [facility] [employer] Address [address] [facility] [place] [address] Care Team Providers Care Flow Trader Name Role Phone Mar Cabral MD Primary Care Provider [phone] Source Comments [facility] [employer],non-owned Affiliates and Associated Physician Practices is amultiple site organization consisting of ambulatory clinics and hospital sitesin [place], [place], [place] and [place]. This disclosure is being madepursuant to the Care Everywhere program and may not contain all information available regarding this patient. Last updated 18.[employer] Allergies No known active allergies Medications * Be aware that medications may not be up to date on this document. Alwaysverify current medications with the patient. Medication Sig Dispensed Refills Start Date End Date Status pantoprazole EC (Protonix) 40 MG tablet TAKE 1 TABLET BY MOUTH ONCE DAILY 90 tablet 1 05/21/2024 05/21/2025 Active tirzepatide (Mounjaro) 2.5 MG/0.5ML injection INJECT 2.5MG SUBCUTANEOUSLY ONCE WEEKLY FOR 4 WEEKS 2 mL 05/21/2024 05/21/2025 Active rosuvastatin (Crestor) 20 MG tablet TAKE 1 TABLET BY MOUTH ONCE DAILY 90 tablet 1 05/21/2024 05/21/2025 Active Social History Tobacco Use Types Packs/Day Years Used Date Smoking Tobacco: Never Smokeless Tobacco: Never Tobacco Cessation:Counseling Given: Not Answered Alcohol Use Standard Drinks/Week Comments Not Currently 0 (1 standard drink = 0.6 oz pur e alcohol) Sex and Gender Information Value Date Recorded Sex Assigned at Not on file Gender Identity Not on file Sexual Orientation Not on file Last Filed Vital Signs Vital Sign Reading Time Taken Comments Blood Pressure 98/66 05/03/2023 9:25 AM CDT Pulse 85 05/03/2023 9:42 AM CDT Temperature 36.6 C (97.9 F) 05/03/2023 9:25 AM CDT Respiratory Rate 17 05/03/2023 9:42 AM CDT Oxygen Saturation 100% 05/03/2023 9:42 AM CDT Inhaled Oxygen Concentration - - Weight 81.6 kg (180 lb) 05/03/2023 8:36 AM CDT Height 180.3 cm (5' 11 ) 05/03/2023 8:36 AM CDT Body Mass Index 25.1 05/03/2023 8:36 AM CDT Plan of Treatment Health Maintenance Due Date Last Done Comments COLOGUARD (AGES 45-75) - COL ON CA SCREENING 1972 CT COLONOGRAPHY - COLON CA SCREENING 1972 FIT - COLON CA SCREENING 1972 FLEX SIG - COLON CA SCREENING 1972 HIV SCREENING 1987 HEPATITIS C SCREENING 10/07/1990 DTAP/TDAP/TD VACCINES (1 - Tdap) 1991 HEPATITIS B VACCINE (1 of 3 - 19+ 3-dose series) 1991 PNEUMOCOCCAL VACCINE 50+ (1 of 1 - PCV) 2022 ZOSTER VACCINE (1 of 2) 2022 COVID-19 VACCINE (1 - 2023-2 5 season) 2024 INFLUENZA VACCINE (#1) 2024 DEPRESSION SCREENING 09/09/2024 COLON MONITORING 05/03/2033 05/03/2023, 05/03/2023 COLONOSCOPY - COLON CA SCREENING 05/03/2033 05/03/2023, 05/03/2023 Colorectal Cancer Screening 05/03/2033 HIB VACCINE Aged Out No longer eligi ble based on patient's age to complete this topic HPV VACCINE Aged Out No longer eligi ble based on patient's age to complete this topic MENINGOCOCCAL (Group B) VACCINE SHARED DECISION-MAKING Aged Out No longer eligible based on patient's age to complete this topic MENINGOCOCCAL GROUPS A/C/Y/W VACCINE Aged Out No longer eligible b ased on patient's age to complete this topic PNEUMOCOCCAL VACCINE Aged Out No long er eligible based on patient's age to complete this topic Procedures Procedure Name Priority Date/Time Associated Diagnosis Comments ENDOSCOPY, COLON, SCREENING Routine 05/03/2023 9:02 AM CDT from Last 3 Months or Most Recently Relevant to Health Maintenance Results * ENDOSCOPY, COLON, SCREENING (05/03/2023 9:02 AM CDT) Report Endoscopy POC _ Patient Name: Cristofer Farnsworth Procedure Date: 05/03/2023 9:02 AM Date of : 1970 Admit Type: Outpatient Age: 52 Gender: Male Attending MD: Catherine Buchanan DO, [id number] _ Procedure: Colonoscopy Indications: Screening for colorectal malignant neoplasm Providers: Catherine Buchanan DO (Doctor) Referring MD: Mar Cabral MD (Referring MD) Medicines: See the Anesthesia note for documentation of the administered medications Complications: No immediate complications. _ Estimated Blood Loss: Estimated blood loss: none. Procedure: Pre-Anesthesia Assessment: - Prior to the procedure, a History and Physical was performed, and patient medications and allergies were reviewed. The patient's tolerance of previous anesthesia was also reviewed. The risks and benefits of the procedure and the sedation options and risks were discussed with the patient. All questions were answered, and informed consent was obtained. Prior Anticoagulants: The patient has taken no anticoagulant or antiplatelet agents. ASA Grade Assessment: II - A patient with mild systemic disease. After reviewing the risks and benefits, the patient was deemed in satisfactory condition to undergo the procedure. After I obtained informed consent, the scope was passed under direct vision. Throughout the procedure, the patient's blood pressure, pulse, and oxygen saturations were monitored continuously. The Colonoscope was introduced through the anus and advanced to the terminal ileum. The colonoscopy was performed without difficulty. The patient tolerated the procedure well. The quality of the bowel preparation was good. The terminal ileum, ileocecal valve, appendiceal orifice, and rectum were photographed. Findings: A few small-mouthed diverticula were found in the sigmoid colon. Internal hemorrhoids were found during retroflexion. The hemorrhoids were mild. _ Impression: - Diverticulosis in the sigmoid colon. - Internal hemorrhoids. - No specimens collected. Recommendation: - Patient has a contact number available for emergencies. The signs and symptoms of potential delayed complications were discussed with the patient. Return to normal activities tomorrow. Written discharge instructions were provided to the patient. - Resume previous diet. - Continue present medications. - Repeat colonoscopy in 10 years for surveillance. Procedure Code(s): --- Professional --- G0121, Colorectal cancer screening; colonoscopy on individual not meeting criteria for high risk --- Technical --- G0121, Colorectal cancer screening; colonoscopy on individual not meeting criteria for high risk Diagnosis Code(s): --- Professional --- Z12.11, Encounter for screening for malignant neoplasm of colon K64.8, Other hemorrhoids K57.30, Diverticulosis of large intestine without perforation or abscess without bleeding --- Technical --- Z12.11, Encounter for screening for malignant neoplasm of colon K64.8, Other hemorrhoids K57.30, Diverticulosis of large intestine without perforation or abscess without bleeding CPT copyright 2020 [employer]. All rights reserved. The codes documented in this report are preliminary and upon laundry operator wash room review may be revised to meet current compliance requirements. ___ Catherine Buchanan DO 05/03/2023 9:25:27 AM This report has been signed electronically. Number of Addenda: 0 Note Initiated On: 05/03/2023 9:02 AM [facility] 05/03/2023 9:02 AM CDT Catherine Buchanan DO GI PROCEDURE ORDERAB LES Performing Organization Address City/State/[facility] Co de Phone Number [facility] [place] [address] from Last 3 Months or Most Recently Relevant to Health Maintenance Care Teams Flow Trader Relationship Specialty Start Date End Date Mar Cabral MD [address] [place] [address] PCP - General Family Medicine 05/03/23
--- OUTSIDE RECORDS SUMMARY | 2024-11-25 03:31 | XMS_ITS | Continuity of Care Document ---
Author Organization [facility] Address [address] [place] [address] Phone Care Team Providers Care Fruit And Vegetable Inspector Name Role Phone Unavailable Unavailable Unavailable Allergies, Adverse Reactions, Alerts Substance Reaction Status Criticality No Known Allergies Active No Inform ation Medications Medication Instructions Dosage Effective Dates (start - stop) Status Comments Bactrim DS 800 mg-160 mg tablet take 1 tablet by oral route every 12 hours 1.00 tablet - Active aspirin 81 mg tablet,delayed release take 1 tablet by oral route every day 81 MG - Active atorvastatin 20 mg tablet take 1 tablet by oral route every day 20 MG - Active glipizide 5 mg-metformin 500 mg tablet take 1 tablet by oral route 2 times every day with morning and evening meals 1 tablet - Active Procedures Procedure Date Dental Panoramic Radiographic Image Dental Bitewings Radiographic, Two Image s Comprehensive Oral Evaluation 7 Immun admin-adult or WO counseling - [facility] vaccine/toxoid TDAP VACCINE 7 YR + IM OFFICE/OUTPATIENT VISIT, EST HEMOGLOBIN; GLYCOSYLATED (A1C) 17 OFFICE/OUTPATIENT VISIT, NEW Alcohol and/or drug screening 7 BLOOD COUNT; COMPLETE (CBC), AUTOMATED D IFF COMPRE METAB PANEL LIPID PANEL THYROID STIMULATING HORMONE (TSH) HEMOGLOBIN; GLYCOSYLATED (A1C) 17 BLOOD COUNT; COMPLETE (CBC), AUTOMATED (HGB, HCT, RBC, WBC AND PLATELET COUNT) ANTIBODY; HIV-1 AND HIV-2, SINGLE ASSAY COLLECTION OF VENOUS BLOOD BY VENIPUNCTU RE OFFICE OUTPT NEW 30 MIN N.GONORRHOEAE, DNA, AMP PROB CHYLMD TRACH, DNA, AMP PROBE AQT HEP PANEL COMPRE METAB PANEL SYPHILIS TEST; QUALITATIVE (EG, VDRL, RP R, ART) URNLS DIP STICK/TABLET RGNT AUTO W/O MAYTE LIPID PANEL Advance Directives Directive Yes / No Effective Date File Name No Information Encounters Encounter Description Practice Location Reason(s) For Visit Diagnoses Date Provider Providers Copied on Encounter [facility], [address], [place], [place], [address] , [place] tel: [phone] [facility] No Information No Information OFFICE/OUTPA TIENT VISIT, EST [facility], [address], [place], [place], [address] , [place] tel: [phone] [facility] Diabetes (follow up) (chief complaint) Hyperlipid emia (follow up) (chief complaint) Type 2 diabetes mellitus with hyperglycemiaHyper lipidemia No Information OFFICE/OUTPA TIENT VISIT, NEW [facility], [address], [place], [place], [address] , [place] tel: [phone] [facility] Establish Care (chief complaint) Diabetes (follow up) (chief complaint) Type 2 diabetes mellitus with hyperglycemiaEncou nter for general adult medical examination with abnormal findingsEncounter for immunizationEncoun ter for screening for other disorderHyperlipid emia 7 No Information OFFICE OUTPT NEW 30 MIN [facility], [address], [place], [place], [address] , [place] tel: [phone] [facility] MALAISE AND FATIGUE NECHIGH-RISK SEXUAL BEHAVRGENERAL MEDICAL EXAM NOS 9 No Information Family History Family Member Type Diagnosis Age At Onset No Information Immunizations Vaccine Date Status Comments Tdap administered Source: New Imm unization Record Payers Payer name Insurance type Covered libertarian ID Authoriza tion(s) No Information Social History Type Description Quantity Date Captured Comments Sex Male Smoking Status No Information Chief Complaint And Reason For Visit No Information Reason For Referral Reason For Referral No Information History Of Present Illness Encounter Date Complaint History Of Prese nt Illness Diabetes (follow up) Hyperlipidemia (follow up) Diabetes (follow up) Establish Care Pt is a 46 yr ol d male who is a known Diabetic and NOT TAKING MEDS for 9 months came today to establish care. Functional Status Date Functional Assessmen t No Information Instructions Date Instruction Additional Infor mation No Information Assessments Type Assessment Date No Information Patient Care Teams Name Effective Dates (start - stop) Status Members No Information
[2024-11-25 04:45] LABS: Basophils Absolute Auto 0.1 K/mm3 (0.0-0.1); Basophils Percent Auto 0.6 % (0.2-1.2); Eosinophils Absolute Auto 0.1 K/mm3 (0-0.3); Eosinophils Percent Auto 0.9 % (0-4.4); Hematocrit 33.8 % (42.0-52.0); Hemoglobin 11.7 g/dL (14.0-18.0); Immature Granulocyte Absolute 0.05 K/mm3 (0.00-0.031); Immature Granulocyte Percent A 0.4 % (0-0.5); Lymphocytes Absolute Auto 2.05 K/mm3 (0.9-3.2); Lymphocytes Percent Auto 17.7 % (18.3-44.2); Mean Corpuscular HGB Conc 34.6 g/dl (32-36); Mean Corpuscular Hemoglobin 26.8 pg (26-34); Mean Corpuscular Volume 77.5 fl (80-100); Mean Platelet Volume 10.3 fl (7.4-10.4); Monocytes Absolute Auto 1.1 K/mm3 (0.1-0.6); Monocytes Percent Auto 9.5 % (2.6-8.5); Neutrophils Absolute Auto 8.2 K/mm3 (1.3-6.7); Neutrophils Percent Auto 70.9 % (45.5-73.1); Platelet Count Result 323 k/mm3 (150-375); Red Blood Count 4.36 M/mm3 (4.6-6.20); Red Cell Distribution Width 13.4 % (11.5-14.5); White Blood Count 11.6 K/mm3 (4.5-10.0)
[2024-11-25 04:56] LABS: INR 1.1; Prothrombin Time 14.3 Seconds (11.1-14.7)
[2024-11-25 04:57] LABS: Partial Thromboplastin Time 29.3 Seconds (22.3-36.8)
[2024-11-25 04:59] LABS: Alanine Aminotransferase 17 U/L (6-50); Albumin Level 4.1 g/dL (3.5-5.1); Alkaline Phosphatase 110 U/L (38-126); Anion Gap 7 mmol/L (4-12); Aspartate Amino Transferase 21 U/L (17-59); Bilirubin,Total 0.7 mg/dL (0.2-1.3); Blood Urea Nitrogen 14 mg/dL (9-20); Calcium 9.5 mg/dL (8.4-10.2); Carbon Dioxide 27 mmol/L (22-30); Chloride 101 mmol/L (98-107); Estimated CRCL calculation 72 ml/min; Estimated Glomerular Filt Rate > 60; Glucose 189 mg/dL (65-110); Lactic Acid Reflex 0.8 mmol/L (0.7-2.0); Potassium 4.5 mmol/L (3.4-5.0); Sodium 135 mmol/L (137-145)
[2024-11-25 05:05] LABS: CRP 4.2 mg/dL (<1.0)
[2024-11-25 05:16] LABS: Procalcitonin 0.1 ng/mL
--- OUTSIDE RECORDS SUMMARY | 2024-11-25 05:19 | XMS_ITS | Continuity of Care Document ---
Author Organization [facility] Address [address] [place] [address] Phone Care Team Providers Care Energy Assistant Name Role Phone Tosin Edward Unavailable Unavailable [...] QN (URINE) CREATININE, (U-R) ROUTINE VENIPUNCTURE OFFICE [id number] BODY MASS INDEX DOCD SYST BP LT 130 MM HG DIAST BP < 80 MM HG BASIC METABOLIC PANEL(BMP) HEMOGLOBIN A1C HGA1C, GLYCO MICROALBUMIN, QN (URINE) CREATININE, (U-R) ROUTINE VENIPUNCTURE OFFICE [id number] SCREENING COLONOSCOPY (NOT HIGH RISK) Au Brief Emotional/Behavioral A ssessment, With Scoring/Doct, Per Stndrd Instrument COMPREHEN METABOLIC PANEL CMP HEMOGLOBIN A1C HGA1C, GLYCO LIPID PANEL ROUTINE VENIPUNCTURE PREVENTATIVE-NEW: 40-64 Advance Directives Directive Yes / No Effective Date File Name No Information Encounters Encounter Description Practice Location Reason(s) For Visit Diagnoses Date Provider Providers Copied on Encounter [facility], [address], [place], [place], [address] , tel:[phone] [facility] No Information 4 Kashmir Leahy. [address], [place], [place], [address], [place]. tel:[phone] [id number], [address], [place], [place], [address] , [phone] [facility] Chronic Conditions (chief complaint) Type 2 diabetes mellitus with diabetic polyneuropathyHyper lipidemia, unspecifiedGastro-e sophageal reflux disease without esophagitisBody mass index [BMI] 26.0-26.9, adult May- 4 Kashmir Leahy. [address], [place], [place], [address], [place]. tel:[phone] Referring Provider: Aldo Cabral, [address], [place], [address] . tel:[phone] [facility]ICE [id number], [address], [place], [place], [address] , [place] [phone] [facility] Chronic Conditions (chief complaint) Body mass index [BMI] 25.0-25.9, adultType 2 diabetes mellitus with diabetic polyneuropathyHyper lipidemia, unspecifiedGastro-e sophageal reflux disease without esophagitisProstate cancer screening 3 Misha Carlson. [address], [place], [place], [address], [place]. tel:[phone] Referring Provider: Aldo Cabral, [address], [place], [address] . tel:[phone] [facility], [address], [place], [place], [address] , [place] tel:[phone] [facility] No Information 3 Dewayne Alexander. [address] [facility], [address], [place], [place], [address], [place]. tel:[phone] Referring Provider: Aldo Cabral, [address], [place], [address] . tel:[phone] PREVENTATIVE -NEW: 40-64 [facility], [address], [place], [place], [address] , [place] tel:[phone] [facility] preventive exam (chief complaint) Body mass index [BMI] 25.0-25.9, adultEncounter for general adult medical examination without abnormal findingsDiabetic polyneuropathy associated with type 2 diabetes mellitus 3 Misha Carlson. [address], [place], [place], [address], [place]. tel:[phone] Referring Provider: Aldo Cabral, [address], [place], [address] . tel:[phone] Family History Family Member Type Diagnosis Age At Onset Mother Problem Diabetes mellitus Father Problem Hypertension Mother Problem Hypertension Payers Payer name Insurance type Covered green party ID Varshaalberto caruso(s) [employer] NAP [id number] Social History Type Description Quantity Date Captured [...] Referred To: Alli Castro MD [address] [facility]
ELIO Gómez, [id number] Ordered: Referrals: *[facility]. Alli Castro MD. [...] microalbumin. Try to get eye exam from [facility] Check feet daily and do not go [...] something is not healing, call us at [phone] right away. Related to Type 2 diabetes [...] something is not healing, call us at [phone] right away. Related to Diabetic polyneuropathy associated [...]
--- OUTSIDE RECORDS SUMMARY | 2024-11-25 05:19 | XMS_ITS | Clinical Summary ---
Author Organization [facility] Address [address] [facility] [place] [address] Care Team Providers Care Border Machine Operator Name Role Phone Mar Cabral MD Primary Care Provider [phone] Source Comments [facility],non-owned Affiliates and Associated Physician Practices is amultiple site organization consisting of ambulatory clinics and hospital sitesin [place], [place], [place] and [place]. This disclosure is being madepursuant to the Care Everywhere program and may not contain all information available regarding this patient. Last updated 18.Room [facility] Allergies No known active allergies Medications * [...] Gender: Male Attending MD: Catherine Buchanan DO, [id number] _ Procedure: Colonoscopy Indications: Screening for colorectal [...] or abscess without bleeding CPT copyright 2020 [employer]. All rights reserved. The codes documented in this report are preliminary and upon death surveys coder review may be revised to meet current compliance requirements. ___ Catherine Bcuhanan DO 05/03/2023 9:25:27 AM This report has been signed electronically. Number of Addenda: 0 Note Initiated On: 05/03/2023 9:02 AM [facility] 05/03/2023 9:02 AM CDT Catherine Buchanan DO GI PROCEDURE ORDERAB LES Performing Organization Address City/State/[facility] Co de Phone Number [facility] [place] [address] from Last 3 Months or Most Recently Relevant to Health Maintenance Care Teams Border Machine Operator Relationship Specialty Start Date End Date Mar Cabral MD [address] [place] [address] PCP - General Family Medicine 05/03/23
--- OUTSIDE RECORDS SUMMARY | 2024-11-25 05:19 | XMS_ITS | Continuity of Care Document ---
Author Organization [facility] Address [address] [place] [address] Phone Care Team Providers Care Eap Counselor Name Role Phone Unavailable Unavailable Unavailable Allergies, [...] 7 Immun admin-adult or WO counseling - fir st vaccine/toxoid TDAP VACCINE 7 YR + IM OFFICE/OUTPATIENT VISIT, EST HEMOGLOBIN; GLYCOSYLATED (A1C) 17 OFFICE/OUTPATIENT VISIT, NEW Alcohol and/or drug screening 7 BLOOD COUNT; COMPLETE (CBC), AUTOMATED D IFF COMPRE METAB PANEL LIPID PANEL THYROID STIMULATING HORMONE (TSH) HEMOGLOBIN; GLYCOSYLATED (A1C) 17 LIPID PANEL URNLS DIP STICK/TABLET RGNT AUTO W/O MAYTE SYPHILIS TEST; QUALITATIVE (EG, VDRL, RP R, ART) COMPRE METAB PANEL AQT HEP PANEL CHYLMD TRACH, DNA, AMP PROBE N.GONORRHOEAE, DNA, AMP PROB OFFICE OUTPT NEW 30 MIN COLLECTION OF VENOUS BLOOD BY VENIPUNCTU RE ANTIBODY; HIV-1 AND HIV-2, SINGLE ASSAY BLOOD COUNT; COMPLETE (CBC), AUTOMATED (HGB, HCT, RBC, WBC AND PLATELET COUNT) Advance Directives Directive Yes / No Effective Date File Name No Information Encounters Encounter Description Practice Location Reason(s) For Visit Diagnoses Date Provider Providers Copied on Encounter [facility], [address], [place], [place], [address] , [place] tel: [phone] [facility] No Information No Information OFFICE/OUTPA TIENT VISIT, EST [facility], [address], [place], [place], [address] , [place] tel: [phone] [facility] Diabetes (follow up) (chief complaint) Hyperlipid emia (follow up) (chief complaint) Type 2 diabetes mellitus with hyperglycemiaHyper lipidemia No Information OFFICE/OUTPA TIENT VISIT, NEW [facility], [address], [place], [place], [address] , [place] tel: [phone] [facility] Establish Care (chief complaint) Diabetes (follow up) (chief complaint) Type 2 diabetes mellitus with hyperglycemiaEncou nter for general adult medical examination with abnormal findingsEncounter for immunizationEncoun ter for screening for other disorderHyperlipid emia 7 No Information OFFICE OUTPT NEW 30 MIN [facility], [address], [place], [place], [address] , [place] tel: [phone] [facility] MALAISE AND FATIGUE NECHIGH-RISK SEXUAL BEHAVRGENERAL MEDICAL EXAM NOS 9 No Information Family History Family Member Type Diagnosis Age At Onset No Information Immunizations Vaccine Date Status Comments Tdap administered Source: New Imm unization Record Payers Payer name Insurance type Covered democrat ID Authoriza tion(s) No Information Social History [...]
[2024-11-25 05:23] LABS: Erythrocyte Sedimentation Rate 100 mm/hr (0-20)
--- NOTE | 2024-11-25 05:41 | ED.GENADULT ---
HPI - General Adult General Chief complaint: Extremity Problem,Nontraumatic Stated complaint: Blisters on L foot Time Seen by Provider: 11/25/24 04:17 History of Present Illness HPI narrative: Patient is a 54-year-old gentleman presents emergency department chief complaint of blisters on the left foot. Patient has prior history of osteomyelitis on the right foot and had a amputation of his 2nd toe on the right foot the patient reports that over the last week he has noticed that there has been redness and ulcerations present on the left foot now patient reports no fever reports no purulent drainage reports that he wanted to catch this foot before it turned into what his other foot did. Related Data Allergies Allergy/AdvReac Type Severity Reaction Status Date / Time No Known Allergies Allergy Verified 11/25/24 03:30 Review of Systems Review of Systems: A 10 system review of systems was completed on the patient and is negative except for what is stated in the HPI. Nursing and ancillary documentation was reviewed. [facility] Past Medical History Medical History Erectile dysfunction associated with type 2 diabetes mellitus Full dentures Type 2 diabetes mellitus Diabetic neuropathy Surgical History Surgical History History of amputation of toe R foot 2nd toe ray amputation, I&D R 1st toe abscess 06/25/24 Tevin Briscoe, Status post open reduction with internal fixation of fracture Right Tibial fracture Family History Family History Mother , At age 74 Diabetes mellitus Father Age older than 80 years Social History Social History Social History: Patient lives in his own home. He is engaged. He is a lifelong nonsmoker. He does drink approximately 2 alcoholic beverages a week. He used to smoke marijuana but has not done so in many years. 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 He has 4 adult daughters and several grandchildren. Code status: Full code Surrogate decision maker: [facility]) Smoking status: Never smoker Alcohol intake: current Drinks per week: 2 Substance use: former Substance use type: marijuana Do You Feel Safe in your Home?: Yes Lack of Transportation: No Lack of Food: Never True Current Housing: I Have Housing Concerned About Future Housing: No Difficulty Paying Gas/Electric Bills: No Difficulty Paying for Meds: No Currently Unemployed: No Education: High School Diploma/GED Difficulty w/ Childcare or Family Care: No Spiritual care concerns: No Exam Narrative: GENERAL: Well-appearing, well-nourished, and in no acute distress. HEAD: Normocephalic, atraumatic. EYES: PERRLA and EOMI. ENT: Nares clear, no rhinorrhea or epistaxis. Mucous membranes moist. NECK: Supple. CHEST: Clear to auscultation. No respiratory distress. HEART: Regular rate and rhythm. No murmur heard. Normal peripheral pulses. ABDOMEN: Soft, nontender, nondistended, normal active bowel sounds. EXTREMITIES: Normal range of motion. No edema. SKIN: Warm, dry, no rash. Ulcerations present to the plantar aspect of the left foot there is an ulceration to the dorsum of the left foot there is no purulent drainage intact bounding dorsalis pedis pulse NEURO: No focal deficits. Alert and oriented x3. PSYCH: Normal mood and affect. Course Vital Signs Vital signs: Vital Signs Temperature 36.9 C 11/25/24 06:27 Pulse Rate 83 11/25/24 06:27 Respiratory Rate 14 11/25/24 06:27 Blood Pressure 131/79 11/25/24 06:27 Pulse Oximetry 99 11/25/24 06:27 Temperature 36.9 C 11/25/24 06:27 Pulse Rate 94 11/25/24 07:02 Respiratory Rate 18 11/25/24 07:02 Blood Pressure 143/90 H 11/25/24 07:02 Pulse Oximetry 99 11/25/24 07:02 Medical Decision Making [facility] Narrative Medical decision making narrative: Differential diagnosis includes cellulitis, abscess, osteomyelitis, necrotizing fasciitis Patient has no evidence of soft tissue gas has good bounding pulses Laboratory studies were obtained which showed a white blood cell count of 11.6 electrolytes are within normal limits CRP was 4.2 sed rate was 100 procalcitonin 0.1 blood cultures were obtained CT scan of the foot and plain film x-rays were obtained that showed no soft tissue gas no evidence of osteomyelitis and no appreciable abscess. The patient was started on cefepime vanc and Flagyl the case was discussed with the hospitalist Vital Signs Vital Signs: Vital Signs Temperature 36.9 C 11/25/24 06:27 Pulse Rate 83 11/25/24 06:27 Respiratory Rate 14 11/25/24 06:27 Blood Pressure 131/79 11/25/24 06:27 Pulse Oximetry 99 11/25/24 06:27 Temperature 36.9 C 11/25/24 06:27 Pulse Rate 94 11/25/24 07:02 Respiratory Rate 18 11/25/24 07:02 Blood Pressure 143/90 H 11/25/24 07:02 Pulse Oximetry 99 11/25/24 07:02 Lab Data 11/25/24 04:29 11/25/24 04:29 Labs: Lab Results 11/25/24 Range/Units 04:29 WBC 11.6 H (4.5-10.0) K/mm3 RBC 4.36 L (4.6-6.20) M/mm3 Hgb 11.7 L (14.0-18.0) g/dL Hct 33.8 L (42.0-52.0) % MCV 77.5 L (80-100) fl MCH 26.8 (26-34) pg MCHC 34.6 (32-36) g/dl RDW 13.4 (11.5-14.5) % Plt Count 323 (150-375) k/mm3 MPV 10.3 (7.4-10.4) fl Immature Gran % (Auto) 0.4 (0-0.5) % Neut % (Auto) 70.9 (45.5-73.1) % Lymph % (Auto) 17.7 L (18.3-44.2) % [place] % (Auto) 9.5 H (2.6-8.5) % Eos % (Auto) 0.9 (0-4.4) % Baso % (Auto) 0.6 (0.2-1.2) % Lymph # (Auto) 2.05 (0.9-3.2) K/mm3 [place] # (Auto) 1.1 H (0.1-0.6) K/mm3 Eos # (Auto) 0.1 (0-0.3) K/mm3 Baso # (Auto) 0.1 (0.0-0.1) K/mm3 Abs Immat Gran (auto) 0.05 H (0.00-0.031) K/mm3 Absolute Neuts (auto) 8.2 H (1.3-6.7) K/mm3 Absolute Nucleated RBC 0.000 (0.0-0.012) K/mm3 Nucleated RBC % 0.0 (0.0-0.2) % ESR 100 H (0-20) mm/hr PT 14.3 (11.1-14.7) Seconds INR 1.1 APTT 29.3 (22.3-36.8) Seconds Sodium 135 L (137-145) mmol/L Potassium 4.5 (3.4-5.0) mmol/L Chloride 101 (98-107) mmol/L Carbon Dioxide 27 (22-30) mmol/L Anion Gap 7 (4-12) mmol/L BUN 14 D (9-20) mg/dL Creatinine 1.13 (0.7-1.3) mg/dL Estim Creat Clear Calc 72 ml/min Estimated GFR > 60 (59 - ) Glucose 189 H (65-110) mg/dL Lactic Acid 0.8 (0.7-2.0) mmol/L Calcium 9.5 (8.4-10.2) mg/dL Total Bilirubin 0.7 (0.2-1.3) mg/dL AST 21 (17-59) U/L ALT 17 (6-50) U/L Alkaline Phosphatase 110 (38-126) U/L C-Reactive Protein 4.2 H (<1.0) mg/dL Total Protein 8.0 (6.3-8.2) g/dL Albumin 4.1 (3.5-5.1) g/dL Procalcitonin 0.1 ng/mL Discharge Plan Discharge Clinical Impression: Cellulitis of foot, left, Diabetic ulcer of ankle associated with diabetes mellitus due to underlying condition Patient Disposition: Still a Patient Condition: Stable Time of Disposition: 07:07
[2024-11-25 06:27] VITALS: BP 131/79; PULSE 83; RESP 14; TEMP 36.9; O2SAT 99
[2024-11-25] MEDS: CEFEPIME 2 GM/NS 50 ML 2 GM/50 ML BAG IVPB (06:38)
[2024-11-25 07:02] VITALS: BP 143/90; PULSE 94; RESP 18; O2SAT 99
[2024-11-25] MEDS: metroNIDAZOLE 500 MG/ISO 100ML 500 MG/100 ML BAG 100 MG IVPB ×2 (07:22→15:14)
[2024-11-25 07:31] VITALS: BP 143/90; PULSE 94; RESP 18; O2SAT 99
--- NOTE | 2024-11-25 08:09 | P.HP_ITS ---
H&P: HPI History of Present Illness Date/Time: 11/25/24 08:09 Chief Complaint: Blisters on left foot Narrative: 54 year old male with past medical history of diabetes with associated diabetic peripheral neuropathy and hypertension who presented to the hospital with worsening left diabetic foot wound. 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 Briscoe. He states approximately 2 weeks ago had skin peeling after removing his sock from his left foot. Then 2-3 days later large blisters started to appear. He states that the one on the top of his ankle area appeared first then the two on his toes then the two on the bottom of his foot. He att empted using a cream that he believes was Silvadene however the blisters continued to worsen. The blisters then began to pop, all had clear discharge besides the ones on the bottom of his foot. He states that the ulcers on the bottom of his foot has a yellow pus like drainage. He notes there was slight pressure like pain is relation to the blisters/ulcerations. He denies any injuries to the foot. He also denies redness/warmth to the area, fever, chills, night sweats. He states the tingling and numbness to his bilateral lower extremities has been unchanged from baseline. Patient noted to be slightly hypertension on admission. He states that he ran out of the medications (Jardiance 10 mg daily and losartan 50 mg daily) after being discharged as he is in between PCPs at this time. He states that while on these medications his blood pressure had improved and he had less bilateral lower extremity swelling. He has an appointment with a new PCP on December 29. Patient has no other complaints denying chest pain, shortness of breath, palpitations, nausea/vomiting and abdominal pain. ED workup: Vitals stable. CBC with WBC 11.6, H/H 11.7/33.8, and PLT 323. CMP with Na 135, K 4.5. BUN/Cr 14/1.13 with GFR > 60. Glucose 189. LFTs WNL. CRP 4.2. ESR 100. Procal 0.1. Foot XR: No osseous or articular abnormality. Soft tissue ulcer to plantar aspect fo the midfoot. Foot CT: Shallow soft tissue ul cer to plantar aspect of the midfoot with probable surrounding cellulitis. No abscess. No evidence for osteomyelitis Review of Systems Review of Systems: All systems reviewed & are unremarkable except as noted in HPI and below PMFSH Past Medical History Medical History Erectile dysfunction associated with type 2 diabetes mellitus Full dentures Type 2 diabetes mellitus Diabetic neuropathy Surgical History Surgical History (Updated 11/25/24 @ 15:57 by FAWN Metzger) History of amputation of toe R foot 2nd toe ray amputation, I&D R 1st toe abscess 06/25/24 Tevin Briscoe, Status post open reduction with internal fixation of fracture Right Tibial fracture Family History Family History Mother , At age 74 Diabetes mellitus Father Age older than 80 years Social History Social History (Updated 11/25/24 @ 15:57 by Keshia Nunez PA-C) Social History: Patient lives in his own home with girlfriend and her daughter. He is engaged. He is a lifelong nonsmoker. He does drink approximately 2 alcoholic beverages a week. He used to smoke marijuana but has not done so in many years. 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 He has 4 adult daughters and several grandchildren. Code status: Full code Surrogate decision maker: Dario benavides) Smoking status: Never smoker Alcohol intake: current Drinks per week: 2 Substance use: former Substance use type: marijuana Do You Feel Safe in your Home?: Yes Lack of Transportation: No Lack of Food: Never True Current Housing: I Have Housing Concerned About Future Housing: No Difficulty Paying Gas/Electric Bills: No Difficulty Paying for Meds: No Currently Unemployed: No Education: High School Diploma/GED Difficulty w/ Childcare or Family Care: No Spiritual care concerns: No Meds Home Medications and Allergies Home Medications ?Medication ?Instructions ?Recorded ?Confirmed ?Type blood sugar diagnostic (OneTouch #1 pkg 07/02/24 11/25/24 Rx Verio test strips) blood-glucose meter (OneTouch #1 pkg 07/02/24 11/25/24 Rx Verio Flex Meter) insulin glargine 100 unit/mL (3 10 unit (0.1 mL) subcut HS #15 mL 07/02/24 11/25/24 Rx mL) subcutaneous pen lancets 30 gauge (Erwin Delica #1 pkg 07/02/24 11/25/24 Rx Plus Lancet) metformin 500 mg tablet 250 mg (1/2 x 500 mg) PO BIDWMEAL 07/02/24 11/25/24 Rx #60 tabs pen needle, diabetic 32 gauge x #1 pkg 07/02/24 11/25/24 Rx 5/32 (BD Ultra-Fine Cristin Pen Needle) Allergies Allergy/AdvReac Type Severity Reaction Status Date / Time No Known Allergies Allergy Verified 11/25/24 03:30 Vital Signs Vital Signs - 24 hr 11/25/24 06:27 11/25/24 07:02 11/25/24 07:31 Temperature 98.5 F Pulse Rate 83 94 94 Respiratory Rate 14 18 18 Blood Pressure 131/79 143/90 H 143/90 H Pulse Oximetry 99 99 99 Exam Narrative: AF HR 92 RR 16 SPO2 100 BP 113/76 General: male in no acute respiratory distress who is nontoxic appearing, lying semi recumbent in bed. HEENT: Normocephalic. Atraumatic. Extraocular movement intact. Sclera clear and anicteric. No facial asymmetry. Neck: Neck was supple. No dominant adenopathy, thyromegaly or masses. Chest: Lungs are clear to auscultation bilaterally. No wheezes or crackles. CV: Heart was regular rate and rhythm. S1/S2. No murmurs, gallops, or rubs. Abd: Abdomen was soft. Nontender. Nondistended. Positive bowel sounds. No organomegaly or masses. Ext: DP pulses bilaterally. Several superficial diabetic foot ulcers to the left foot. Well healing. Without drainage. Right foot with well healing 2nd toe amputation and dry ulcer to the tip of great toe. Neuro: Patient is alert and oriented x4. Strength is 5/5 in both upper extremities. Speech is clear. Psych: Normal mood and affect. Patient is pleasant and cooperative. H&P: Results Labs Labs: Short CBC 11/25/24 Range/Units 04:29 WBC 11.6 H (4.5-10.0) K/mm3 Hgb 11.7 L (14.0-18.0) g/dL Hct 33.8 L (42.0-52.0) % Plt Count 323 (150-375) k/mm3 [facility] 11/25/24 04:29 Sodium 135 L Potassium 4.5 Chloride 101 Carbon Dioxide 27 BUN 14 D Creatinine 1.13 Glucose 189 H Calcium 9.5 Liver Function 11/25/24 Range/Units 04:29 Total Bilirubin 0.7 (0.2-1.3) mg/dL AST 21 (17-59) U/L ALT 17 (6-50) U/L Alkaline Phosphatase 110 (38-126) U/L Albumin 4.1 (3.5-5.1) g/dL Impressions Foot X-Ray 11/25/24 06:15 Impression: No osseous or articular abnormality. Soft tissue ulcer to plantar aspect of the midfoot. Foot CT 11/25/24 06:18 IMPRESSION: Shallow soft tissue ulcer to plantar aspect of the midfoot with probable surrounding cellulitis. No abscess. No evidence for osteomyelitis. 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 Briscoe. - Not meeting sepsis criteria - Antibiotics: Vanc, cefe, flagyl started on 11/25 in the ED. Spoke with ID mandy causey and will transition to Rocephin and doxy. - Blood cultures obtained on 11/25 pending - Foot XR: No osseous or articular abnormality. Soft tissue ulcer to plantar aspect fo the midfoot. - Foot CT: Shallow soft tissue ulcer to plantar aspect of the midfoot with probable surrounding cellulitis. No abscess. No evidence for osteomyelitis - Monitor vital signs, I&Os, neuro status and patient is a fall risk - Monitor serum electrolytes, CBC, cultures, WBC and temp curve - Consulted wound care - Consulted general surgery, appreciate recommendations (2) Type 2 diabetes mellitus: Code(s): E11.9 - Type 2 diabetes mellitus without complications Status: Acute Assessment and Plan: - hypoglycemia protocol - POC blood glucose ACHS - home medication - lantus 10 units and metformin 250 mg BID - correct regimen ordered - lantus 8 units (20% less than baseline given hospitalization) and SSI - A1C 8.7 on 11/25/2024 (3) Elevated blood pressure reading: Code(s): R03.0 - Elevated blood-pressure reading, without diagnosis of hypertension Status: Acute Assessment and Plan: Blood pressures slightly elevated on admission with systolics into the 140s, hwoever currently stable in the 110s. Hesitant to resume prior antihypertensives as blood pressure is stable without them at this time. On chart review patient was previously discharged on 07/02/24 on losartan 50 mg daily and Jardiance 10 mg daily Continue to monitor Quality VTE Prophylaxis VTE prophylaxis: pharmacologic ordered Hospitalist MIPS Advance Care Plan I have confirmed that the patient's Advanced Care Plan is present, code status is documented, or surrogate decision maker is listed in patient medical record.: Yes Medication Reconciliation I have utilized all available resources to obtain, update and review the patients current medications (includes all prescriptions, OTC, herbals, cannabis, and nutritional supplements).: Yes
[2024-11-25 08:16] LABS: Glucose Point of Care 186 mg/dl (65-105)
[2024-11-25 08:23] VITALS: BMI 25.1
[2024-11-25] MEDS: VANCOMYCIN 2,000 MG/NS 500 ML 2,000 MG/500 ML BAG 250 MG IVPB (08:25)
[2024-11-25 08:30] VITALS: BP 114/72; PULSE 74; RESP 18; TEMP 36.5; O2SAT 96
--- NOTE | 2024-11-25 08:30 | PC.NURSE ---
This patient, Cristofer Farnsworth Jr., was admitted to [facility] Surg Room 314-01. Patient/family oriented to hospital policies and general routines including ID bracelet, bed and alarms, visiting hours, pain management, procedures, bathroom and other care routines, personal items, smoking policy, room service/diet, and visiting hours. Information on how to activate the Rapid Response Team has been discussed. Patient/Family are encouraged to report perceived risks to care and to ask questions if they do not understand what they are told or what they should do.
[2024-11-25 10:17] LABS: Hemoglobin A1C 8.7 % (<5.7)
[2024-11-25 11:45] LABS: Glucose Point of Care 161 mg/dl (65-105)
[2024-11-25 14:00] VITALS: BP 113/76; PULSE 92; RESP 16; TEMP 36.1; O2SAT 100
--- NOTE | 2024-11-25 15:29 | P.CONGS_ITS ---
Assessment and Plan Assessment and plan (1) Diabetic ulcer of ankle associated with diabetes mellitus due to underlying condition: Code(s): E08.622 - Diabetes mellitus due to underlying condition with other skin ulcer; L97.309 - Non-pressure chronic ulcer of unspecified ankle with unspecified severity Status: Acute Assessment and Plan: * The patient has developed multiple ulcers on the left foot over the past few weeks. He has not had any trauma to the foot and reportedly has been wearing appropriate footwear. These could be a result of his uncontrolled diabetes, as well as a possible microvascular component. He has good, strong distal pulses in his left lower extremity and no signs of arterial compromise. All of his wounds on the left foot and ankle appear stable at this time. There are no signs of ongoing active infection or cellulitis of the left foot. There is some areas of firm eschar on two of the wounds, but without any fluctuance or drainage that would prompt need for debridement at this time. We would recommend to continue with local wound care with silver gel dressing changes. No indication for surgical intervention at this time. He can be discharged from our standpoint with follow-up in the wound clinic after discharge. (2) History of amputation of toe: Code(s): Z89.429 - Acquired absence of other toe(s), unspecified side Status: Resolved Assessment and Plan: * Right second toe amputation healing well. There is no signs of an infection at this time. The wound has actually come down to almost half the size as it was when he was seen in the wound clinic 2 weeks ago. Continue local wound care with silver gel dressing changes. (3) Type 2 diabetes mellitus: Code(s): E11.9 - Type 2 diabetes mellitus without complications Status: Acute (4) Elevated blood pressure reading: Code(s): R03.0 - Elevated blood-pressure reading, without diagnosis of hypertension Status: Acute Plan I have discussed the patient's case and plan of care with Dr. Li. History of Present Illness Consult details Consult date: 11/25/24 Reason for consult: other (Left foot wounds) Requesting physician: Andrew Moreland MD Narrative: This is a 54-year-old with type 2 diabetes mellitus, who underwent right second toe ray amputation in June of 2024, and we are being asked to see in surgical consultation for left foot wounds. He has been healing well from his right second toe amputation since June and recently was following in the [facility] with the wound care nurses and Dr. Briscoe. He was last seen on 11/11/2024, and at that time had no wounds on his left foot. That week, he reports wearing some dress shoes to work that were boot style with the shoe going up to the ankle and weight took his shoes off after work he noticed some peeling of his skin at the anterior ankle. He denies any trauma to his foot or ankle. He denies changing any of his foot where recently. He reports only wearing comfortable well fitted shoes. He denies ever walking outside barefoot. He reports even wearing shoes in his house. Over the last 2 weeks, he reportedly has been developing small wounds on his foot. They start as blisters and then will spontaneously drain and turn into ulcers. He actually had an appointment in the Wound Clinic this week, but noticed that 1 of the ulcers on his plantar foot had a yellow appearance that concerned him, therefore he came into the ED for evaluation early this morning. Labs in [place] [address], glucose 189, hemoglobin A1c 8.7. X-rays of the left foot showed soft tissue ulcer to the plantar aspect of the midfoot, but no osseous or articular abnormality. CT scan of the left foot with IV contrast showed shallow soft tissue ulcer to plantar aspect of the midfoot with probable surrounding cellulitis, no abscess, no evidence of osteomyelitis. He was admitted to the hospitalist service and has been started on broad-spectrum IV antibiotics. Wound Care has been consulted and started him on silver gel dressing changes. He denies any pain in his left foot. He has not noticed any drainage from his wounds. No fever or chills. Review of Systems 2 Review of Systems: All systems reviewed & are unremarkable except as noted in HPI and below PMFSH Past Medical History Medical History (Updated 11/25/24 @ 06:35 by Andrew Moreland MD) Erectile dysfunction associated with type 2 diabetes mellitus Full dentures Type 2 diabetes mellitus Diabetic neuropathy Surgical History Surgical History (Updated 11/25/24 @ 15:57 by FAWN Metzger) History of amputation of toe R foot 2nd toe ray amputation, I&D R 1st toe abscess 06/25/24 Tevin Briscoe, DO Status post open reduction with internal fixation of fracture Right Tibial fracture Family History Family History Mother , At age 74 Diabetes mellitus Father Age older than 80 years Social History Social History Social History: Patient lives in his own home with girlfriend and her daughter. He is engaged. He is a lifelong nonsmoker. He does drink approximately 2 alcoholic beverages a week. He used to smoke marijuana but has not done so in many years. 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 He has 4 adult daughters and several grandchildren. Code status: Full code Surrogate decision maker: Dario benavides) Smoking status: Never smoker Alcohol intake: current Drinks per week: 2 Substance use: former Substance use type: marijuana Do You Feel Safe in your Home?: Yes Lack of Transportation: No Lack of Food: Never True Current Housing: I Have Housing Concerned About Future Housing: No Difficulty Paying Gas/Electric Bills: No Difficulty Paying for Meds: No Currently Unemployed: No Education: High School Diploma/GED Difficulty w/ Childcare or Family Care: No Spiritual care concerns: No Meds Home Medications and Allergies Home Medications ?Medication ?Instructions ?Recorded ?Confirmed ?Type blood sugar diagnostic (OneTouch #1 pkg 07/02/24 11/25/24 Rx Verio test strips) blood-glucose meter (OneTouch #1 pkg 07/02/24 11/25/24 Rx Verio Flex Meter) insulin glargine 100 unit/mL (3 10 unit (0.1 mL) subcut HS #15 mL 07/02/24 11/25/24 Rx mL) subcutaneous pen lancets 30 gauge (OneTouch Delica #1 pkg 07/02/24 11/25/24 Rx Plus Lancet) metformin 500 mg tablet 250 mg (1/2 x 500 mg) PO BIDWMEAL 07/02/24 11/25/24 Rx #60 tabs pen needle, diabetic 32 gauge x #1 pkg 07/02/24 11/25/24 Rx 5/32 (BD Ultra-Fine Cristin Pen Needle) Allergies Allergy/AdvReac Type Severity Reaction Status Date / Time No Known Allergies Allergy Verified 11/25/24 03:30 Vital Signs Vital Signs - 24 hr 11/25/24 06:27 11/25/24 07:02 11/25/24 07:31 Temperature 98.5 F Pulse Rate 83 94 94 Respiratory Rate 14 18 18 Blood Pressure 131/79 143/90 H 143/90 H Pulse Oximetry 99 99 99 11/25/24 08:30 11/25/24 14:00 Temperature 97.7 F 96.9 F L Pulse Rate 74 92 Respiratory Rate 18 16 Blood Pressure 114/72 113/76 Pulse Oximetry 96 100 Exam 2 Const: General: comfortable and no acute distress Nutritional Appearance: a verage body habitus Orientation/consciousness: patient oriented x3 HENMT: Head: normocephalic and atraumatic Ears: hearing grossly normal bilaterally Mouth: Yes moist mucous membranes Eyes: General: appearance normal, both eyes and all related structures P upils: Equal, round and reactive pupils present Neck: Neck: normal visual inspection and full ROM Resp: Effort & Inspection: no respiratory distress Auscultation: clear to auscultation bilaterally Cardio: Rate: regular rate Rhythm: regular rhythm Peripheral pulses: P eripheral pulses 2+ throughout GI: Inspection: non-distended GI Palp: Yes Soft to palpation, No Tenderness to palpation present (GI), No Guarding due to palpation present (GI), Yes No hepatosplenomegaly present and No Rebound tenderness present Auscultation: n ormal bowel sounds Skin: General skin exam: normal color Neuro: General: moves all extremities and no focal motor deficits Speech: n ormal speech Motor exam (neuro): 5/5 motor strength present throughout Extrem: General: normal to inspection and no edema Right lower extremity: f ull ROM, normal capillary refill and foot Details: vascular exam Details: dorsalis pedis pulse present (strong) and posterior tibial pulse present Left lower extremity: full ROM and normal capillary refill Other: Right 1st toe ulcer on the distal aspect of the toe measuring 1.2 x 1.5 cm with 100% healthy pink tissue, no purulent drainage or necrotic tissue. Right 2nd toe amputation site with a smaller wound from last wound care assessment measuring 1.3 x 1.5 x 0.6 cm with 100% pink healthy tissue, no purulent drainage. No erythema or edema of the right foot. Left foot has multiple ulcers. There is an open wound over the anterior ankle that appears superficial with 50% pink/granulating tissue and 50% with a superficial firm tran eschar, no purulent drainage, no fluctuance. There are small superficial ulcers, all with 100% pink healthy wound bed, on the dorsal 3rd and 4th toes. There is a small 2 x 2 cm blister on the lateral left foot with pink-colored fluid beneath the skin, not obviously purulent in appearance and the skin is intact, no surrounding erythema or tenderness. Then there are two ulcers on the plantar foot in the midfoot, the more distal ulcer is 2 x 2 cm with 100% pink wound bed and appears superficial, the more proximal ulcer is 3 x 2 cm and 100% of the wound bed is covered by a yellow/tran eschar that is firm with no fluctuance and no drainage and no tenderness. There is no erythema or swelling of the left foot or toes. He has no tenderness in any location. He is able to wiggle all toes normally. He has diminished sensation of the toes and plantar foot consistent with his peripheral neuropathy. He has strong, bounding pedal and posterior tibial pulses on my exam. The foot is warm and capillary refill is normal. Psych: Mental Status: mental status grossly normal Attitude: cooperative Insight: Good insight present (Psych) Judgement: Good judgement present (Psych) Results Labs 11/25/24 04:29 11/25/24 04:29 Labs: Abnormal lab results 11/25/24 11/25/24 11/25/24 Range/Units 04:29 08:13 11:43 WBC 11.6 H (4.5-10.0) K/mm3 RBC 4.36 L (4.6-6.20) M/mm3 Hgb 11.7 L (14.0-18.0) g/dL Hct 33.8 L (42.0-52.0) % MCV 77.5 L (80-100) fl Lymph % (Auto) 17.7 L (18.3-44.2) % [place] % (Auto) 9.5 H (2.6-8.5) % [place] # (Auto) 1.1 H (0.1-0.6) K/mm3 Abs Immat Gran (auto) 0.05 H (0.00-0.031) K/mm3 Absolute Neuts (auto) 8.2 H (1.3-6.7) K/mm3 ESR 100 H (0-20) mm/hr Sodium 135 L (137-145) mmol/L Glucose 189 H (65-110) mg/dL POC Capillary Glucose 186 H 161 H (65-105) mg/dl Hemoglobin A1c 8.7 H (<5.7) % C-Reactive Protein 4.2 H (<1.0) mg/dL Diabetes panel 11/25/24 Range/Units 04:29 Sodium 135 L (137-145) mmol/L Potassium 4.5 (3.4-5.0) mmol/L Chloride 101 (98-107) mmol/L Carbon Dioxide 27 (22-30) mmol/L BUN 14 D (9-20) mg/dL Creatinine 1.13 (0.7-1.3) mg/dL Glucose 189 H (65-110) mg/dL Hemoglobin A1c 8.7 H (<5.7) % Calcium 9.5 (8.4-10.2) mg/dL AST 21 (17-59) U/L ALT 17 (6-50) U/L Alkaline Phosphatase 110 (38-126) U/L Total Protein 8.0 (6.3-8.2) g/dL Albumin 4.1 (3.5-5.1) g/dL Calcium panel 11/25/24 Range/Units 04:29 Calcium 9.5 (8.4-10.2) mg/dL Albumin 4.1 (3.5-5.1) g/dL Pituitary panel 11/25/24 Range/Units 04:29 Sodium 135 L (137-145) mmol/L Potassium 4.5 (3.4-5.0) mmol/L Chloride 101 (98-107) mmol/L Carbon Dioxide 27 (22-30) mmol/L BUN 14 D (9-20) mg/dL Creatinine 1.13 (0.7-1.3) mg/dL Glucose 189 H (65-110) mg/dL Calcium 9.5 (8.4-10.2) mg/dL Adrenal panel 11/25/24 Range/Units 04:29 Sodium 135 L (137-145) mmol/L Potassium 4.5 (3.4-5.0) mmol/L Chloride 101 (98-107) mmol/L Carbon Dioxide 27 (22-30) mmol/L BUN 14 D (9-20) mg/dL Creatinine 1.13 (0.7-1.3) mg/dL Glucose 189 H (65-110) mg/dL Calcium 9.5 (8.4-10.2) mg/dL Total Bilirubin 0.7 (0.2-1.3) mg/dL AST 21 (17-59) U/L ALT 17 (6-50) U/L Alkaline Phosphatase 110 (38-126) U/L Total Protein 8.0 (6.3-8.2) g/dL Albumin 4.1 (3.5-5.1) g/dL All other labs normal. Imaging Additional studies: ITS Impressions Foot X-Ray 11/25/24 06:15 Impression: No osseous or articular abnormality. Soft tissue ulcer to plantar aspect of the midfoot. Foot CT 11/25/24 06:18 IMPRESSION: Shallow soft tissue ulcer to plantar aspect of the midfoot with probable surrounding cellulitis. No abscess. No evidence for osteomyelitis.
[2024-11-25 16:47] LABS: Glucose Point of Care 117 mg/dl (65-105)
[2024-11-25] MEDS: cefTRIAXone 2 GM/NS 100 ML 2 GM/100 ML BAG IVPB (17:33)
[2024-11-25] MEDS: DOXYCYCLINE HYCLATE 100 MG TABLET PO (20:17)
[2024-11-25] MEDS: INSULIN GLARGINE (*BKC) 100 UNITS/ML 8 UNITS SUB-Q (20:18)
[2024-11-25 20:47] LABS: Glucose Point of Care 136 mg/dl (65-105)
[2024-11-25 21:23] VITALS: BP 121/80; PULSE 90; RESP 14; TEMP 36.8; O2SAT 100
[2024-11-26 05:16] VITALS: BP 135/79; PULSE 84; RESP 16; TEMP 36.4; O2SAT 100
[2024-11-26 06:26] LABS: Basophils Absolute Auto 0.1 K/mm3 (0.0-0.1); Basophils Percent Auto 0.7 % (0.2-1.2); Eosinophils Absolute Auto 0.1 K/mm3 (0-0.3); Eosinophils Percent Auto 1.5 % (0-4.4); Hematocrit 29.5 % (42.0-52.0); Hemoglobin 9.7 g/dL (14.0-18.0); Immature Granulocyte Absolute 0.04 K/mm3 (0.00-0.031); Immature Granulocyte Percent A 0.5 % (0-0.5); Lymphocytes Absolute Auto 1.62 K/mm3 (0.9-3.2); Lymphocytes Percent Auto 18.3 % (18.3-44.2); Mean Corpuscular HGB Conc 32.9 g/dl (32-36); Mean Corpuscular Hemoglobin 26.1 pg (26-34); Mean Corpuscular Volume 79.5 fl (80-100); Mean Platelet Volume 10.2 fl (7.4-10.4); Monocytes Absolute Auto 0.8 K/mm3 (0.1-0.6); Monocytes Percent Auto 8.8 % (2.6-8.5); Neutrophils Absolute Auto 6.2 K/mm3 (1.3-6.7); Neutrophils Percent Auto 70.2 % (45.5-73.1); Platelet Count Result 287 k/mm3 (150-375); Red Blood Count 3.71 M/mm3 (4.6-6.20); Red Cell Distribution Width 13.5 % (11.5-14.5); White Blood Count 8.9 K/mm3 (4.5-10.0)
[2024-11-26 06:48] LABS: Alanine Aminotransferase 15 U/L (6-50); Albumin Level 3.6 g/dL (3.5-5.1); Alkaline Phosphatase 100 U/L (38-126); Anion Gap 8 mmol/L (4-12); Aspartate Amino Transferase 19 U/L (17-59); Bilirubin,Total 0.3 mg/dL (0.2-1.3); Blood Urea Nitrogen 15 mg/dL (9-20); Calcium 9.1 mg/dL (8.4-10.2); Carbon Dioxide 26 mmol/L (22-30); Chloride 103 mmol/L (98-107); Estimated CRCL calculation 64 ml/min; Estimated Glomerular Filt Rate 59; Glucose 113 mg/dL (65-110); Potassium 4.3 mmol/L (3.4-5.0); Sodium 137 mmol/L (137-145)
[2024-11-26 08:10] LABS: Glucose Point of Care 107 mg/dl (65-105)
[2024-11-26] MEDS: ENOXAPARIN 40 MG/0.4 ML SYRINGE SUB-Q (08:28)
[2024-11-26] MEDS: DOXYCYCLINE HYCLATE 100 MG TABLET PO (08:28)
--- NOTE | 2024-11-26 08:34 | P.PNIM_ITS ---
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 Briscoe. - Not meeting sepsis criteria - Antibiotics: Vanc, cefe, flagyl started on 11/25 in the ED. Spoke with [facility] pharmacy and will transition to Rocephin and doxy. - Blood cultures obtained on 11/25 pending - Foot XR: No osseous or articular abnormality. Soft tissue ulcer to plantar aspect fo the midfoot. - Foot CT: Shallow soft tissue ulcer to plantar aspect of the midfoot with probable surrounding cellulitis. No abscess. No evidence for osteomyelitis - Monitor vital signs, I&Os, neuro status and patient is a fall risk - Monitor serum electrolytes, CBC, cultures, WBC and temp curve - Consulted wound care - Consulted general surgery, appreciate recommendations (2) Type 2 diabetes mellitus: Code(s): E11.9 - Type 2 diabetes mellitus without complications Status: Acute Assessment and Plan: - hypoglycemia protocol - POC blood glucose ACHS - home medication - lantus 10 units and metformin 250 mg BID - correct regimen ordered - lantus 8 units (20% less than baseline given hospitalization) and SSI - A1C 8.7 on 11/25/2024 (3) Elevated blood pressure reading: Code(s): R03.0 - Elevated blood-pressure reading, without diagnosis of hypertension Status: Acute Assessment and Plan: Blood pressures slightly elevated on admission with systolics into the 140s, hwoever currently stable in the 110s. Hesitant to resume prior antihypertensives as blood pressure is stable without them at this time. On chart review patient was previously discharged on 07/02/24 on losartan 50 mg daily and Jardiance 10 mg daily Continue to monitor Subjective Date/time seen: 11/26/24 08:34 Interval history: 54 year old male with past medical history of diabetes with associated diabetic peripheral neuropathy and hypertension who presented to the hospital with worsening left diabetic foot wound. 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 Briscoe. Review of Systems Review of Systems: All systems reviewed & are unremarkable except as noted in HPI and below Exam Narrative: AF HR General: male in no acute respiratory distress who is nontoxic appearing, lying semi recumbent in bed. HEENT: Normocephalic. Atraumatic. Extraocular movement intact. Sclera clear and anicteric. No facial asymmetry. Neck: Neck was supple. No dominant adenopathy, thyromegaly or masses. Chest: Lungs are clear to auscultation bilaterally. No wheezes or crackles. CV: Heart was regular rate and rhythm. S1/S2. No murmurs, gallops, or rubs. Abd: Abdomen was soft. Nontender. Nondistended. Positive bowel sounds. No o rganomegaly or masses. Ext: DP pulses bilaterally. Several superficial diabetic foot ulcers to the left foot. Well healing. Without drainage. Right foot with well healing 2nd toe amputation and dry ulcer to the tip of great toe. Neuro: Patient is alert and oriented x4. Strength is 5/5 in both upper extremities. Speech is clear. Psych: Normal mood and affect. Patient is pleasant and cooperative. Objective Data Vital Signs Vital Signs: Vital Signs - 24 hr 11/25/24 14:00 11/25/24 21:00 11/25/24 21:23 Temperature 96.9 F L 98.2 F Pulse Rate 92 90 Respiratory Rate 16 14 Blood Pressure 113/76 121/80 Pulse Oximetry 100 100 Oxygen Delivery Room Air 11/26/24 05:16 Temperature 97.6 F Pulse Rate 84 Respiratory Rate 16 Blood Pressure 135/79 Pulse Oximetry 100 Oxygen Delivery Intake/Output Intake/Output: Intake & Output 11/23/24 11/24/24 11/25/24 11/26/24 23:59 23:59 23:59 23:59 Intake Total 963 500 Balance 963 500 Meds/Results Medications: Active Medications Generic Name Dose Route Start Last Admin Trade Name Freq PRN Reason Stop Dose Admin Acetaminophen 650 mg 11/25/24 06:31 Acetaminophen 325 Mg Tablet PO Q4H PRN Mild Pain (1-3) or Fever Dextrose 12.5 gm 11/25/24 06:31 Dextrose 50% 25 Gm/50 Ml Syringe IV PUSH PRN PRN Hypoglycemia Protocol Doxycycline Hyclate 100 mg 11/25/24 21:00 11/26/24 08:28 Doxycycline Hyclate 100 Mg Tablet PO 100 mg Q12HR MALINI Administration Enoxaparin Sodium 40 mg 11/25/24 09:00 11/26/24 08:28 Enoxaparin 40 Mg/0.4 Ml Syringe SUB-Q 40 mg DAILY MALINI Administration Glucagon 1 mg 11/25/24 06:31 Glucagon For Inj 1 Mg Vial IM PRN PRN Hypoglycemia Protocol Glucose 15 gm 11/25/24 06:31 Glucose Oral Gel 15 Gm Of Glucse In 37.5 Gm Tube PO PRN PRN Hypoglycemia Protocol Dextrose 1,000 mls @ 100 mls/hr 11/25/24 06:31 Dextrose 5% 1,000 Ml IVPB PRN PRN Hypoglycemia Protocol Ceftriaxone Sodium 2 gm in 100 mls @ 200 mls/hr 11/25/24 18:00 11/25/24 18:03 Rocephin 2 Gm/Ns 100 Ml IVPB Infused Q24H MALINI Infusion Insulin Aspart 3 - 6 units 11/25/24 08:00 11/26/24 08:16 Insulin Aspart (*Bkc) 100 Units/Ml SUB-Q Not Given TIDWM [facility] Protocol Insulin Aspart 1 - 3 units 11/25/24 21:00 11/25/24 20:18 Insulin Aspart (*Bkc) 100 Units/Ml SUB-Q Not Given HS [facility] Protocol Insulin Glargine 8 units 11/25/24 21:00 11/25/24 20:18 Insulin Glargine (*Bkc) 100 Units/Ml SUB-Q 8 units HS [facility] Administration Ondansetron HCl 4 mg 11/25/24 06:31 Ondansetron Inj 4 Mg/2 Ml Vial IV PUSH Q4H PRN Nausea Radiology Results: ITS Impressions Foot X-Ray 11/25/24 06:15 Impression: No osseous or articular abnormality. Soft tissue ulcer to plantar aspect of the midfoot. Foot CT 11/25/24 06:18 IMPRESSION: Shallow soft tissue ulcer to plantar aspect of the midfoot with probable surrounding cellulitis. No abscess. No evidence for osteomyelitis. Labs Labs: Laboratory Results - last 24 hr 11/25/24 11/25/24 11/25/24 04:29 11:43 16:43 WBC RBC Hgb Hct MCV MCH MCHC RDW Plt Count MPV Immature Gran % (Auto) Neut % (Auto) Lymph % (Auto) [place] % (Auto) Eos % (Auto) Baso % (Auto) Lymph # (Auto) [place] # (Auto) Eos # (Auto) Baso # (Auto) Abs Immat Gran (auto) Absolute Neuts (auto) Absolute Nucleated RBC Nucleated RBC % Sodium Potassium Chloride Carbon Dioxide Anion Gap BUN Creatinine Estim Creat Clear Calc Estimated GFR Glucose POC Capillary Glucose 161 H 117 H Hemoglobin A1c 8.7 H Calcium Total Bilirubin AST ALT Alkaline Phosphatase Total Protein Albumin 11/25/24 11/26/24 11/26/24 19:56 05:55 08:06 WBC 8.9 RBC 3.71 L Hgb 9.7 L Hct 29.5 L MCV 79.5 L MCH 26.1 MCHC 32.9 RDW 13.5 Plt Count 287 MPV 10.2 Immature Gran % (Auto) 0.5 Neut % (Auto) 70.2 Lymph % (Auto) 18.3 [place] % (Auto) 8.8 H Eos % (Auto) 1.5 Baso % (Auto) 0.7 Lymph # (Auto) 1.62 [place] # (Auto) 0.8 H Eos # (Auto) 0.1 Baso # (Auto) 0.1 Abs Immat Gran (auto) 0.04 H Absolute Neuts (auto) 6.2 Absolute Nucleated RBC 0.000 Nucleated RBC % 0.0 Sodium 137 Potassium 4.3 Chloride 103 Carbon Dioxide 26 Anion Gap 8 BUN 15 Creatinine 1.28 Estim Creat Clear Calc 64 Estimated GFR 59 Glucose 113 H POC Capillary Glucose 136 H 107 H Hemoglobin A1c Calcium 9.1 Total Bilirubin 0.3 AST 19 ALT 15 Alkaline Phosphatase 100 Total Protein 8.0 Albumin 3.6 Quality VTE Prophylaxis VTE prophylaxis: pharmacologic ordered
[2024-11-26 09:43] LABS: Iron 46 ug/dL (49-181)
[2024-11-26 09:53] LABS: Percent Iron Saturation 21 % (20-50)
[2024-11-26 11:58] LABS: Glucose Point of Care 98 mg/dl (65-105)
[2024-11-26] MEDS: AMOXICILLIN/CLAVULANATE K 875-125 MG TAB 1 TABLET PO (13:56)
--- NOTE | 2024-11-26 14:07 | P.DS_ITS ---
DS: Admitting Diagnosis Discharge Date 11/26/2024 Admitting Diagnosis Cellulitis of foot Type 2 diabetes Elevated blood pressure reading DS: Discharge Diagnosis Discharge Diagnosis (1) Cellulitis of foot, left: Code(s): L03.116 - Cellulitis of left lower limb Status: Acute (2) Type 2 diabetes mellitus: Code(s): E11.9 - Type 2 diabetes mellitus without complications Status: Acute (3) Elevated blood pressure reading: Code(s): R03.0 - Elevated blood-pressure reading, without diagnosis of hypertension Status: Acute DS: Summary Hospital Course Reason for hospitalization: Cellulitis of foot Type 2 diabetes Elevated blood pressure reading Hospital Course: 54 year old male with past medical history of diabetes with associated diabetic peripheral neuropathy and hypertension who presented to the hospital with worsening left diabetic foot wound. 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 Briscoe. Patient not meeting sepsis criteria on admission. Foot XR showing no osseous or articular abnormality. Soft tissue ulcer to plantar aspect fo the midfoot. Foot CT showing shallow soft tissue ulcer to plantar aspect of the midfoot with probable surrounding cellulitis. No abscess. No evidence for osteomyelitis. Started on IV antibiotics for diabetic foot ulcers. Surgery consulted. No surgical intervention needed and surgery notes that they do not feel as though there is any ongoing/active infection. Per surgery patient is able to discharge from their perspective. Discussed patient with ID pharmacy and will cover for diabetic foot ulcer at discharge. Also discussed with patient that he is to continue the silver gel that he has been doing at home. He states understanding. Patient is to follow up with wound care as scheduled. On chart review patient was previously discharged on 07/02/24 on losartan 50 mg daily and Jardiance 10 mg daily. During admission was planning to resume these medications however blood pressures remained stable despite not being on them. Discussed with patient that he is to monitor his blood pressure at home and record these for his follow up with PCP. He states understanding. Patient had no complaints at time of discharge denies chest pain, shortness a breath, palpitations, nausea/vomiting, and abdominal pain. He is able to independently ambulate throughout the day room. Patient discharged home in a stable condition. He was given information to the on-call PCP given that he does not have a follow-up appointment with his new PCP Dr. Munguia until December 29. Patient is also to follow up with wound care as previously scheduled. Also discussed with patient that he should discuss with his PCP about a vascular follow up, he states understanding. Status at Discharge Functional status at discharge: independent ambulation Time Spent with Patient Time attestation: Total time spent providing and/or coordinating discharge services: Time spent: Greater than 30 minutes Exam Narrative: AF HR 84 RR 16 SPO2 100 BP 135/79 General: male in no acute respiratory distress who is nontoxic appearing, lying semi recumbent in bed. HEENT: Normocephalic. Atraumatic. Extraocular movement intact. Sclera clear and anicteric. No facial asymmetry. Chest: Lungs are clear to auscultation bilaterally. CV: Heart was regular rate and rhythm. Abd: Abdomen was soft. Nontender. Nondistended. Positive bowel sounds. Ext: DP pulses bilaterally. Several superficial diabetic foot ulcers to the left foot. Well healing. Without drainage. Right foot with well healing 2nd toe amputation and dry ulcer to the tip of great toe. Neuro: Patient is alert and oriented x4. Speech is clear. DS: Data Data Completed and Pending Completed studies during hospitalization: foot xr foot ct Labs on day of discharge: Labs from last 24 hours 11/26/24 11/26/24 11/26/24 11:53 08:06 05:55 WBC 8.9 RBC 3.71 L Hgb 9.7 L Hct 29.5 L MCV 79.5 L MCH 26.1 MCHC 32.9 RDW 13.5 Plt Count 287 MPV 10.2 Immature Gran % (Auto) 0.5 Neut % (Auto) 70.2 Lymph % (Auto) 18.3 [place] % (Auto) 8.8 H Eos % (Auto) 1.5 Baso % (Auto) 0.7 Lymph # (Auto) 1.62 [place] # (Auto) 0.8 H Eos # (Auto) 0.1 Baso # (Auto) 0.1 Abs Immat Gran (auto) 0.04 H Absolute Neuts (auto) 6.2 Absolute Nucleated RBC 0.000 Nucleated RBC % 0.0 Sodium 137 Potassium 4.3 Chloride 103 Carbon Dioxide 26 Anion Gap 8 BUN 15 Creatinine 1.28 Estim Creat Clear Calc 64 Estimated GFR 59 Glucose 113 H POC Capillary Glucose 98 107 H Calcium 9.1 Iron 46 L TIBC 220 L % Saturation 21 Total Bilirubin 0.3 AST 19 ALT 15 Alkaline Phosphatase 100 Total Protein 8.0 Albumin 3.6 Vitamin B12 362.0 Folate 10.0 11/25/24 11/25/24 19:56 16:43 WBC RBC Hgb Hct MCV MCH MCHC RDW Plt Count MPV Immature Gran % (Auto) Neut % (Auto) Lymph % (Auto) [place] % (Auto) Eos % (Auto) Baso % (Auto) Lymph # (Auto) [place] # (Auto) Eos # (Auto) Baso # (Auto) Abs Immat Gran (auto) Absolute Neuts (auto) Absolute Nucleated RBC Nucleated RBC % Sodium Potassium Chloride Carbon Dioxide Anion Gap BUN Creatinine Estim Creat Clear Calc Estimated GFR Glucose POC Capillary Glucose 136 H 117 H Calcium Iron TIBC % Saturation Total Bilirubin AST ALT Alkaline Phosphatase Total Protein Albumin Vitamin B12 Folate Preliminary micro results at discharge 11/25/24 06:12 Blood Culture - Preliminary Blood 11/25/24 06:13 Blood Culture - Preliminary Blood Discharge Plan Discharge Attending physician on discharge: Sanya Smart Consulting providers: Sadiq Li Discharging Clinician: Keshia Nunez Anticipated Discharge Date/Time: 11/26/24 14:02 Patient Disposition: Home, Self-Care Activity: as tolerated Diet: as tolerated and diabetic Discharge Instructions: Discharge disposition: Patient admitted for diabetic ulcers to his left foot and concern for possible cellulitis Evaluated by surgery during admission No surgical intervention required Continue with local wound care with silver gel dressing changes. Follow-up in the wound clinic after discharge. Take medications as prescribed Augmentin twice a day, course to be completed on 11/29 Doxycycline twice a day, course to be completed on 11/29 Attached is information on this medication Continue silver gel for wound as per wound care Monitor blood pressures, record readings for follow up appointment with new primary care provider in december Take caution while standing, rising, or moving Change positions slowly taking a break between each position change If you standing feel dizzy sit back down and take a break Monitor blood glucose levels Continue diabetic diet Encouraged to continue with yearly vaccinations Return to the emergency department if he developed sudden shortness of breath, chest pain, nausea, vomiting, upset stomach or intractable diarrhea Return to the emergency department if you develop fever greater than 101.5 Follow-up with the primary care physician within 1-2 weeks Attached is information to Dr. Naranjo office as he is the airport operations officer primary care provider. You can follow up with him prior to establishing to your new primary care. Thank you for choosing [facility] for your healthcare needs Patient Instructions: Antibiotic Form, Doxycycline (By mouth), Amoxicillin/Clavulanate Potassium (By mouth), Foot Ulcers in a Person with Diabe celio (DC) Patient Language: Irish Stand Alone Forms: General Discharge Information Follow-up/Referrals: Roderick Naranjo MD [Physician] - 1 Week Discharge Medications: New doxycycline hyclate 100 mg Tablet 100 mg PO Q12HR Qty: 7 0RF amoxicillin-pot clavulanate 875-125 mg tablet 1 tablet PO Q12H Qty: 7 0RF Continued insulin glargine 100 unit/mL (3 mL) insulin pen 10 unit subcut HS Qty: 15 1RF metformin 500 mg tablet 250 mg PO BIDWMEAL Qty: 60 1RF (DME) blood-glucose meter [OneTouch [place]io Flex meter[place] [facility] [place]: 1 0RF Rx Instructions: May substitute to in-stock meter and/or covered by insurance. Use As Directed (DME) OneTouch Verio test strips Strip Qty: 1 1RF Rx Instructions: May substitute to in-stock and/or covered by insurance strips. Use As Directed (DME) pen needle, diabetic [BD Ultra-Fine Cristin Pen Needle] 32 gauge x 5/32 needle Qty: 1 1RF Rx Instructions: May substitute to meet patient needs. Use As Directed (DME) lancets [OneTouch Delica Plus Lancet] [facility] Qty: 1 1RF Rx Instructions: May substitute to in-stock and/or covered by insurance lancets. Use As Directed Date of admission: 11/25/24 06:52 Primary Care Provider: PHYSICIAN,REAL ESTATE APPRAISER Admitting Provider: Cecile Matthews Attending physician on admission: Cecile Matthews Condition: Stable Hospitalist MIPS Heart Failure (Exclusion) Patient has history of Heart Transplant or Left Ventricular Assistive Device?: No IF YES, STOP HERE Heart Failure (Qualifier) Patient has current or prior documentation of LVEF less than or equal to 40%, or mod/servere depressed LVSF?: No IF NO, STOP HERE
== END 2024-11-26 16:20 | disposition home or self-care (01) ==
LOC: ANHED 06:27 → ANH3MEDSUR 07:07
PROVIDERS: Student in an Organized Health Care Education/Training Program; Admitting Provider Internal Medicine; Emergency Provider Emergency Medicine; Visit Provider Internal Medicine
DX: L03.116 Cellulitis of left lower limb (principal); E11.621 Type 2 diabetes mellitus with foot ulcer; L97.529 Non-pressure chronic ulcer of other part of left foot with unspecified severity; L97.519 Non-pressure chronic ulcer of other part of right foot with unspecified severity; E11.42 Type 2 diabetes mellitus with diabetic polyneuropathy; E11.69 Type 2 diabetes mellitus with other specified complication; N52.8 Other male erectile dysfunction; I10 Essential (primary) hypertension; Z89.421 Acquired absence of other right toe(s); Z79.4 Long term (current) use of insulin; Z79.84 Long term (current) use of oral hypoglycemic drugs
CPT/HCPCS: 36415; 73630; 73701; 80053; 82607; 82746; 82948; 83036; 83540; 83550; 83605; 84145; 85025; 85610; 85652; 85730; 86140; 87040; 96365; 96366; 96367; 96372; 96375; 99212; 99285; A9270; G0378; G0463; J0692; J0696; J1650; J1815; J1836; J3370; Q9967